=== PATIENT | male | born 1950 | race Caucasian/White ===

== ENCOUNTER 2023-05-05 09:02 | Inpatient (IN) ==
--- OUTSIDE RECORDS SUMMARY | 2023-05-05 09:08 | External Medical Summary | Summary of Care ---
Author Name Unknown Organization [facility] Address [address] [place] [address] Phone [phone] Care Team Providers Care Band Edger Name Role Phone Betty Muñoz MD Primary Care Provider [phone] Reason for Visit * Reason Onset Date Comments Advice 05/04/2023 COVID Encounter Details Date Type Department Care Team (Late st Contact Info) Description 05/04/2023 Telephone General Internal Medicine [facility] [address] [place] [address] Betty Muñoz MD [address] [place] [address] Advice (COVID) Allergies Active Allergy Reactions Criticality Noted Date Comments Iodinated Contrast Media Rash 10/06/2009 Iodine Rash 04/17/2001 documented as of this encounter (statuses as of 05/04/2023) Medications Medication Sig Dispensed Refills Start Date End Date Status VITAMIN B COMPLEX PO CAPS 1 cap daily 0 Active ASPIRIN EC 81 MG PO TBECIndications:Dysli pidemia, goal LDL below 100,Old myocardial infarct Take 1 Tablet by mouth in the morning. 0 07/05/2010 Active sterile water for irrigation SOLN 240 mL with hypertonic saline rinse PACK 2 Packet 2 Packets 2 times a day. 0 Active Vitamin D 25 MCG (1000 UT) Oral Tablet Take by mouth. 0 Active Magnesium Oxide 400 MG Oral TabletIndications:Jesus pauline variant,Visual aura Take 1 Tab by mouth daily. St 01/31/2021 1 Tab 0 01/31/2021 Active Metoprolol Succinate ER 25 MG Oral Tablet Extended Release 24 Hour (toPROL XL)Indications:Hypert rophic non-obstructive cardiomyopathy (HCC) Take 0.5 Tablets by mouth every evening. 45 Tablet 3 06/15/2022 Active Ipratropium Bern 0.03 % Nasal Solution 2 squirts each nostril 2-4 times daily. May precede with nasal saline 90 mL 3 08/15/2022 Active Zoster Vac Recomb Adjuvanted 50 MCG/0.5ML Intramuscular Suspension Reconstituted (Shingrix)Indications :Need for vaccination for zoster Inject 0.5 mL into a large muscle now and repeat dose in 60 to 180 days 1 Each 1 10/09/2022 Active CPAP every night at bedtime. 0 Active Atorvastatin Calcium 20 MG Oral Tablet (Lipitor)Indications: Dyslipidemia, goal LDL below 100 take 1 tablet by mouth once daily 90 Tablet 1 03/05/2023 Active Mometasone Furoate 50 MCG/ACT Nasal Suspension instill 2 sprays into each nostril once daily if needed for allergies 51 g 1 03/05/2023 Active Mirtazapine 15 MG Oral Tablet (Remeron)Indications: Generalized anxiety disorder,Panic disorder without agoraphobia,Recurrent major depressive disorder, in partial remission (HCC) Take 1.5 Tablets by mouth at bedtime. 45 Tablet 1 04/03/2023 Active busPIRone HCl 10 MG Oral Tablet (Buspar)Indications:G eneralized anxiety disorder,Panic disorder without agoraphobia Take 1 Tablet by mouth in the morning and 1 Tablet at noon and 1 Tablet in the evening and 1 Tablet before bedtime. 120 Tablet 2 04/16/2023 Active LORazepam 0.5 MG Oral Tablet (Ativan)Indications:G eneralized anxiety disorder,Panic disorder without agoraphobia Take 1 Tablet by mouth daily as needed for Anxiety. 30 Tablet 0 04/19/2023 Active documented as of this encounter (statuses as of 05/04/2023) Active Problems Problem Noted Date Diagnosed Date AGATHA (obstructive sleep apnea) 05/30/2022 Generalized anxiety disorder 02/24/2022 Panic disorder without agoraphobia 02/24/2022 Recurrent major depressive disorder, in partial remission 02/24/2022 Status post cataract surgery, unspecified latera lity 02/01/2022 Overview: Cataract surgery left-01/10/22, right-01/17/2022 Apical variant hypertrophic cardiomyopathy 02/01 Depression with anxiety 01/02/2022 Mixed rhinitis 01/19/2020 Visual aura 09/24/2018 Migraine variant 09/24/2018 LVH (left ventricular hypertrophy) 09/09/2018 Personal history of other malignant neoplasm of skin 03/04/2018 Overview: Trunk/neck GERD (gastroesophageal reflux disease) 3 DYSLIPIDEMIA, GOAL LDL BELOW 100 05/13/2009 Overview: Per Lipid Taxonomy. documented as of this encounter (statuses as of 05/04/2023) Resolved Problems Problem Noted Date Diagnosed Date Resolved Date Deviated nasal septum 12/15/20192021 Rhinorrhea 12/15/2019 01/19/2020 Helicobacter pylori (H. pylori) infection 12/29/2015 03/27/2019 Overview: Treated in 11/2015 Coronary atherosclerosis of [place] coronary artery 11/11/2010 02/06/2018 Old myocardial infarct 07/05/201010/25 UNILAT INGUINAL HERNIA- right 10/06/2009 03/04/2018 ADVANCE DIRECTIVE INFORMATION 07/21/2009 10/09/2022 Overview: Yes, Patient instructed to provide copy of advance directive for provider to review and to be scanned into Electronic Medical Record Dyslipidemia, goal LDL below 160 05/27/2008 05/13/2009 Overview: Per Lipid Taxonomy. 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 2 03/04/2018 Overview: ICD-10 update of inactive term Malignant neoplasm of skin of trunk 04/19/2002 03/04/2018 Overview: ICD-10 update of inactive term epidermal cyst - R eye 495 04/19/2002 03/04/2018 OTHER [id number] 04/19/2002 03/04/2018 Other atopic dermatitis 04/19/200212/03 Overview: ICD-10 update of inactive term Other allergic rhinitis 04/17/200101/02 Overview: ICD-10 update of inactive term Dyslipidemia, goal to be determined 04/28/2009 Overview: Per Lipid Taxonomy Acute WA, anterior wall 05/05 Hypoglycemia 12/27/2017 Benign neoplasm of prostate 03/04/2018 documented as of this encounter (statuses as of 05/04/2023) Immunizations Name Administration Dates Next Due COVID-19 mRNA, LNP-s, No Pre serve, 2-Dose Series (Moderna) 03/29/2021,07/30/2020,07/02/2020 COVID-19, mRNA, LNP-s, PF, B ooster, 100mcg/0.5mg (Moderna) 09/13/2021 Pneumococcal Conjugate Vacc, 13 Valent (Prevnar) 12/18/2016 Pneumococcal Polysaccharide PPV23 (Pneumovax) 12/27/2017,05/21/2006 SEASONAL INFLUENZA, PF, 6 M & Above, IM , (FLULAVAL or FLUZONE) 03/01/2018 Season Influenza, Quad, PF, Adjuvanted, 65+ Yrs, IM (FLUAD) 02/14/2020 Seasonal Influenza, Quadriva lent Hd (Fluzone Hd) 02/17/2023,04/08/2022,02/22/2021 Seasonal Influenza, Quadriva lent, No Preserve, IM 02/14/2017,03/06/2016 Seasonal Influenza, Split, I IV3, With Preserve, Inj 02/09/2015,03/04/2014,02/12/2013,02/02,03/18/2011,02/16/2010,04/28/20,04/07/2008,04/16/2007 02/10/2016 Seasonal Influenza, Trivalen t, Adjuvanted, 65+ yrs 02/10/2019 TD - Tetanus/Diptheria (ADULT) 10/10/2007 documented as of this encounter Social History Tobacco Use Types Packs/Day Years Used Date Smoking Tobacco: Former Cigarettes 2 20 Q uit: 01/02/1993 Smokeless Tobacco: Former Comments:no passive smoke Alcohol Use Standard Drinks/Week Comments No 0 (1 standard drink = 0.6 oz pur e alcohol) PHQ-2 Answer Date Recorded PHQ Adult Total Score 1 10/04/2022 Hunger Vital Sign Answer Date Recorded Within the past 12 months, y ou worried that your food would run out before you got the money to buy more. Never true 10/05/19 Within the past 12 months, t he food you bought just didn't last and you didn't have money to get more. Never true 10/04/2022 Sex and Gender Information Value Date Recorded Sex Assigned at Male 09/24/2018 11:17 AM EDT Gender Identity Male 09/24/2018 11:17 AM EDT Sexual Orientation Straight 09/24/2018 11 :17 AM EDT Job Start Date Occupation Industry Not on file Not on file Not on file documented as of this encounter Miscellaneous Notes * Telephone Encounter - Ollie Weiner LPN - 05/04/2023 4:36 PM EST Left message for patient to return call. * Telephone Encounter - Betty Muñoz MD - 05/04/2023 3:54 PM EST Noted. Recommend to monitor pulse ox , if <95% or If he has any worsening sx of [facility] or go to ER * Telephone Encounter - Demetria Romero LPN - 05/04/2023 2:38 PM EST Spoke with patient's . Patient had a slight sore throat and fever last evening but they are gone now. He is just not feeling well overall. "Out of sorts" as his put it. He does not wish to take the paxlovid at this time. * Telephone Encounter - Betty Muñoz MD - 05/04/2023 12:38 PM EST Clarify symptoms. Isolate for 5 days from onset of symptoms, increase intake of fluids, Tylenol as needed for fever or body aches. Continue to wear mask of for for 5 additional days when out of the home.If not willing/able to wear mask needs to isolate for 10 days. We can try Paxlovid to reduce risk of worsening COVID. This medication is not FDA approved but usedunder the EUA. If patient is willing to try it, prescription will be sent. No alcohol or tylenol >2gm/day while on medication , hold statin while on med * Telephone Encounter - Yolette Saenz OSA - 05/04/2023 8:54 AM EST Reason for patient call/what is patient requesting? Has COVID. Wants advise on what to do. Have you had symptoms of COVID-19 such as fever, sore throat, shortness of breath? COVID19 Symptoms:yes Date of first symptoms: 05/03 Date of last fever: 05/04 Date of last symptoms: 05/04 Have you had close exposure to someone who tested positive for COVID-19? COVID19 Exposure: no Date of first exposure: Unknown Date of last exposure: unknown Testing location requested: Positive COVID 19 test in the past 90 days? Clinic Test No Home test Yes, positive Did you have 2 vaccines Yes Boosters Yes Call Details are Required documented in this encounter Plan of Treatment Upcoming Encounters Date Type Department Care Team (Late st Contact Info) Description 05/07/2023 11:00 AM EST Office Visit Psychiatry, [facility] [address] [place] [address] Shahla Lopez CRNP [address] [place] [address] 05/07/2023 3:00 PM EST Telemedicine Psychology, [address] [address], Psychology Group [address] [place] [address] 05/09/2023 10:00 AM EST Office Visit Dermatology [facility] [address] [place] [address] Alexsandra Butts PA-C [address] [facility] [place] [phone] 05/14/2023 3:00 PM EST Telemedicine Psychology, [address] [address], Psychology Group [address] [place] [phone] 05/21/2023 3:00 PM EST Telemedicine Psychology, [address] [address], Psychology Group [address] [place] [address] 10/10/2023 10:00 AM EDT Nurse Only Ancillary [facility] [address] [place] [address] Im, Nurse Annual Wellness [facility] [address] [place] [address] 10/10/2023 12:00 PM EDT Office Visit General Internal Medicine [facility] [address] [place] [address] Betty Muñoz MD [address] [facility] [place] [address] 01/31/2024 10:30 AM EDT Office Visit Allergy/Immunology [facility] [place] [address] [facility] [place] [address] Malgorzata Ingram PA-C [address] [facility] [place] [address] 03/21/2024 10:00 AM EDT Office Visit Sleep Disorders Ctr [facility] [place] [address] [place] [phone] Carla Montoya DO [address] [place] [address] 04/25/2024 1:40 PM EST Office Visit Dermatology [facility] [place] [address] [facility] [place] [address] Alexsandra Butts PA-C [address] [facility] [place] [phone] Health Maintenance Due Date Last Done Comments Hepatitis C Screening 1968 Cologuard 02/22/1996 Fecal Occult Blood Test 02/22/1996 Sigmoidoscopy 02/22/1996 Zoster Vaccines (1 of 2) 2001 DTaP,Tdap,and Td Vaccines (1 - Tdap) 10/11/2007 10/10/2007 COVID-19 Vaccine ( season) 2023 09/13/2021, 03/29/2021, 07/30/2020, Additional history exists Depression Screening 10/05/2023 10/04/2022 Colonoscopy 2027 2017, 02/03, 02/20/2014, Additional history exists Colorectal Cancer Screening 2027 Lipid Panel 09/16/2027 09/15/2022, 10/03, 01/31/2021, Additional history exists AAA Screening Completed 01/23/2017 Pneumococcal Vaccine: 65+ Years Completed 12/27/2017, 12/18/2016, 05/21/2006 Influenza Vaccine (FLU shot) Completed , 04/08/2022, 02/22/2021, Additional history exists GARDASIL-HPV IMMUNIZATION SERIES Aged Out No longer eligible based on patient's age to complete this topic Hepatitis B Aged Out No longer eligi ble based on patient's age to complete this topic MENINGOCOCCAL (MENACTRA/MENVEO) Aged Out No longer eligible based on patient's age to complete this topic documented as of this encounter Medical Devices Implanted Type Area Police Captain Senior Device Identifier Shelf Expiration Date Model / Serial / Lot Lens Intraoc 20.0 - [id number] - [id number] Implanted:Qty: 1 on 01/10/2022 by Woodrow Merlos MD at [facility] Left: Eye [employer] 06/03/2026 [id number] / [id number] / [id number] Lens Intraoc 20.0 - [id number] - [id number] Implanted:Qty: 1 on 01/17/2022 by Woodrow Merlos MD at [facility] Right: Eye [employer] 07/04/2026 [id number] / [id number] / [id number] documented as of this encounter Advance Directives Latest Code Status on File Code Status Date Activated Date Inactivated Comments No Code 01/17/2022 12:53 PM 01/17/2022 7:09 PM This order reflects the patients wishes and were consensually agreed upon. Question Answer Comments Discussion of Advance Directives occurred with: Patient Does the patient have a Living Will? No Does the patient have Health Care Power of Business Intelligence Reporting Analyst? No Code Status History Code Status Date Activated Date Inactivated Comments No Code 01/10/2022 10:23 AM 01/10/2022 4:37 PM This o rder reflects the patients wishes and were consensually agreed upon. Question Answer Comments Discussion of Advance Directives occurred with: Patient Does the patient have a Living Will? No Does the patient have Health Care Power of Business Intelligence Reporting Analyst? No Care Teams Band Edger Relationship Specialty Start Date End Date Betty Muñoz MD [address] [place] [address] PCP - General Internal Medicine 01/31/21 documented as of this encounter
--- OUTSIDE RECORDS SUMMARY | 2023-05-05 09:08 | External Medical Summary | Summary of Care ---
Author Name Unknown Organization [facility] Address [address] [place] [address] Phone [phone] Care Team Providers Care Machine Bender Name Role Phone Betty Muñoz MD Primary Care Provider [phone] Reason for Visit * Reason Comments NEW PATIENT New pt here for Reti na Evaluation. Pt states "I having issues with glare at night and film over my eyes. I did have cataract surgery and laser afterwards." Notes Dr. Carolina put plugs in and using drops and it help with film Encounter Details Date Type Department Care Team (Late st Contact Info) Description 04/11/2023 10:30 AM EST Office Visit Ophthalmology, [facility] [address] [facility] [place] [address] Corey Casiano, 132 [facility] [place] [address] Visual distortions of shape and size*; Glare sensitivity Allergies Active Allergy Reactions Criticality Noted Date Comments Iodinated Contrast Media Rash 10/06/2009 Iodine Rash 04/17/2001 documented as of this encounter (statuses as of 04/11/2023) Medications Medication Sig Dispensed Refills Start Date [...] evening. 45 Tablet 3 06/15/2022 Active Ipratropium [place] 0.03 % Nasal Solution 2 squirts each [...] CPAP every night at bedtime. 0 Active busPIRone HCl 10 MG Oral Tablet (Buspar)Indications:G eneralized anxiety disorder,Panic disorder without agoraphobia Take 1 Tablet by mouth in the morning and 1 Tablet at noon and 1 Tablet in the evening and 1 Tablet before bedtime. 120 Tablet 2 01/17/2023 Active Atorvastatin Calcium 20 MG Oral Tablet (Lipitor)Indications: Dyslipidemia, goal LDL below 100 take 1 tablet by mouth once daily 90 Tablet 1 03/05/2023 Active Mometasone Furoate 50 MCG/ACT Nasal Suspension instill 2 sprays into each nostril once daily if needed for allergies 51 g 1 03/05/2023 Active LORazepam 0.5 MG Oral Tablet (Ativan)Indications:G eneralized anxiety disorder,Panic disorder without agoraphobia Take 1 Tablet by mouth daily as needed for Anxiety. 30 Tablet 0 03/12/2023 Active Mirtazapine 15 MG Oral Tablet (Remeron)Indications: Generalized anxiety disorder,Panic disorder without agoraphobia,Recurrent major depressive disorder, in partial remission (HCC) Take 1.5 Tablets by mouth at bedtime. 45 Tablet 1 04/03/2023 Active documented as of this encounter (statuses as of 04/11/2023) Active Problems Problem Noted Date Diagnosed Date [...] as of this encounter (statuses as of 04/11/2023) Resolved Problems Problem Noted Date Diagnosed Date Resolved Date Deviated nasal septum 12/15/20192021 Rhinorrhea 12/15/2019 01/19/2020 Helicobacter pylori (H. pylori) infection 12/29/2015 03/27/2019 Overview: Treated in 11/2015 Coronary atherosclerosis of [place] coronary artery 11/11/2010 02/06/2018 Old myocardial infarct [...] inactive term epidermal cyst - R eye 04/19/2002 03/04/2018 OTHER ACNE-04/19/2002 03/04/2018 Other atopic dermatitis 04/19/200212/03 Overview: ICD-10 update of inactive term Other allergic rhinitis 04/17/200101/02 Overview: ICD-10 update of inactive term Dyslipidemia, goal to be determined 04/28/2009 Overview: Per Lipid Taxonomy Acute [place], anterior wall 05/05 Hypoglycemia 12/27/2017 Benign neoplasm of prostate 03/04/2018 documented as of this encounter (statuses as of 04/11/2023) Immunizations Name Administration Dates Next Due COVID-19 [...] Influenza, Split, I IV3, With Preserve, Inj 02/09/2015,03/04/2014,02/12/2013,02/02,03/18/2011,02/16/2010,04/28/20 09,04/07/2008,04/16/2007 02/10/2016 Seasonal Influenza, Trivalen t, Adjuvanted, 65+ yrs 02/10/2019 TD - Tetanus/Diptheria (ADULT) 10/10/2007 documented as of this encounter Social History Tobacco Use Types Packs/Day Years Used Date Smoking Tobacco: Former Cigarettes 2 20 Q uit: 01/02/1993 Smokeless Tobacco: Former Tobacco Cessation:Counseling Given: Not Answered Comments:no passive smoke Alcohol Use Standard Drinks/Week Comments No 0 (1 standard drink = 0.6 oz pur e alcohol) PHQ-2 Answer Date Recorded PHQ Adult Total Score 1 10/04/2022 Hunger Vital Sign Answer Date Recorded Within the past 12 months, y ou worried that your food would run out before you got the money to buy more. Never true 10/05/19 23 Within the past 12 months, t he [...] on file documented as of this encounter Last Filed Vital Signs Vital Sign Reading Time Taken Comments Blood Pressure 134/80 04/11/2023 10:54 AM EST Pulse 54 04/11/2023 10:54 AM EST Temperature - - Respiratory Rate - - Oxygen Saturation - - Inhaled Oxygen Concentration - - Weight - - Height - - Body Mass Index - - documented in this encounter Progress Notes * Corey Casiano DO - 04/11/2023 10:30 AM EST [facility] [place] Nursing notes reviewed. Eye vitals reviewed. Mood and Affect: normal HPI: Timothy Sorensen Jr. is a 73 year old male who presents for evaluation of retinas CC: glare Vision: unchanged Location (of CC): OU Quality/Severity: moderate Duration: >3 years Timing: gradual Context: nightime worse Associated Signs/Symptoms: none Modifying Factors: none No other eye complaints. Denies significant pain. Base Eye Exam Visual Acuity (Snellen - Linear) Right Left Dist sc 20/25 20/40 -1 Dist ph sc NI Correction: Glasses Tonometry (Tonopen, 10:41 AM) Right Left Pressure 14 10 Pupils Light Shape React APD Right 4 Round Brisk None Left 4 Round Brisk None Visual Kathleen (Counting fingers) Right Left Full Full Extraocular Movement Right Left Full Full Neuro/Psych Oriented x3: Yes Mood/Affect: Normal Dilation Both eyes: 0.5% Proparacaine, 2.5% Phenylephrine, 1.0% Mydriacyl @ 10:41 AM EXTERNAL: The ocular adnexae are unremarkable. SLE: Lids/Lashes: wnl OU Conjunctiva/Sclera: quiet OU Cornea: clear OU Anterior Chamber: deep and quiet OU Iris: normal OU; no NVI OU Lens: PCIOL OU; yag cap OU Dilated fundus exam OD: vitreous: clear, pvd optic nerve: 0.55, no edema/pallor/NVD macula: irreg fvr vessels: wnl periphery: wnl, no RT/RD Dilated fundus exam OS: vitreous: clear, pvd optic nerve: 0.55, no edema/pallor/NVD macula: irreg fvr vessels: wnl periphery: wnl, no RT/RD OCT Interpretation: OD: wide foveal depression, no irf/srf, +pvd OS: wide foveal depression, no irf/srf, +pvd OCTA Interpretation: 04/11/2023 OD: nml OS: nml A/P: 1. Wide foveal pit/depression OU -anatomical variance -no tx -does not correlate w/ pt's complaint of ongoing glare for 3 years F/u w/ retina prn Corey Casiano DO CC: Betty Muñoz MD CC: PCP: Betty Muñoz MD documented in this encounter Nursing Notes * Toy Vela COA - 04/11/2023 10:31 AM EST Timothy Sorensen Jr. is a 73 year old year old male referred by Dr. Carolina to evaluate for possible Retinal Evaluation. Patient's name preference, 'Genna'. Patient currently states Pt states "I having issues with glare at night and film over my eyes. I did have cataract surgery and laser afterwards." Notes put plugs in and using drops and it help with film Have you ever had any major surgery of serious injury of or around the eyes- yes (Cataract Surgery OU 2021, YAG CAP OU 2021) Are you diabetic? No FAMILY HISTORY: Family History Problem Relation Age of Onset Cancer Mother Other (Other) Mother denies any family history of skin diseases or skin cancer Hypertension Father Allergies Sister allergic rhinitis on AIT SOCIAL HISTORY: Social History Tobacco Use Smoking status: Former Packs/day: 2.00 Years: 20.00 Additional pack years: 0.00 Total pack years: 40.00 Types: Cigarettes Quit date: 01/02/1993 Years since quittin.2 Smokeless tobacco: Former Tobacco comments: no passive smoke Vaping Use Vaping Use: Never used Substance Use Topics Alcohol use: No Drug use: No PMH: Past Medical History: Diagnosis Date Acute IL, anterior wall (HCC) [facility] ?embolus cath Benign neoplasm of prostate Dyslipidemia, goal LDL below 100 05/13/2009 Per Lipid Taxonomy. Dyslipidemia, goal to be determined epidermal cyst - R eye 04/19/2002 GERD (gastroesophageal reflux disease) 08/22/2012 Helicobacter pylori (H. 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 04/19/2002 ICD-10 update of inactive term Malignant neoplasm of skin of trunk 04/29/2002 ICD-10 update of inactive term Migraine variant 09/24/2018 Sleep apnea, obstructive Patient Active Problem List Diagnosis Code DYSLIPIDEMIA, GOAL LDL BELOW 100 E78.5 GERD (gastroesophageal reflux disease) K21.9 Personal history of other malignant neoplasm of skin Z85.828 LVH (left ventricular hypertrophy) I51.7 Visual aura H53.9 Migraine variant G43.809 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 yes OCT image(s) of both eyes acquired and filed/scanned into chart. documented in this encounter Plan of Treatment Upcoming Encounters Date Type Department Care Team (Late st Contact Info) Description 04/18/2023 10:40 AM EST Office Visit Dermatology [facility] [place] [address] [place] [address] Alexsandra Butts PA-C [address] [place] [phone] 05/07/2023 11:00 AM EST Office Visit Psychiatry, [facility] [address] [facility] [place] [address] Shahla Lopez CRNP [address] [facility] [place] [address] 10/10/2023 10:00 AM EDT Nurse Only Ancillary [facility] [place] [address] [facility] [place] [address] Im, Nurse Annual Wellness [facility] [address] [facility] [place] [address] 10/10/2023 12:00 PM EDT Office Visit General Internal Medicine [facility] [address] [facility] [place] [address] Betty Muñoz MD [address] [facility] [place] [address] 01/31/2024 10:30 AM EDT Office Visit Allergy/Immunology [facility] [place] [address] [facility] [place] [address] Malgorzata Ingram PA-C [address] [facility] [place] [address] 03/21/2024 10:00 AM EDT Office Visit Sleep Disorders Ctr [facility] [address] [facility] [place] [phone] Carla Montoya DO [address] [place] [address] Scheduled Orders Name Type Priority Associated Diagnoses Orde r Schedule RETINA SCAN DIAGNOSTIC IMAGE, POSTERIOR Procedures Routine Visual distortions of shape and size Ordered: 04/11/2023 FUNDUS PHOTOGRAPHY Procedures Routine Visual distortions of shape and size Ordered: 04/11/2023 Health Maintenance Due Date Last Done Comments Hepatitis C Screening 1968 Cologuard 02/22/1996 Fecal Occult Blood Test 02/22/1996 Sigmoidoscopy 02/22/1996 Zoster Vaccines (1 of 2) 2001 DTaP,Tdap,and Td Vaccines (1 - Tdap) 10/11/2007 10/10/2007 COVID-19 Vaccine (5 - 2022- season) 2023 09/13/2021, 03/29/2021, 07/30/2020, Additional history [...] this encounter Medical Devices Implanted Type Area Pure Pak Machine Operator Device Identifier Shelf Expiration Date Model / Serial / Lot Lens Intraoc 20.0 - [id number] - [id number] Implanted:Qty: 1 on 01/10/2022 by Woodrow Merlos MD at OR [facility] Left: Eye [employer] 06/03/2026 [id number] / [id number] / [id number] Lens Intraoc 20.0 - [id number] - [id number] Implanted:Qty: 1 on 01/17/2022 by Woodrow Merlos MD at OR [facility] Right: Eye BA[employer]CH [employer] LOMB 07/04/2026 [id number] / [id number] / [id number] documented as of this encounter Visit Diagnoses Diagnosis Visual distortions of shape and size- Primary Glare sensitivity Other specified visual disturbances documented in this encounter Advance Directives Latest Code Status on File Code Status Date Activated Date Inactivated Comments No Code 01/17/2022 12:53 PM 01/17/2022 7:09 PM This order reflects the patients wishes and were consensually agreed upon. Question Answer Comments Discussion of Advance Directives occurred with: Patient Does the patient have a Living Will? No Does the patient have Health Care Power of Engineer Automated Equipment? No Code Status History Code Status Date Activated Date Inactivated Comments No Code 01/10/2022 10:23 AM 01/10/2022 4:37 PM This o rder reflects the patients wishes and were consensually agreed upon. Question Answer Comments Discussion of Advance Directives occurred with: Patient Does the patient have a Living Will? No Does the patient have Health Care Power of Engineer Automated Equipment? No Care Teams Machine Bender Relationship Specialty Start Date End Date Betty Muñoz MD [address] [place] [address] PCP - General Internal Medicine 01/31/21 documented as of this encounter
--- OUTSIDE RECORDS SUMMARY | 2023-05-05 09:08 | External Medical Summary | Summary of Care ---
Author Name Unknown Organization [facility] Address [address] [place] [address] Phone [phone] Care Team Providers Care Van Cdl Driver Name Role Phone Betty Muñoz MD Primary Care Provider [phone] Encounter Details Date Type Department Care Team (Late st Contact Info) Description 04/24/2023 Telephone Dermatology [facility] [address] [place] [address] Alexsandra Butts PA-C [address] [place] [phone] Allergies Active Allergy Reactions Criticality Noted Date Comments Iodinated Contrast Media Rash 10/06/2009 Iodine Rash 04/17/2001 documented as of this encounter (statuses as of 04/24/2023) Medications Medication Sig Dispensed Refills Start Date [...] evening. 45 Tablet 3 06/15/2022 Active Ipratropium [place] 0.03 % Nasal Solution 2 squirts each [...] as of this encounter (statuses as of 04/24/2023) Active Problems Problem Noted Date Diagnosed Date [...] as of this encounter (statuses as of 04/24/2023) Resolved Problems Problem Noted Date Diagnosed Date Resolved Date Deviated nasal septum 12/15/20192021 Rhinorrhea 12/15/2019 01/19/2020 Helicobacter pylori (H. pylori) infection 12/29/2015 03/27/2019 Overview: Treated in 11/2015 Coronary atherosclerosis of [place] coronary artery 11/11/2010 02/06/2018 Old myocardial infarct [...] inactive term epidermal cyst - R eye 4/95 04/19/2002 03/04/2018 OTHER ACNE-3/93 04/19/2002 03/04/2018 Other atopic dermatitis 04/19/200212/03 Overview: ICD-10 update of inactive term Other allergic rhinitis 04/17/200101/02 Overview: ICD-10 update of inactive term Dyslipidemia, goal to be determined 04/28/2009 Overview: Per Lipid Taxonomy Acute [place], anterior wall 05/05 Hypoglycemia 12/27/2017 Benign neoplasm of prostate 03/04/2018 documented as of this encounter (statuses as of 04/24/2023) Immunizations Name Administration Dates Next Due COVID-19 [...] encounter Miscellaneous Notes * Telephone Encounter - Abbey Gallegos LPN - 04/24/2023 2:40 PM EST Patient aware of results and need to return for curettage of BCC on arm. * Telephone Encounter - Abbey Gallegos LPN - 04/24/2023 2:40 PM EST ----- Message from Alexsandra Butts PA-C sent at 04/24/2023 2:29 PM EST ----- Please let him know that biopsy shows BCC. Please schedule curettage A. Skin, R forearm, shave: Basal cell carcinoma, nodular type documented in this encounter Plan of Treatment Upcoming Encounters Date Type Department Care Team (Late st Contact Info) Description 05/07/2023 11:00 AM EST Office Visit Psychiatry, [facility] [address] [place] [address] Shahla Lopez CRNP 200 [facility] [place] [address] 10/10/2023 10:00 AM EDT Nurse Only Ancillary [facility] [address] [facility] [place] [address] Im, Nurse Annual Wellness [facility] [address] [facility] [place] [address] 10/10/2023 12:00 PM EDT Office Visit General Internal Medicine [facility] [place] [address] Betty Muñoz MD 200 [facility] [place] [address] 01/31/2024 10:30 AM EDT Office Visit Allergy/Immunology [facility] [place] [address] [place] [address] Malgorzata Ingram PA-C [address] [facility] [place] [address] 03/21/2024 10:00 AM EDT Office Visit Sleep Disorders Ctr [facility], [place] [address] [place] [phone] Carla Montoya, [address] [place] [phone] 04/25/2024 1:40 PM EST Office Visit Dermatology [facility] [place] [address] [place] [address] Alexsandra Butts PAMargaretC 200 [facility] [place] [address] Health Maintenance Due Date Last Done Comments Hepatitis C Screening 1968 Cologuard 02/22/1996 Fecal Occult Blood Test 02/22/1996 Sigmoidoscopy 02/22/1996 Zoster Vaccines (1 of 2) 2001 DTaP,Tdap,and Td Vaccines (1 - Tdap) 10/11/2007 10/10/2007 COVID-19 Vaccine (5 - 2022-24 season) 2023 09/13/2021, 03/29/2021, 07/30/2020, Additional history [...] this encounter Medical Devices Implanted Type Area Airline Attendant Device Identifier Shelf Expiration Date Model / Serial / Lot Lens Intraoc 20.0 - [id number] - [id number] Implanted:Qty: 1 on 01/10/2022 by Woodrow Merlos MD at OR [facility] Left: Eye [employer]OM[employer] 06/03/2026 [id number] / [id number] / [id number] Lens Intraoc 20.0 - [id number] - [id number] Implanted:Qty: 1 on 01/17/2022 by Woodrow Merlos MD at [facility] Right: Eye BAUSCH [employer] LOMB 07/04/2026 [id number] / [id number] / [id number] documented as of this encounter Advance Directives [...] the patient have Health Care Power of Cartography Supervisor? No Code Status History Code Status Date Activated Date Inactivated Comments No Code 01/10/2022 10:23 AM 01/10/2022 4:37 PM This o rder reflects the patients wishes and were consensually agreed upon. Question Answer Comments Discussion of Advance Directives occurred with: Patient Does the patient have a Living Will? No Does the patient have Health Care Power of Cartography Supervisor? No Care Teams Van Cdl Driver Relationship Specialty Start Date End Date Betty Muñoz MD 200 [place] [address] PCP - General Internal Medicine 01/31/21 documented as of this encounter
--- OUTSIDE RECORDS SUMMARY | 2023-05-05 09:08 | External Medical Summary | Summary of Care ---
Author Name Unknown Organization [facility] Address [address] [place] [address] Phone [phone] Care Team Providers Care Boat Tender Name Role Phone Betty Muñoz MD Primary Care Provider [phone] Encounter Details Date Type Department Care Team (Late st Contact Info) Description 04/24/2023 Telephone Dermatology [facility] [address] [place] [address] Alexsandra Butts PA-C [address] [place] [address] Allergies Active Allergy Reactions Criticality Noted Date Comments Iodinated Contrast Media Rash 10/06/2009 Iodine Rash 04/17/2001 documented as of this encounter (statuses as of 04/30/2023) Medications Medication Sig Dispensed Refills Start Date [...] evening. 45 Tablet 3 06/15/2022 Active Ipratropium [place] 0.03 % Nasal Solution 2 squirts each [...] as of this encounter (statuses as of 04/30/2023) Active Problems Problem Noted Date Diagnosed Date [...] as of this encounter (statuses as of 04/30/2023) Resolved Problems Problem Noted Date Diagnosed Date Resolved Date Deviated nasal septum 12/15/20192021 Rhinorrhea 12/15/2019 01/19/2020 Helicobacter pylori (H. pylori) infection 12/29/2015 03/27/2019 Overview: Treated in 11/2015 Coronary atherosclerosis of [place] coronary artery 11/11/2010 02/06/2018 Old myocardial infarct [...] determined 04/28/2009 Overview: Per Lipid Taxonomy Acute [place], anterior wall 05/05 Hypoglycemia 12/27/2017 Benign neoplasm of prostate 03/04/2018 documented as of this encounter (statuses as of 04/30/2023) Immunizations Name Administration Dates Next Due COVID-19 [...] Split, I IV3, With Preserve, Inj 02/09/2015,03/04/2014,02/12/2013,02/02,03/18/2011,02/16/2010,04/28/20 09,04/07/2008,04/16/2007,03/30/2005,0 06/29/2004,03/26/2003,04/07/2002,04/22,06/12/2000 02/10/2016 Seasonal Influenza, Trivalen t, Adjuvanted, 65+ [...] encounter Miscellaneous Notes * Telephone Encounter - Karen Kang OSA - 04/30/2023 8:21 AM EST Called patient, left message to return call. Placed pt on schedule since it was Alexsandra's only opening for May.09 at 10am. Please confirm if this appointment will work for patient. * Telephone Encounter - Abbey Gallegos LPN [...] 05/07/2023 11:00 AM EST Office Visit Psychiatry, [facility] [address] [facility] [place] [address] Shahla Lopez CRNP [address] [facility] [place] [address] 05/09/2023 10:00 AM EST Office Visit Dermatology [facility] [place] [address] [place] [address] Alexsandra Butts PA-C [address] [facility] [place] [phone] 10/10/2023 10:00 AM EDT Nurse Only Ancillary [facility] [place] [facility] [place] [address] Im, Nurse Annual Wellness [facility] [address] [place] [address] 10/10/2023 12:00 PM EDT Office Visit General Internal Medicine [facility] [place] [address] [place] [address] Betty Muñoz MD 200 [facility] [place] [address] 01/31/2024 10:30 AM EDT Office Visit Allergy/Immunology [facility] [address] [place] [address] Malgorzata Ingram PA-C [address] [place] [address] 03/21/2024 10:00 AM EDT Office Visit Sleep Disorders Ctr [facility] [address] [place] [phone] Carla Montoya, [address] [place] [address] 04/25/2024 1:40 PM EST Office Visit Dermatology [facility] [address] [place] [address] Alexsandra Butts PA-C [address] [facility] [place] [phone] Health Maintenance Due Date Last Done Comments [...] this encounter Medical Devices Implanted Type Area Sandfill Operator Device Identifier Shelf Expiration Date Model / Serial / Lot Lens Intraoc 20.0 - [id number] - [id number] Implanted:Qty: 1 on 01/10/2022 by Woodrow Merlos MD at OR [facility] Left: Eye [employer] LOMB 06/03/2026 [id number] / [id number] / [id number] Lens Intraoc 20.0 - [id number] - [id number] Implanted:Qty: 1 on 01/17/2022 by Woodrow Merlos MD at OR [facility] Right: Eye BAUSCH [employer] LOMB 07/04/2026 [id number] / [id number] / [id number] documented as of this encounter Advance Directives [...] the patient have Health Care Power of Apple Turner? No Code Status History Code Status Date Activated Date Inactivated Comments No Code 01/10/2022 10:23 AM 01/10/2022 4:37 PM This o rder reflects the patients wishes and were consensually agreed upon. Question Answer Comments Discussion of Advance Directives occurred with: Patient Does the patient have a Living Will? No Does the patient have Health Care Power of Apple Turner? No Care Teams Boat Tender Relationship Specialty Start Date End Date Betty Muñoz MD 200 [place] [address] PCP - General Internal Medicine 01/31/21 documented as of this encounter
--- OUTSIDE RECORDS SUMMARY | 2023-05-05 09:08 | External Medical Summary | Summary of Care ---
Author Name Unknown Organization [facility] Address [address] [place] [address] Phone [phone] Care Team Providers Care Low Emission Automobile Designer Name Role Phone Betty Muñoz MD Primary Care Provider [phone] Reason for Visit * Reason Onset Date Comments Advice 05/04/2023 COVID Encounter Details Date Type Department Care Team (Late st Contact Info) Description 05/04/2023 Telephone General Internal Medicine [facility] [address] [place] [address] Betty Muñoz MD [address] [place] [address] Advice (COVID) Allergies Active Allergy Reactions Criticality [...] evening. 45 Tablet 3 06/15/2022 Active Ipratropium [place] 0.03 % Nasal Solution 2 squirts each [...] Overview: Treated in 11/2015 Coronary atherosclerosis of [place] coronary artery 11/11/2010 02/06/2018 Old myocardial infarct [...] determined 04/28/2009 Overview: Per Lipid Taxonomy Acute OK, anterior wall 05/05 Hypoglycemia 12/27/2017 Benign neoplasm [...] [facility] or [...] 05/07/2023 11:00 AM EST Office Visit Psychiatry, [facility] [address] [place] [address] Shahla Lopez CRNP [address] [place] [address] 05/07/2023 3:00 PM EST Telemedicine Psychology, [address] [address], Psychology Group [address] [place] [phone] 05/09/2023 10:00 AM EST Office Visit Dermatology [facility] [address] [place] [address] Alexsandra Butts PA-C 200 [facility] [place] [phone] 05/14/2023 3:00 PM EST Telemedicine Psychology, [address] [address], Psychology Group [address] [place] [address] 05/21/2023 3:00 PM EST Telemedicine Psychology, [address] [address], Psychology Group [address] [place] [address] 10/10/2023 10:00 AM EDT Nurse Only Ancillary [facility] [address] [place] [address] Im, Nurse Annual Wellness [facility] [address] [place] [address] 10/10/2023 12:00 PM EDT Office Visit General Internal Medicine [facility] [address] [place] [address] Betty Muñoz MD 200 [facility] [place] [address] 01/31/2024 10:30 AM EDT Office Visit Allergy/Immunology [facility] [place] [address] [facility] [place] [address] Malgorzata Ingram PA-C 200 [facility] [place] [address] 03/21/2024 10:00 AM EDT Office Visit Sleep Disorders Ctr [facility] [place] [address] [place] [phone] Carla Montoya DO [address] [place] [address] 04/25/2024 1:40 PM EST Office Visit Dermatology [facility] [place] [address] [facility] [place] [address] Alexsandra Butts PA-C 200 [facility] [place] [phone] Health Maintenance Due Date Last Done Comments [...] this encounter Medical Devices Implanted Type Area Millinery Worker Device Identifier Shelf Expiration Date Model / Serial / Lot Lens Intraoc 20.0 - [id number] - [id number] Implanted:Qty: 1 on 01/10/2022 by Woodrow Merlos MD at OR [facility] Left: Eye [employer] 06/03/2026 [id number] / [id number] / [id number] Lens Intraoc 20.0 - [id number] - [id number] Implanted:Qty: 1 on 01/17/2022 by Woodrow Merlos MD at OR [facility] Right: Eye [employer] 07/04/2026 [id number] / [id number] / [id number] documented as of this encounter Advance Directives [...] the patient have Health Care Power of Concrete Stone Fabricator? No Code Status History Code Status Date Activated Date Inactivated Comments No Code 01/10/2022 10:23 AM 01/10/2022 4:37 PM This o rder reflects the patients wishes and were consensually agreed upon. Question Answer Comments Discussion of Advance Directives occurred with: Patient Does the patient have a Living Will? No Does the patient have Health Care Power of Concrete Stone Fabricator? No Care Teams Low Emission Automobile Designer Relationship Specialty Start Date End Date Betty Muñoz MD [address] [place] [address] PCP - General Internal Medicine 01/31/21 documented as of this encounter
--- OUTSIDE RECORDS SUMMARY | 2023-05-05 09:08 | External Medical Summary | Summary of Care ---
Author Name Unknown Organization [facility] Address [address] [place] [address] Phone [phone] Care Team Providers Care Taping Foreman Name Role Phone Betty Muñoz MD Primary Care Provider [phone] Reason for Visit * Reason Comments Follow Up 6 month follow up. H e states that there is something on his lower mid back that has been evaluated previously that is being watched. Patient's is concerned about the 'bag' under his right eye.Hx: BCC, SK Encounter Details Date Type Department Care Team (Late st Contact Info) Description 04/18/2023 10:40 AM EST Office Visit Dermatology [facility] [address] [place] [address] Alexsandra Butts PA-C 200 [facility] [place] [phone] Diffuse photodamage of skin*; Skin exam, screening for cancer; History of skin cancer; Skin tumor; Actinic keratosis Allergies Active Allergy Reactions Criticality Noted Date Comments Iodinated Contrast Media Rash 10/06/2009 Iodine Rash 04/17/2001 documented as of this encounter (statuses as of 04/28/2023) Medications Medication Sig Dispensed Refills Start Date End Date Status VITAMIN B COMPLEX PO CAPS 1 cap daily 0 Active ASPIRIN EC 81 MG PO TBECIndications:Dysl ipidemia, goal LDL below 100,Old myocardial infarct Take 1 Tablet by mouth in the morning. 0 07/05/2010 Active sterile water for irrigation SOLN 240 mL with hypertonic saline rinse PACK 2 Packet 2 Packets 2 times a day. 0 Active Vitamin D 25 MCG (1000 UT) Oral Tablet Take by mouth. 0 Active Magnesium Oxide 400 MG Oral TabletIndications:Mi graine variant,Visual aura Take 1 Tab by mouth daily. St 01/31/2021 1 Tab 0 01/31/2021 Active Metoprolol Succinate ER 25 MG Oral Tablet Extended Release 24 Hour (toPROL XL)Indications:Hyper trophic non-obstructive cardiomyopathy (HCC) Take 0.5 Tablets by mouth every evening. 45 Tablet 3 06/15/2022 Active Ipratropium [place] 0.03 % Nasal Solution 2 squirts each nostril 2-4 times daily. May precede with nasal saline 90 mL 3 08/15/2022 Active Zoster Vac Recomb Adjuvanted 50 MCG/0.5ML Intramuscular Suspension Reconstituted (Shingrix)Indication s:Need for vaccination for zoster Inject 0.5 mL into a large muscle now and repeat dose in 60 to 180 days 1 Each 1 10/09/2022 Active CPAP every night at bedtime. 0 Active Atorvastatin Calcium 20 MG Oral Tablet (Lipitor)Indications :Dyslipidemia, goal LDL below 100 take 1 tablet by mouth once daily 90 Tablet 1 03/05/2023 Active Mometasone Furoate 50 MCG/ACT Nasal Suspension instill 2 sprays into each nostril once daily if needed for allergies 51 g 1 03/05/2023 Active Mirtazapine 15 MG Oral Tablet (Remeron)Indications :Generalized anxiety disorder,Panic disorder without agoraphobia,Recurren t major depressive disorder, in partial remission (HCC) Take 1.5 Tablets by mouth at bedtime. 45 Tablet 1 04/03/2023 Active busPIRone HCl 10 MG Oral Tablet (Buspar)Indications: Generalized anxiety disorder,Panic disorder without agoraphobia Take 1 Tablet by mouth in the morning and 1 Tablet at noon and 1 Tablet in the evening and 1 Tablet before bedtime. 120 Tablet 2 04/16/2023 Active LORazepam 0.5 MG Oral Tablet (Ativan)Indications: Generalized anxiety disorder,Panic disorder without agoraphobia Take 1 Tablet by mouth daily as needed for Anxiety. 30 Tablet 0 03/12/2023 3 Discontinue d(Refill) documented as of this encounter (statuses as of 04/28/2023) Active Problems Problem Noted Date Diagnosed Date [...] as of this encounter (statuses as of 04/28/2023) Resolved Problems Problem Noted Date Diagnosed Date Resolved Date Deviated nasal septum 12/15/20192021 Rhinorrhea 12/15/2019 01/19/2020 Helicobacter pylori (H. 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 Please refer to the documented findings and plan of care. This patient's visit today consisted of an evaluation and management plan and procedure. I was available for in person consultation during and after the visit Melanie Zabala MD 04/28/2023 5:57 PM * Alexsandra Butts PA-C - 04/18/2023 10:40 AM EST SUBJECTIVE: History of Present Illness: Timothy Sorensen Jr. is a 73 year old male seen today for follow up of skin check. Date Last Appointment: 05/02/2022 (in office), Visit date not found (telemedicine) Hx of BCC L popliteal 2019, BCC L flank 2019, BCC mid vertex scalp 2020 most recently 2001 BCC scalp 2002 BCC right buttock 2006 BCC right preauricular 2006 BCC right lateral forehead 2007 BCC left chest 2008 BCC left neck 2009 BCC left shoulder 2009 BCC left caodaism 2010 BCC left medial back 2010 BCC left lateral back 2011 BCC left upper back 2011 BCC right lateral forehead 2011 BCC right preauricular 2011 BCC left upper back 2013 BCC right caodaism 2013 BCC right pretibial 2016 BCC right caodaism superior 2016 BCC left preauricular 2016 Atypical Leiomyoma chest 2017 BCC left medial suprascapular 2018 Cicatrix with tiny remnant of BCC left suprascapular/left posterior shoulder 2018 right post scalp BCC 2019 sup BCC right inferior leg 2019 infiltrating bcc vertex scalp Current lesion of concern: bag under eye, inflamed each morning after sleeping on the R side, scalyspot to midback REVIEW OF SYSTEMS: SKIN: No other new or changing moles. HEME/LYMPH: No new or enlarging lumps or bumps. MEDICA TIONS: Current Outpatient Medications Medication Sig Dispense Refill VITAMIN B COMPLEX PO CAPS 1 cap daily ASPIRIN EC 81 MG PO TBEC Take 1 Tablet by mouth in the morning. sterile water for irrigation SOLN 240 mL with hypertonic saline rinse PACK 2 Packet 2 Packets 2 times a day. Vitamin D 25 MCG (1000 UT) Oral Tablet Take by mouth. Magnesium Oxide 400 MG Oral Tablet Take 1 Tab by mouth daily. St 01/31/2021 1 Tab 0 Metoprolol Succinate ER 25 MG Oral Tablet Extended Release 24 Hour (toPROL XL) Take 0.5 Tablets by mouth every evening. 45 Tablet 3 Ipratropium [place] 0.03 % Nasal Solution 2 squirts each nostril 2-4 times daily. May precede with nasal saline 90 mL 3 Zoster Vac Recomb Adjuvanted 50 MCG/0.5ML Intramuscular Suspension Reconstituted (Shingrix) Inject 0.5 mL into a large muscle now and repeat dose in 60 to 180 days 1 Each 1 CPAP every night at bedtime. Atorvastatin Calcium 20 MG Oral Tablet (Lipitor) take 1 tablet by mouth once daily 90 Tablet 1 Mometasone Furoate 50 MCG/ACT Nasal Suspension instill 2 sprays into each nostril once daily if needed for allergies 51 g 1 LORazepam 0.5 MG Oral Tablet (Ativan) Take 1 Tablet by mouth daily as needed for Anxiety. 30 Tablet0 Mirtazapine 15 MG Oral Tablet (Remeron) Take 1.5 Tablets by mouth at bedtime. 45 Tablet 1 busPIRone HCl 10 MG Oral Tablet (Buspar) Take 1 Tablet by mouth in the morning and 1 Tablet at noonand 1 Tablet in the evening and 1 Tablet before bedtime. 120 Tablet 2 No current facility-administered medications for this visit. ALLERG IES: Iodinated contrast media and Iodine OBJECTIVE: GEN: Healthy, alert, no distress, appears oriented, pleasant, and cooperative. SKIN: Detailed exam of hair, face including lids and lips, neck, chest, abdomen, back, bilateral upper ext. (arm, hand, fingers), bilateral lower ext. (leg, foot, toes), and palpation of scalp completed and are normal except: 1. Scars- throughout 2. L preauricular- tiny pink papule with scale 3. R forearm- 3mm pink keratotic papule. 4. L dorsal foot- tiny brown macule with reticular pattern ASSESS MENT/PLAN: 1. Hx NMSC - no evidence of recurrence Discussed sun protection with patient including proper use of sunscreens and protective clothing. ABCDs explained 2. AK. Cryosurgery explained to the patient, consent obtained, patient, site and procedure verified, and then cryotherapy was performed with Liquid Nitrogen via cryo spray unit to 1 lesions. Locationnoted in physical exam. Post op course explained. 3. HAK vs Ak vs NMSC. Biopsy of the lesion noted above to establish and confirm diagnosis. The procedure, risks, benefits, alternatives and expected outcomes were discussed with the patient and consent was obtained. Time out called. Patient identified, procedure verified, site identified and verified. Patient and staff present in agreement. Area prepped with alcohol and anesthetized with 0.5% lidocaine with epinephrine at 1:200,000 concentration. Biopsy of lesion performed. 20% AlCl and bandaging applied. Specimen sent to pathology. Patient instructed in routine post-op care. 4. Favor lentigo or early SK. Photo taken. Present for over 1 year. If it changes, pt will let us know. Follow-up: 1 year There were no barriers tolearning and no other pain was related to today's visit. The patient and/or person accompanying patient demonstrates understanding of the visit and treatment. Alexsandra Butts PA-C 04/17/2023 9:27 PM documented in this encounter Nursing Notes * Bonnie Arcos MED ASSIST - 04/18/2023 10:36 AM EST Patient identified by name and date of . Do you have any concerns about pain management for today's visit? No Living Will or Advance Directive for Health Care as noted on problem list. [employer] is a way you can talk to your provider online through e-mail. Would you like to sign up? I can activate it for you? ALREADY ACTIVE. Chief Complaint Patient presents with Follow Up 6 month follow up. He states that there is something on his lower mid back that has been evaluated previously that is being watched. Patient's is concerned about the 'bag' under his right eye. Hx: BCC, SK documented in this encounter Miscellaneous Notes * Result Encounter Note - Alexsandra Butts PA-C - 04/24/2023 2:29 PM EST Please let him know that biopsy shows BCC. Please schedule curettage A. Skin, R forearm, shave: Basal cell carcinoma, nodular type documented in this encounter Plan of Treatment Upcoming Encounters Date Type Department Care Team (Late st Contact Info) Description 05/07/2023 11:00 AM EST Office Visit Psychiatry, [facility] [address] [place] [address] Shahla Lopez CRNP [address] [place] [address] 10/10/2023 10:00 AM EDT Nurse Only Ancillary [facility] [address] [place] [address] Im, Nurse Annual Wellness [facility] [address] [place] [address] 10/10/2023 12:00 PM EDT Office Visit General Internal Medicine [facility] [place] [address] [place] [address] Betty Muñoz MD 200 [facility] [place] [address] 01/31/2024 10:30 AM EDT Office Visit Allergy/Immunology [facility] [place] [address] [place] [address] Malgorzata Ingram PA-C [facility] [place] [address] 03/21/2024 10:00 AM EDT Office Visit Sleep Disorders Ctr [facility] [address] [place] [phone] Carla Montoya DO [address] [place] [address] 04/25/2024 1:40 PM EST Office Visit Dermatology [facility] [place] [address] [place] [address] Alexsandra Butts PA-C 200 [facility] [place] [phone] Health Maintenance Due Date Last Done Comments [...] this encounter Medical Devices Implanted Type Area Neurology Technician Device Identifier Shelf Expiration Date Model / Serial / Lot Lens Intraoc 20.0 - [id number] - [id number] Implanted:Qty: 1 on 01/10/2022 by Woodrow Merlos MD at [facility] Left: Eye [employer] 06/03/2026 [id number] / [id number] / [id number] Lens Intraoc 20.0 - [id number] - [id number] Implanted:Qty: 1 on 01/17/2022 by Woodrow Merlos MD at OR [facility] Right: Eye [employer]OM[employer] 07/04/2026 [id number] / [id number] / [id number] documented as of this encounter Procedures Procedure Name Priority Date/Time Associated Diagnosis Comments SURGICAL PATHOLOGY Routine 04/18/2023 11 :53 AM EST Skin tumor DERM IMAGE (SITE) Routine 04/18/2023 Skin exam, screening for cancer documented in this encounter Results * SURGICAL PATHOLOGY (04/18/2023 11:53 AM EST) Final Diagnosis A. Skin, R forearm, shave: Basal cell carcinoma, nodular type 04/23/2023 3:32 PM EST LAB[facility]ATORY [facility] Clinical History See Order Comments 04/23/2023 3:32 PM EST [facility] Order Comments A. R forearm- 3mm pink keratotic papule. HAK vs AK vs NMSC. 04/23/2023 3:32 PM EST [facility]ORY [facility] Gross Description A. Skin. Received in formalin with a container labeled with "Timothy Sorensen ", "[id number]", "[id number]" and " right forearm". Received is a 0.7 x 0.5 cm skin shave. The skin surface is a sandoval scaly hair-bearing papule. The underlying tissue is inked. The specimen is bisected and submitted in cassette A1. Gross By: KB 04/23/2023 3:32 PM EST LAB[facility]ATORY [facility] Photographic images and diagrams represent fowler findings in this case; they are not intended to replace a complete review of the final diagnostic report. The following statement applies to Flow Cytometry, Histology, In situ Hybridization Assays and Molecular Genetics. This test was developed and performed at [facility] and its performance characteristics determined by [employer]. It has not been cleared or approved by the U.S. Food and Drug Administration. The FDA has determined that such clearance or approval is not necessary. This test is used for clinical purposes. It should not be regarded as investigational or for research. Special stains, including histochemical stains, and studies using immunologic and LAUREN methodology (where applicable) are performed with appropriate positive and negative control reactions. 04/23/2023 3:32 PM EST LAB[facility]ATORY [facility] Tissue Skin structure / Unknown 04/18/2023 11:53 AM EST 04/18/2023 11:53 AM EST Comment:A. R forearm- 3mm pi nk keratotic papule. HAK vs AK vs NMSC. Alexsandra Butts PA-C LAB PATHOLOGY O RDERABLES [facility] [address] [place] [address] * DERM IMAGE (SITE) (04/18/2023) 04/18/2023 Alexsandra Butts PA-C DIGITAL PHOTOGR APHY documented in this encounter Visit Diagnoses Diagnosis Diffuse photodamage of skin- Primary Other chronic dermatitis due to solar radiation Skin exam, screening for cancer Screening for malignant neoplasm of the skin History of skin cancer Personal history of other malignant neoplasm of skin Skin tumor Neoplasm of uncertain behavior of skin Actinic keratosis documented in this encounter Advance Directives Latest Code Status on File Code Status Date Activated Date Inactivated Comments No Code 01/17/2022 12:53 PM 01/17/2022 7:09 PM This order reflects the patients wishes and were consensually agreed upon. Question Answer Comments Discussion of Advance Directives occurred with: Patient Does the patient have a Living Will? No Does the patient have Health Care Power of Bumper And Painter? No Code Status History Code Status Date Activated Date Inactivated Comments No Code 01/10/2022 10:23 AM 01/10/2022 4:37 PM This o rder reflects the patients wishes and were consensually agreed upon. Question Answer Comments Discussion of Advance Directives occurred with: Patient Does the patient have a Living Will? No Does the patient have Health Care Power of Bumper And Painter? No Care Teams Taping Foreman Relationship Specialty Start Date End Date Betty Muñoz MD [address] [place] [address], [place] [address] PCP - General Internal Medicine 01/31/21 documented as of this encounter
--- OUTSIDE RECORDS SUMMARY | 2023-05-05 09:08 | External Medical Summary | Summary of Care ---
Author Name Unknown Organization [facility] Address [address] [place] [address] Phone [phone] Care Team Providers Care Carbon Cutter Name Role Phone Betty Muñoz MD Primary Care Provider Reason for Visit * Reason Onset Date Comments Appointment 05/01/2023 [facility] Encounter Details Date Type Department Care Team (Late st Contact Info) Description 05/01/2023 Telephone Psychiatry, Kaila Wellington [address] [facility] [place] [address] Shahla Lopez CRNP [address] [place] [address] Appointment ([facility]) Allergies Active Allergy Reactions Criticality Noted Date Comments Iodinated Contrast Media Rash 10/06/2009 Iodine Rash 04/17/2001 documented as of this encounter (statuses as of 05/01/2023) Medications Medication Sig Dispensed Refills Start Date [...] evening. 45 Tablet 3 06/15/2022 Active Ipratropium [place] 0.03 % Nasal Solution 2 squirts each [...] as of this encounter (statuses as of 05/01/2023) Active Problems Problem Noted Date Diagnosed Date [...] as of this encounter (statuses as of 05/01/2023) Resolved Problems Problem Noted Date Diagnosed Date Resolved Date Deviated nasal septum 12/15/20192021 Rhinorrhea 12/15/2019 01/19/2020 Helicobacter pylori (H. 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 Spoke to patient and . Patient is agreeable to group. Patient has been scheduled in [facility]. 05/07-05/21. [facility] sent to patient. documented in this encounter Plan of Treatment Upcoming Encounters Date Type Department Care Team (Late st Contact Info) Description 05/07/2023 11:00 AM EST Office Visit Psychiatry, [address] [place] [address] Shahla Lopez CRNP [address] [place] [address] 05/07/2023 3:00 PM EST Telemedicine Psychology, [address] [address], Psychology Group [address] [place] [address] 05/09/2023 10:00 AM EST Office Visit Dermatology [facility] [address] [place] [address] Alexsandra Butts PA-C [address] [place] [phone] 05/14/2023 3:00 PM EST Telemedicine Psychology, [address] [address], Psychology Group [address] [place] [address] 05/21/2023 3:00 PM EST Telemedicine Psychology, [address] [address], Psychology Group [address] [place] [address] 10/10/2023 10:00 AM EDT Nurse Only Ancillary [facility] [address] [place], [place] [address] Im, Nurse Annual Wellness [facility] [address] [place], [place] [address] 10/10/2023 12:00 PM EDT Office Visit General Internal Medicine [facility] [address] [place] [address] Betty Muñoz MD [address] [place], [place] [address] 01/31/2024 10:30 AM EDT Office Visit Allergy/Immunology [facility] [address] [place] [address] Malgorzata Ingram PA-C 200 [facility] [place] [address] 03/21/2024 10:00 AM EDT Office Visit Sleep Disorders Ctr [facility] [address] [place] [phone] Carla Montoya, [address] [place] [address] 04/25/2024 1:40 PM EST Office Visit Dermatology [facility] [address] [place] [address] Alexsandra Butts PA-C 200 [facility] [place] [phone] Health Maintenance Due Date Last Done Comments Hepatitis C Screening 1968 Cologuard 02/22/1996 Fecal Occult Blood Test 02/22/1996 Sigmoidoscopy 02/22/1996 Zoster Vaccines (1 of 2) 2001 DTaP,Tdap,and Td Vaccines (1 - Tdap) 10/11/2007 10/10/2007 COVID-19 Vaccine ( - season) 2023 09/13/2021, 03/29/2021, 07/30/2020, Additional history [...] this encounter Medical Devices Implanted Type Area Education Director Device Identifier Shelf Expiration Date Model / Serial / Lot Lens Intraoc 20.0 - [id number] - [id number] Implanted:Qty: 1 on 01/10/2022 by Woodrow Merlos MD at OR [facility] Left: Eye [employer]CH [employer] LOMB 06/03/2026 [id number] / [id number] / [id number] Lens Intraoc 20.0 - [id number] - [id number] Implanted:Qty: 1 on 01/17/2022 by Woodrow Merlos MD at OR [facility] Right: Eye BAUSCH & LOMB 07/04/2026 [id number] / [id number] / [id number] documented as of this encounter Advance Directives Latest Code Status on File Code Status Date Activated Date Inactivated Comments No Code 01/17/2022 12:53 PM 01/17/2022 7:09 PM Thi s order reflects the patients wishes and were consensually agreed upon. Question Answer Comments Discussion of Advance Directives occurred with: Patient Does the patient have a Living Will? No Does the patient have Health Care Power of Food Editor? No Code Status History Code Status Date Activated Date Inactivated Comments No Code 01/10/2022 10:23 AM 01/10/2022 4:37 PM This o rder reflects the patients wishes and were consensually agreed upon. Question Answer Comments Discussion of Advance Directives occurred with: Patient Does the patient have a Living Will? No Does the patient have Health Care Power of Food Editor? No Care Teams Carbon Cutter Relationship Specialty Start Date End Date Betty Muñoz MD [address] [place] [address] PCP - General Internal Medicine 01/31/21 documented as of this encounter
--- OUTSIDE RECORDS SUMMARY | 2023-05-05 09:08 | External Medical Summary | Summary of Care ---
Author Name Unknown Organization [facility] Address [address] [place] [address] Phone [phone] Care Team Providers Care Twist Tester Name Role Phone Betty Muñoz MD Primary Care Provider [phone] Reason for Visit * Reason Comments Follow [...] AM EST Office Visit Dermatology [facility]aila [place] [address] [place] [address] Alexsandra Butts PA-C 200 [facility] [place] [phone] Diffuse photodamage of skin*; Skin exam, screening for cancer; History of skin cancer; Skin tumor; Actinic keratosis Allergies Active Allergy Reactions Criticality Noted Date Comments Iodinated Contrast Media Rash 10/06/2009 Iodine Rash 04/17/2001 documented as of this encounter (statuses as of 04/18/2023) Medications Medication Sig Dispensed Refills Start Date [...] 45 Tablet 3 06/15/2022 Active Ipratropium [place] 0.03 % Nasal Solution 2 squirts each [...] before bedtime. 120 Tablet 2 04/16/2023 Active documented as of this encounter (statuses as of 04/18/2023) Active Problems Problem Noted Date Diagnosed Date [...] as of this encounter (statuses as of 04/18/2023) Resolved Problems Problem Noted Date Diagnosed Date Resolved Date Deviated nasal septum 12/15/20192021 Rhinorrhea 12/15/2019 01/19/2020 Helicobacter pylori (H. 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 is a 73 year old male seen today for follow up of skin check. Date Last Appointment: 05/02/2022 (in office), Visit date not found (telemedicine) Hx of BCC L popliteal 2019, BCC L flank 2020, BCC mid vertex scalp 2020 most recently 2001 BCC scalp 2001 BCC right buttock 2006 BCC right preauricular 2006 BCC right lateral forehead 2007 BCC left chest 2008 BCC left neck 2009 BCC left shoulder 2009 BCC left baptist 2010 BCC left medial back 2009 BCC left lateral back 2010 BCC left upper back 2010 BCC right lateral forehead 2010 BCC right preauricular 2010 BCC left upper back 2012 BCC right baptist 2013 BCC right pretibial 2016 BCC right baptist superior 2016 BCC left preauricular 2016 Atypical [...] every evening. 45 Tablet 3 Ipratropium [place] 0.03 % Nasal Solution 2 squirts each [...] in this encounter Nursing Notes * Bonnie Arcos, MED ASSIST - 04/18/2023 10:36 AM EST Patient identified by name and date of . Do you have any concerns about pain management for today's visit? No Living Will or Advance Directive for Health Care as noted on problem list. Intelligent Beautyer is a way you can talk to [...] Hx: BCC, SK documented in this encounter Plan of Treatment Upcoming Encounters Date Type Department Care Team (Late st Contact Info) Description 05/07/2023 11:00 AM EST Office Visit Psychiatry, [facility] [address] [place] [address] Shahla Lopez CRNP [address] [place] [address] 10/10/2023 10:00 AM EDT Nurse Only Ancillary [facility] [place] [address] [place] [address] Im, Nurse Annual Wellness [facility] [address] [place] [address] 10/10/2023 12:00 PM EDT Office Visit General Internal Medicine [facility] [place] [address] [place] [address] Betty Muñoz MD [address] [place] [address] 01/31/2024 10:30 AM EDT Office Visit Allergy/Immunology [facility] [address] [place] [address] Malgorzata Ingram PA-C 200 [facility] [place] [address] 03/21/2024 10:00 AM EDT Office Visit Sleep Disorders Ctr [facility] [address] [place] [phone] Carla Montoya, [address] [place] [address] 04/25/2024 1:40 PM EST Office Visit Dermatology [facility] [address] [place] [address] Alexsandra Butts PA-C 200 [facility] [place] [phone] Pending Results Name Type Priority Associated Diagnoses Date /Time SURGICAL PATHOLOGY Pathology Routine Skin tumor 04/18/2023 11:53 AM EST Health Maintenance Due Date Last Done Comments [...] this encounter Medical Devices Implanted Type Area Industrial Roofer Device Identifier Shelf Expiration Date Model / Serial / Lot Lens Intraoc 20.0 - [id number] - [id number] Implanted:Qty: 1 on 01/10/2022 by Woodrow Merlos MD at OR [facility] Left: Eye BAUSCH [employer] LOMB 06/03/2026 [id number] / [id number] / [id number] Lens Intraoc 20.0 - [id number] - [id number] Implanted:Qty: 1 on 01/17/2022 by Woodrow Merlos MD at OR [facility] Right: Eye BAUSCH & LOMB 07/04/2026 [id number] / [id number] / [id number] documented as of this encounter Visit Diagnoses Diagnosis Diffuse photodamage [...] the patient have Health Care Power of Social Human Services Assistants? No Code Status History Code Status Date Activated Date Inactivated Comments No Code 01/10/2022 10:23 AM 01/10/2022 4:37 PM This o rder reflects the patients wishes and were consensually agreed upon. Question Answer Comments Discussion of Advance Directives occurred with: Patient Does the patient have a Living Will? No Does the patient have Health Care Power of Social Human Services Assistants? No Care Teams Twist Tester Relationship Specialty Start Date End Date Betty Muñoz MD [address] [place] [address], [place] [address] PCP - General Internal Medicine 01/31/21 documented as of this encounter
--- OUTSIDE RECORDS SUMMARY | 2023-05-05 09:08 | External Medical Summary | Summary of Care ---
Author Name Unknown Organization [facility] Address [address] [place] [address] Phone [phone] Care Team Providers Care Clothing Sales Assistant Name Role Phone Betty Muñoz MD Primary Care Provider [phone] Reason for Visit * Reason Onset Date Comments Medication Refill 04/16/2023 Encounter Details Date Type Department Care Team (Late st Contact Info) Description 04/16/2023 Refill Psychiatry, Kaila Wellington [address] [place] [address] LopezShahla CRNP [address] [place] [address] Generalized anxiety disorder; Panic disorder without agoraphobia Allergies Active Allergy Reactions Criticality Noted Date Comments Iodinated Contrast Media Rash 10/06/2009 Iodine Rash 04/17/2001 documented as of this encounter (statuses as of 04/16/2023) Medications Medication Sig Dispensed Refills Start Date [...] evening. 45 Tablet 3 06/15/2022 Active Ipratropium [place] 0.03 % Nasal Solution 2 squirts each [...] 03/05/2023 Active LORazepam 0.5 MG Oral Tablet (Ativan)Indications: Generalized anxiety disorder,Panic disorder without agoraphobia Take 1 Tablet by mouth daily as needed for Anxiety. 30 Tablet 0 03/12/2023 Active Mirtazapine 15 MG Oral Tablet (Remeron)Indications [...] before bedtime. 120 Tablet 2 04/16/2023 Active busPIRone HCl 10 MG Oral Tablet (Buspar)Indications: Generalized anxiety disorder,Panic disorder without agoraphobia Take 1 Tablet by mouth in the morning and 1 Tablet at noon and 1 Tablet in the evening and 1 Tablet before bedtime. 120 Tablet 2 01/17/2023 3 Discontinue d(Refill) documented as of this encounter (statuses as of 04/16/2023) Active Problems Problem Noted Date Diagnosed Date [...] as of this encounter (statuses as of 04/16/2023) Resolved Problems Problem Noted Date Diagnosed Date Resolved Date Deviated nasal septum 12/15/20192021 Rhinorrhea 12/15/2019 01/19/2020 Helicobacter pylori (H. pylori) infection 12/29/2015 03/27/2019 Overview: Treated in 11/2015 Coronary atherosclerosis of [place] coronary artery 11/11/2010 02/06/2018 Old myocardial infarct [...] as of this encounter (statuses as of 04/16/2023) Immunizations Name Administration Dates Next Due COVID-19 [...] encounter Miscellaneous Notes * Telephone Encounter - Shahla Lopez CRNP - 04/16/2023 2:51 PM ESTSigned Prescriptions: Disp Refills busPIRone HCl 10 MG Oral Tablet (Buspar) 120 Ta*2 Sig: Take 1 Tablet by mouth in the morning and 1 Tablet at noon and 1 Tablet in the evening and 1 Tablet before bedtime. Authorizing Provider: SHAHLA LOPEZ * Telephone Encounter - Michelle Werner OSA - 04/16/2023 7:01 AM EST Pharmacy requesting refill on Buspar 10mg. Medication was last filled on 01/17/23 with 2 refills. Patient last seen on 04/03/23 with return appointment scheduled for 05/07/23. Patient had 0 cancelledappointments and 0 NO SHOW appointments. documented in this encounter Plan of Treatment Upcoming Encounters Date Type Department Care Team (Late st Contact Info) Description 04/18/2023 10:40 AM EST Office Visit Dermatology [facility] [address] [employer], [place] [address] Alexsandra Butts PA-C 200 [facility] [place] [phone] 05/07/2023 11:00 AM EST Office Visit Psychiatry, [facility] [address] [place] [address] Shahla Lopez CRNP [address] [place] [address] 10/10/2023 10:00 AM EDT Nurse Only Ancillary [facility] [place] [address] [place] [address] Im, Nurse Annual Wellness [facility] [address] [place], [place] [address] 10/10/2023 12:00 PM EDT Office Visit General Internal Medicine [facility] [place] [address] [place] [address] Betty Muñoz MD 200 [facility] [place] [address] 01/31/2024 10:30 AM EDT Office Visit Allergy/Immunology Kaila Wellington [place] [address] [place] [address] Malgorzata Ingram PA-C 200 [facility] [place] [address] 03/21/2024 10:00 AM EDT Office Visit Sleep Disorders Ctr [facility] [address] [place] [phone] Carla Montoya, [address] [place] [address] Health Maintenance Due Date Last Done Comments Hepatitis C Screening 1968 Cologuard 02/22/1996 Fecal Occult Blood Test 02/22/1996 Sigmoidoscopy 02/22/1996 Zoster Vaccines (1 of 2) 2001 DTaP,Tdap,and Td Vaccines (1 - Tdap) 10/11/2007 10/10/2007 COVID-19 Vaccine ( - 2022- season) 2023 09/13/2021, 03/29/2021, 07/30/2020, [...] this encounter Medical Devices Implanted Type Area Art Glass Designer Device Identifier Shelf Expiration Date Model / Serial / Lot Lens Intraoc 20.0 - [id number] - [id number] Implanted:Qty: 1 on 01/10/2022 by Woodrow Merlos MD at OR [facility] Left: Eye BAUSCH & LOMB 06/03/2026 [id number] / [id number] / [id number] Lens Intraoc 20.0 - [id number] - [id number] Implanted:Qty: 1 on 01/17/2022 by Woodrow Merlos MD at OR [facility] Right: Eye BAUSCH & LOMB 07/04/2026 [id number] / [id number] / [id number] documented as of this encounter Visit Diagnoses Diagnosis Generalized anxiety disorder Panic disorder without agoraphobia documented in this encounter Advance Directives Latest Code Status on File Code Status Date Activated Date Inactivated Comments No Code 01/17/2022 12:53 PM 01/17/2022 7:09 PM This order reflects the patients wishes and were consensually agreed upon. Question Answer Comments Discussion of Advance Directives occurred with: Patient Does the patient have a Living Will? No Does the patient have Health Care Power of Professor Of Spanish? No Code Status History Code Status Date Activated Date Inactivated Comments No Code 01/10/2022 10:23 AM 01/10/2022 4:37 PM This o rder reflects the patients wishes and were consensually agreed upon. Question Answer Comments Discussion of Advance Directives occurred with: Patient Does the patient have a Living Will? No Does the patient have Health Care Power of Professor Of Spanish? No Care Teams Clothing Sales Assistant Relationship Specialty Start Date End Date Betty Muñoz MD 200 [facility] [place] [address] PCP - General Internal Medicine 01/31/21 documented as of this encounter
--- OUTSIDE RECORDS SUMMARY | 2023-05-05 09:09 | External Medical Summary | Summary of Care ---
Author Name Unknown Organization [facility] Address [address] [place] [address] Phone [phone] Care Team Providers Care Outreach Specialist Name Role Phone Betty Muñoz MD Primary Care Provider [phone] Encounter Details Date Type Department Care Team Description 03/15/2023 Telephone Pulmonary Medicine, [facility] [address] [facility] [place] [address] Carla Montoya, [address] [place] [place] [address] Allergies Active Allergy Reactions Severity Noted Date Comments Iodinated Contrast Media Rash 10/06/2009 Iodine Rash 04/17/2001 documented as of this encounter (statuses as of 03/15/2023) Medications Medication Sig Dispensed Refills Start Date [...] evening. 45 Tablet 3 06/15/2022 Active Ipratropium [place] 0.03 % Nasal Solution 2 squirts each [...] before bedtime. 120 Tablet 2 01/17/2023 Active Mirtazapine 15 MG Oral Tablet (Remeron)Indications: Generalized anxiety disorder,Panic disorder without agoraphobia,Recurrent major depressive disorder, in partial remission (HCC) Take 1 Tablet by mouth at bedtime. 30 Tablet 1 02/23/2023 Active Atorvastatin Calcium 20 MG Oral Tablet [...] for Anxiety. 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 documented as of this encounter (statuses as of 03/15/2023) Resolved Problems Problem Noted Date Resolved Date Deviated nasal septum 12/15/2019 10/03/2021 Rhinorrhea 12/15/2019 01/19/2020 Helicobacter pylori (H. pylori) infection 201503/27/2019 Overview: Treated in 11/2015 Coronary atherosclerosis of [place] coronary shantel ry 11/11/2010 02/06/2018 Old myocardial infarct 07/05/2010 1 UNILAT INGUINAL HERNIA- right 10/06/2009 ADVANCE DIRECTIVE INFORMATION 07/21/2009 Overview: Yes, Patient instructed to provide copy of advance directive for provider to review and to be scanned into Electronic Medical Record Dyslipidemia, goal LDL below 160 05/27/2008 05/13/2009 Overview: Per Lipid Taxonomy. 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 03/04/2018 Overview: ICD-10 update of inactive term Malignant neoplasm of skin of trunk 04/19/2002 03/04/2018 Overview: ICD-10 update of inactive term epidermal cyst - R eye 495 04/19/200206/2017 OTHER ACNE-3/93 04/19/2002 03/04/2018 Other atopic dermatitis 04/19/2002 12/28/19 18 Overview: ICD-10 update of inactive term Other allergic rhinitis 04/17/2001 01/19/20 20 Overview: ICD-10 update of inactive term Dyslipidemia, goal to be determined 04/28/2009 Overview: Per Lipid Taxonomy Acute [place], anterior wall 05/31/2012/27/2017 Benign neoplasm of prostate 06/2017 documented as of this encounter (statuses as of 03/15/2023) Immunizations Name Administration Dates Next Due COVID-19 [...] drink = 0.6 oz pur e alcohol) Food Insecurity Answer Date Recorded Within the past 12 months, y ou worried that your food would run out before you got money to buy more. Never true 10/04/2022 Within the past 12 months, t he food you bought just didn't last and you didn't have money to get more. Never true 10/04/2022 Sex Assigned at Date Recorded Male 09/24/2018 11:17 AM EDT Job Start Date Occupation Industry Not on file Not on file Not on file documented as of this encounter Miscellaneous Notes * Telephone Encounter - Carla Montoya DO - 03/15/2023 4:16 PM EDT Received faxed compliance report from [facility]. This is the same data ending in September of this year. I would like them to read his SD card and send us updated data. * Telephone Encounter - Colton Delarosa - 03/15/2023 8:20 AM EDT Orders in 03/14 [facility] supplies documented in this encounter Plan of Treatment Upcoming Encounters Date Type Specialty Care Team Description 04/03/2023 Telemedicine Psychiatry Lopez, PARVIZ Morales [address] [place] [address] 04/18/2023 Office Visit Dermatology Alexsandra Butts PA-C [address] [facility] [place] [phone] 05/07/2023 Office Visit Psychiatry Lopez, PARVIZ Morales [address] [facility] [place] [address] 10/10/2023 Nurse Only Ancillary Im, Nurse Annual Wellness [facility] [address] [facility] [place] [address] 10/10/2023 Office Visit Internal Medicine Betty Muñoz MD [address] [place] [address] 01/31/2024 Office Visit Allergy & Immunology Malgorzata Ingram PA-C [address] [facility] [place] [address] 03/21/2024 Office Visit Sleep Disorders Carla Montoya, DO [address] [place] [address] Health Maintenance Due Date Last Done Comments [...] this encounter Medical Devices Implanted Type Area Pallet Stone Inserter Device Identifier Shelf Expiration Date Model / Serial / Lot Lens Intraoc 20.0 - [id number] - [id number] Implanted:Qty: 1 on 01/10/2022 by Woodrow Merlos MD at OR [facility] Left: Eye BAUSCH & LOMB 06/03/2026 [id number] / [id number] / [id number] Lens Intraoc 20.0 - [id number] - [id number] Implanted:Qty: 1 on 01/17/2022 by Woodrow Merlos MD at OR [facility] Right: Eye BAUSCH & LOMB 07/04/2026 [id number] / [id number] / [id number] documented as of this encounter Advance Directives [...] the patient have Health Care Power of Production Pattern Maker? No Code Status History Code Status Date Activated Date Inactivated Comments No Code 01/10/2022 10:23 AM 01/10/2022 4:37 PM This o rder reflects the patients wishes and were consensually agreed upon. Question Answer Comments Discussion of Advance Directives occurred with: Patient Does the patient have a Living Will? No Does the patient have Health Care Power of Production Pattern Maker? No Care Teams Outreach Specialist Relationship Specialty Start Date End Date Betty Muñoz MD [address] [place] [phone] PCP - General Internal Medicine 01/31/21 documented as of this encounter
--- OUTSIDE RECORDS SUMMARY | 2023-05-05 09:09 | External Medical Summary | Summary of Care ---
Author Name Unknown Organization [facility] Address [address] [place] [address] Phone [phone] Care Team Providers Care Car Repair Supervisor Name Role Phone Betty Muñoz MD Primary Care Provider [phone] Encounter Details Date Type Department Care Team Description 03/15/2023 Telephone Pulmonary Medicine, [facility] [address] [facility] [place] [address] Carla Montoya, [address] [facility] [place] [address] Allergies Active Allergy Reactions Severity Noted Date [...] evening. 45 Tablet 3 06/15/2022 Active Ipratropium [place] 0.03 % Nasal Solution 2 squirts [...] Overview: Treated in 11/2015 Coronary atherosclerosis of [place] coronary shantel ry 11/11/2010 02/06/2018 Old myocardial [...] determined 04/28/2009 Overview: Per Lipid Taxonomy Acute [place], anterior wall 05/31/2012/27/2017 Benign neoplasm of prostate [...] encounter Miscellaneous Notes * Telephone Encounter - Colton Delarosa - 03/15/2023 8:20 AM EDT Orders in 03/14 [facility] supplies documented in this encounter Plan of Treatment Upcoming Encounters Date Type Specialty Care Team Description 04/03/2023 Telemedicine Psychiatry Lopez, PARVIZ Morales [address] [place] [address] 04/18/2023 Office Visit Dermatology Alexsandra Butts PA-C [address] [place] [phone] 05/07/2023 Office Visit Psychiatry Lopez, PARVIZ Morales [address] [place] [address] 10/10/2023 Nurse Only Ancillary Im, Nurse Annual Wellness [facility] [address] 10/10/2023 Office Visit Internal Medicine Betty Muñoz MD [address] [facility] [place] [address] 03/21/2024 Office Visit Sleep Disorders Carla Montoya, [address] [place] [address] Health Maintenance Due Date Last Done Comments Hepatitis C Screening 1969 Cologuard 02/22/1996 Fecal Occult Blood Test 02/22/1996 Sigmoidoscopy 02/22/1996 Zoster Vaccines (1 of 2) 2001 DTaP,Tdap,and Td Vaccines (1 - Tdap) 10/11/2007 10/10/2007 COVID-19 Vaccine (2022- season) 2023 09/13/2021, 03/29/2021, 07/30/2020, Additional history [...] this encounter Medical Devices Implanted Type Area Driving School Instructor Device Identifier Shelf Expiration Date Model / Serial / Lot Lens Intraoc 20.0 - [id number] - [id number] Implanted:Qty: 1 on 01/10/2022 by Woodrow Merlos MD at OR [facility] Left: Eye BAUSCH & LOMB 06/03/2026 [id number] / [id number] / [id number] Lens Intraoc 20.0 - [id number] - [id number] Implanted:Qty: 1 on 01/17/2022 by Woodrow Merlos MD at OR [facility] Right: Eye BAUSCH & LOMB 07/04/2026 [id number] / [id number] / [id number] documented as of this encounter Advance Directives [...] the patient have Health Care Power of Boom Operator? No Code Status History Code Status Date Activated Date Inactivated Comments No Code 01/10/2022 10:23 AM 01/10/2022 4:37 PM This o rder reflects the patients wishes and were consensually agreed upon. Question Answer Comments Discussion of Advance Directives occurred with: Patient Does the patient have a Living Will? No Does the patient have Health Care Power of Boom Operator? No Care Teams Car Repair Supervisor Relationship Specialty Start Date End Date Betty Muñoz MD [address] [place] [id number] PCP - General Internal Medicine 01/31/21 documented as of this encounter
--- OUTSIDE RECORDS SUMMARY | 2023-05-05 09:09 | External Medical Summary | Summary of Care ---
Author Name Unknown Organization [facility] Address [address] [place] [address] Phone [phone] Care Team Providers Care Internet Webmaster Name Role Phone Betty Muñoz MD Primary Care Provider [phone] Reason for Visit * Reason Comments Follow Up Here for 6 mo follow up. AGATHA. CPAP. Encounter Details Date Type Department Care Team Description 03/14/2023 Office Visit Sleep Disorders [facility] [place] [address] [facility] [address] Carla Montoya DO [address] [facility] [address] Obstructive sleep apnea* Allergies Active Allergy Reactions Severity Noted Date Comments Iodinated Contrast Media Rash 10/06/2009 Iodine Rash 04/17/2001 documented as of this encounter (statuses as of 03/14/2023) Medications Medication Sig Dispensed Refills Start Date [...] evening. 45 Tablet 3 06/15/2022 Active Ipratropium [place] 0.03 % Nasal Solution 2 squirts each [...] as of this encounter (statuses as of 03/14/2023) Active Problems Problem Noted Date AGATHA (obstructive [...] as of this encounter (statuses as of 03/14/2023) Resolved Problems Problem Noted Date Resolved Date Deviated nasal septum 12/15/2019 10/03/2021 Rhinorrhea 12/15/2019 01/19/2020 Helicobacter pylori (H. pylori) infection 201503/27/2019 Overview: Treated in 11/2015 Coronary atherosclerosis of [place] coronary shantel ry 11/11/2010 02/06/2018 Old myocardial [...] term epidermal cyst - R eye 4/95 04/19/200206/2017 OTHER ACNE-3/93 04/19/2002 03/04/2018 Other atopic dermatitis 04/19/2002 12/28/19 18 Overview: ICD-10 update of inactive term Other allergic rhinitis 04/17/2001 01/19/20 20 Overview: ICD-10 update of inactive term Dyslipidemia, goal to be determined 04/28/2009 Overview: Per Lipid Taxonomy Acute [place], anterior wall 05/31/20 10 12/27/2017 Benign neoplasm of prostate 06/2017 documented as of this encounter (statuses as of 03/14/2023) Immunizations Name Administration Dates Next Due COVID-19 [...] Sign Reading Time Taken Comments Blood Pressure 118/70 03/14/2023 2:59 PM EDT Pulse 40 03/14/2023 2:59 PM EDT Temperature 36.4 C (97.6 F) 03/14/2023 2:59 PM ED T Respiratory Rate 16 03/14/2023 2:59 PM EDT Oxygen Saturation 99% 03/14/2023 2:59 PM EDT Inhaled Oxygen Concentration - - Weight 71.1 kg (156 lb 12 oz) 03/14/2023 2:59 PM EDT Height 174 cm (5' 8.5") 03/14/2023 2:59 PM EDT Body Mass Index 23.49 03/14/2023 2:59 PM EDT documented in this encounter Progress Notes * Carla Montoya, - 03/14/2023 2:57 PM EDT Sleep Medicine Follow-Up HISTORY: Timothy Sorensen is a 73 year old male for follow up of mild AGATHA. Initially seen 04/25/22 with snoring, witnessed apneas, nocturia, non-refreshing sleep, daytime fatigue and EDS. Hx insomnia improved with Remeron. [place] 11. Hx mild HOCM, anxiety/depression, GERD,mixed rhinitis. HST 05/10/22: JOCELYN 10.2, supine JOCELYN 32, SpO2 pat 85%, time <89% 4.1 min. Started CPAP 5-20 cmH2O. Adjusted to 5-15 then to 5-12 cwp due to aerophagia. Last seen 10/17/22. Belching less prominent since adjusting settings as above. Sleepiness improved; [place] 5. Continued CPAP 5-12 cwp. Subjective PAP adherence: good Sleep refreshing on PAP: yes (some other health issues cause morning fogginess) Snoring on PAP: no Daytime sleepiness: no Drowsy driving: none Mask leak: no Dry nose or dry mouth: no Use humidifier? Yes, adjusted. Aerophagia: seems resolved Recent weight change: no [place] Sleepiness Scale: 2 [place] Sleepiness Scale Question 03/14/2023 2:58 PM EDT - Filed by Mandy Bocanegra LPN What is the chance you will doze off in the following situation? Sitting and reading No chance of dozing Watching TV Moderate chance of dozing Sitting inactive in a public place, such as a theater or meeting No chance of dozing As a passenger in a car for an hour without a break No chance of dozing Lying down to rest in the afternoon when circumstances permit No chance of dozing When sitting and talking to someone No chance of dozing When sitting quietly after lunch without alcohol No chance of dozing In a car, while stopped for a few minutes in traffic No chance of dozing Score (range: 0 - 24) 2 CPAP Compliance: Most recent data available in [facility] ends 09/14/22, and was reviewed at last appt. No download since his last setting adjustment. Equipment: DME Provider is [facility] Uses a AirSense 10 w/ SD card. Denies change in PMH or PSH in the interim of care. Patient Active Problem List Diagnosis Code DYSLIPIDEMIA, [...] (HCC) F33.41 AGATHA (obstructive sleep apnea) G47.33 Outpatient Medications Marked as Taking for the 03/14/23 encounter (Office Visit) with Carla Montoya, DO Medication Sig LORazepam 0.5 MG Oral Tablet (Ativan) Take 1 Tablet by mouth daily as needed for Anxiety. Atorvastatin Calcium 20 MG Oral Tablet (Lipitor) take 1 tablet by mouth once daily Mometasone Furoate 50 MCG/ACT Nasal Suspension instill 2 sprays into each nostril once daily if needed for allergies Mirtazapine 15 MG Oral Tablet (Remeron) Take 1 Tablet by mouth at bedtime. busPIRone HCl 10 MG Oral Tablet (Buspar) Take 1 Tablet by mouth in the morning and 1 Tablet at noonand 1 Tablet in the evening and 1 Tablet before bedtime. CPAP every night at bedtime. Zoster Vac Recomb Adjuvanted 50 MCG/0.5ML Intramuscular Suspension Reconstituted (Shingrix) Inject 0.5 mL into a large muscle now and repeat dose in 60 to 180 days Ipratropium [place] 0.03 % Nasal Solution 2 squirts each nostril 2-4 times daily. May precede with nasal saline Metoprolol Succinate ER 25 MG Oral Tablet Extended Release 24 Hour (toPROL XL) Take 0.5 Tablets by mouth every evening. Magnesium Oxide 400 MG Oral Tablet Take 1 Tab by mouth daily. St 01/31/2021 Vitamin D 25 MCG (1000 UT) Oral Tablet Take by mouth. sterile water for irrigation SOLN 240 mL with hypertonic saline rinse PACK 2 Packet 2 Packets 2 times a day. ASPIRIN EC 81 MG PO TBEC Take 1 Tablet by mouth in the morning. VITAMIN B COMPLEX PO CAPS 1 cap daily PHYSICAL EXAM: Filed Vitals: 03/14/23 1459 BP: 118/70 Pulse: 40 Resp: 16 Temp: 36.4 C (97.6 F) TempSrc: Tympanic SpO2: 99% Weight: 71.1 kg (156 lb 12 oz) Height: 1.74 m (5' 8.5") General: alert, no acute distress Head: NC/AT Lungs: normal respiratory effort Neuro: speech clear and appropriate, hard of hearing ASSESSMENT/PLAN: Obstructive sleep apnea - excellent reported adherence; encourage continued use of CPAP with all sleep - excellent subjective efficacy of therapy; continue PAP at current setting 5-12 cmH2O, pending receipt of updated compliance report (requested through DME). - DME: [facility] - Routine cleaning and change of supplies as needed. - Continue to avoid driving when feeling sleepy/drowsy. Follow-up with Sleep Medicine in 1 year. Carla Montoya DO documented in this encounter Nursing Notes * Mandy Bocanegra LPN - 03/14/2023 3:01 PM EDT Chief Complaint Patient presents with Follow Up Here for 6 mo follow up. AGATHA. CPAP. DME: [facility]. [place] Sleepiness Scale Question 03/14/2023 2:58 PM EDT - Filed by Mandy Bocanegra LPN What is the chance you will doze off in the following situation? Sitting and reading No chance of dozing Watching TV Moderate chance of dozing Sitting inactive in a public place, such as a theater or meeting No chance of dozing As a passenger in a car for an hour without a break No chance of dozing Lying down to rest in the afternoon when circumstances permit No chance of dozing When sitting and talking to someone No chance of dozing When sitting quietly after lunch without alcohol No chance of dozing In a car, while stopped for a few minutes in traffic No chance of dozing Score (range: 0 - 24) 2 documented in this encounter Plan of Treatment Upcoming Encounters Date Type Specialty Care Team Description 04/03/2023 Telemedicine Psychiatry Lopez, PARVIZ Morales [address] [place] [address] 04/18/2023 Office Visit Dermatology Alexsandra Butts PA-C [address] [place] [phone] 05/07/2023 Office Visit Psychiatry Lopez, PARVIZ Morales [address] [place] [address] 10/10/2023 Nurse Only Ancillary Im, Nurse Annual Wellness [facility] [address] [place] [address] 10/10/2023 Office Visit Internal Medicine Betty Muñoz MD [address] [place] [address] 03/21/2024 Office Visit Sleep Disorders Carla Montoya, DO [address] [place] [address] Health Maintenance Due Date Last Done Comments [...] this encounter Medical Devices Implanted Type Area Python Consultant Device Identifier Shelf Expiration Date Model / Serial / Lot Lens Intraoc 20.0 - [id number] - [id number] Implanted:Qty: 1 on 01/10/2022 by Woodrow Merlos MD at OR [facility] Left: Eye BAUSCH [employer] LOMB 06/03/2026 [id number] / [id number] / [id number] Lens Intraoc 20.0 - [id number] - [id number] Implanted:Qty: 1 on 01/17/2022 by Woodrow Merlos MD at OR [facility] Right: Eye BAUSCH & LOMB 07/04/2026 [id number] / [id number] / [id number] documented as of this encounter Visit Diagnoses Diagnosis Obstructive sleep apnea- Primary Obstructive sleep apnea (adult) (pediatric) documented in this encounter Advance Directives Latest Code Status on File Code Status Date Activated Date Inactivated Comments No Code 01/17/2022 12:53 PM 01/17/2022 7:09 PM This order reflects the patients wishes and were consensually agreed upon. Question Answer Comments Discussion of Advance Directives occurred with: Patient Does the patient have a Living Will? No Does the patient have Health Care Power of Lens Cutter? No Code Status History Code Status Date Activated Date Inactivated Comments No Code 01/10/2022 10:23 AM 01/10/2022 4:37 PM This o rder reflects the patients wishes and were consensually agreed upon. Question Answer Comments Discussion of Advance Directives occurred with: Patient Does the patient have a Living Will? No Does the patient have Health Care Power of Lens Cutter? No Care Teams Internet Webmaster Relationship Specialty Start Date End Date Betty Muñoz MD [address] [place] [address], [place] [address] PCP - General Internal Medicine 8/30/21 documented as of this encounter
--- OUTSIDE RECORDS SUMMARY | 2023-05-05 09:09 | External Medical Summary | Summary of Care ---
Author Name Unknown Organization [facility] Address [address] [place] [address] Phone [phone] Care Team Providers Care Catalytic Case Operator Name Role Phone Betty Muñoz MD Primary Care Provider [phone] Reason for Referral * Precert (Within 10 days (routine)) - Authorized Specialty Diagnoses / Procedures Referred By Contac t Referred To Contact Cardiac Studies Diagnoses Apical variant hypertrophic cardiomyopathy (HCC) Procedures ECHO, COMPLETE (2D), TRANS-THORACIC Audrey Su CRNP [address] [place] [address] Referral ID Status Reason Start Date Expiration Date V isits Requested Visits Authorized [id number] Authorized Precert 11/05/2023 999 999 Reason for Visit * Reason Comments Follow Up Encounter Details Date Type Department Care Team Description 03/08/2023 Office Visit Cardiology, [facility] [address] [place] [address] Audrey Su CRNP [address] [place] [address] Apical variant hypertrophic cardiomyopathy (HCC)*; DYSLIPIDEMIA, GOAL LDL BELOW 100 Allergies Active Allergy Reactions Severity Noted Date Comments Iodinated Contrast Media Rash 10/06/2009 Iodine Rash 04/17/2001 documented as of this encounter (statuses as of 03/08/2023) Medications Medication Sig Dispensed Refills Start Date [...] evening. 45 Tablet 3 06/15/2022 Active Ipratropium [place] 0.03 % Nasal Solution 2 squirts each [...] before bedtime. 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 30 Tablet 0 02/12/2023 Active Mirtazapine 15 MG Oral Tablet (Remeron)Indications: [...] for allergies 51 g 1 03/05/2023 Active documented as of this encounter (statuses as of 03/08/2023) Active Problems Problem Noted Date AGATHA (obstructive [...] as of this encounter (statuses as of 03/08/2023) Resolved Problems Problem Noted Date Resolved Date Deviated nasal septum 12/15/2019 10/03/2021 Rhinorrhea 12/15/2019 01/19/2020 Helicobacter pylori (H. 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 documented as of this encounter (statuses as of 03/08/2023) Immunizations Name Administration Dates Next Due COVID-19 [...] Sign Reading Time Taken Comments Blood Pressure 136/74 03/08/2023 4:01 PM EDT Pulse 60 03/08/2023 3:20 PM EDT Temperature - - Respiratory Rate 14 03/08/2023 3:20 PM EDT Oxygen Saturation 99% 03/08/2023 3:20 PM EDT Inhaled Oxygen Concentration - - Weight 70.3 kg (155 lb) 03/08/2023 3:20 PM EDT Height - - Body Mass Index 23.22 10/17/2022 9:48 AM EDT documented in this encounter Progress Notes * PARVIZ Sewell - 03/08/2023 3:30 PM EDT 03/08/2023 Cardiology Follow Up Primary Water Reuse Program Manager: Dr. 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 Abnormal EKG. Hyperlipidemia. Familial history of coronary disease without personal history of coronary disease. Prior diagnostic cardiac catheterization without significant atherosclerosis 2000. HPI: Timothy Sorensen Jr. is a 73 year old male presents for routine cardiology follow up. Last seen in our office by Dr. Odell on 02/24/22 for routine follow up, feeling well at that time from a cardiac perspective. He was undergoing treatment at that time with his PCP for acute anxiety with medication titrations. He follows with Ella Lopez and is currently undergoing some medication adjustments for anxiety. Presents today feeling well. Offers no cardiac questions or concerns. Denies any change or decline in functional capacity. BP controlled today Reports compliance on all medications with no untoward effects REVIEW OF SYSTEMS: See HPI for pertinent positives. All others negative other than those noted in the HPI. CONSTITUTIONAL: No change in weight, No weakness, No fatigue and No fevers, No sweats or chills. PULMONARY: No cough, sputum, or hemoptysis, No wheezing, No shortness or breath and No recent change in breathing. CARDIOVASCULAR: No chest pain, No dyspnea on exertion, No edema, No palpitations and No syncope. GASTROINTESTINAL: No abdominal pain, No change in bowel habits, No significant heartburn, No nausea, No vomiting, No diarrhea, No constipation, No blood in stools or black tarry stools. No dysphagia. HEMATOLOGIC: No abnormal bleeding and No bruising. NEUROLOGICAL: Normal balance, No headaches and No weakness. Review of patient's allergies indicates: Allergen Reactions Iodinated Contrast Media Rash Iodine Rash Current Outpatient Medications Medication Sig Dispense Refill [...] mouth every evening. 45 Tablet 3 Ipratropium [place] 0.03 % Nasal Solution 2 squirts each nostril 2-4 times daily. May precede with nasal saline 90 mL 3 CPAP every night at bedtime. busPIRone HCl 10 MG Oral Tablet (Buspar) Take 1 Tablet by mouth in the morning and 1 Tablet at noonand 1 Tablet in the evening and 1 Tablet before bedtime. 120 Tablet 2 LORazepam 0.5 MG Oral Tablet (Ativan) Take 1 Tablet by mouth daily as needed for Anxiety. 30 Tablet0 Mirtazapine 15 MG Oral Tablet (Remeron) Take 1 Tablet by mouth at bedtime. 30 Tablet 1 Atorvastatin Calcium 20 MG Oral Tablet (Lipitor) take 1 tablet by mouth once daily 90 Tablet 1 Mometasone Furoate 50 MCG/ACT Nasal Suspension instill 2 sprays into each nostril once daily if needed for allergies 51 g 1 Zoster Vac Recomb Adjuvanted 50 MCG/0.5ML Intramuscular Suspension Reconstituted (Shingrix) Inject 0.5 mL into a large muscle now and repeat dose in 60 to 180 days 1 Each 1 No current facility-administered medications for this visit. 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 for 36 years. Social Determinants of Health Food Insecurity: No Food Insecurity Worried About Running Out of Food in the Last Year: Never true Ran Out of Food in the Last Year: Never true OBJECTIVE/PHYSICAL EXAMINATION: BP 136/74 | Pulse 60 | Resp 14 | Wt 70.3 kg (155 lb) | SpO2 99% | BMI 23.22 kg/m | BSA 1.84 m General: No acute distress. A+Ox3. HEENT: Normocephalic. Atraumatic. PERRL. EOMI. Conjunctiva and sclera clear. NECK: No carotid bruits. No JVD. Carotid upstrokes are brisk. Heart: RRR. S1 and S2 noted. No murmur. No rubs or gallops. PMI non displaced. Lungs: Clear to auscultation. No wheezes.No rhonchi. No rales. Abdomen: Normal bowel sounds. Soft. Nontender. No masses or organomegaly. No abdominal bruits. Extremities: No edema. No clubbing or cyanosis. Pulses: radial=2/4, posterior tibial=2/4, dorsalis pedis = 2/4. NEURO: No focal deficits. PSYCH: Appropriate affect and insight. DATA Labs & Imaging Reviewed Below: EKG performed , July 05, 2021 , and reviewed personally : Sinus bradycardia 54 beats per minute Chronic deep T-wave inversion 2 3 AVF, V3 through V6 Not significantly changed from prior study Stress echocardiogram November 26, 2019 The stress echo is negative for inducible ischemia. The examination is adequate to evaluate the referral indication. Exercise capacity is above average, 10 met level achieved There is a mildly attenuated heart rate response to exercise secondary to beta- rosi therapy Dyspnea was noted with stress. Equivocal 1-2mm upsloping ST-segment depression is noted in the inferior leads. Diagnostic sensitivity of stress EKG limited by baseline ST segment abnormalities There is an abnormal relaxation pattern to the apical septum The regional left ventricular wall motion is otherwise normal. The left ventricular cavity size is normal. There is asymmetric left ventricular hypertrophy. The asymmetric hypertrophy involves the apex. The qualitative LV ejection fraction is 55-59% (normal). The left ventricular diastolic function is moderately abnormal (grade II). Mild mitral regurgitation is present. Lipid Panel Results: Lipid Panel Results: Results for orders placed or performed in visit on 05/19/11 LIPID PANEL Result Value Ref Range HOURS FASTING 12 hours Triglycerides 86 <200 mg/dL Cholesterol 160 <200 mg/dL HDL Cholesterol 68 (H) 40 - 59 mg/dL Cholesterol-HDL Ratio 2.4 LDL Cholesterol 75 0 - 129 mg/dL Results for orders placed or performed in visit on 01/31/21 LIPID PANEL WITH DIRECT LDL IF TG IS HIGH Result Value Ref Range Triglycerides 154 <=174 mg/dL Cholesterol 185 <200 mg/dL HDL Cholesterol 80 >39 mg/dL Non-HDL Cholesterol 105 <=159 mg/dL LDL Cholesterol 74 <=129 mg/dL ZIO Patch event monitor September 23, 2020 CONCLUSIONS: Patient had a min HR of 42 bpm, max HR of 176 bpm, and avg HR of 58 bpm. Predominant underlying rhythm was Sinus Rhythm. Some episodes of Supraventricular Tachycardia conducted with possible aberrancy. 7 Supraventricular Tachycardia runs occurred, the run with the fastest interval lasting 11 beats with a max rate of 176 bpm (avg 154 bpm); the run with the fastest interval was also the longest. Isolated SVEs were rare (<1.0%), SVE Couplets were rare (<1.0%), and SVE Triplets were rare (<1.0%). Isolated VEs were rare (<1.0%, 296), VE Couplets were rare (<1.0%, 7), and VE Triplets were rare (<1.0%, 1). No sustained arrhythmias. Rare supraventricular ectopy including short salvos PSVT. Symptoms correlated with normal sinusrhythm and sinus rhythm with ectopy Cardiac MRI September 08, 2020 1. Cardiac MRI findings of normal biventricular systolic function. There is mild atypical intermediate enhancement noted in the mid septal and anterior wall and apical wall segments. There is asymmetric left ventricular hypertrophy present in the distal apical segments. These findings are suggestive of apical variant hypertrophic cardiomyopathy. Total scar as percent of total LV mass: 9.7%. 2. The left ventricular systolic function is normal. The left ventricular cavity size is normal. There is asymmetric left ventricular hypertrophy present in the distal apical segments. The calculatedLV ejection fraction is 55%. 3. The right ventricular systolic function is normal. The right ventricle is normal in size. The calculated RV ejection fraction is 61%. ASSESSMENT/PLAN: 73 year old year old male 1. Apical variant hypertrophic cardiomyopathy (HCC) - Doing well from a cardiac standpoint. EKG obtained showing no acute changes. -Denies any change or decrease in his functional capacity. -Continue toprol xl 12.5mg QD -BP well controlled. -Will repeat echo prior to next routine appt to assess overall structure, function and for any progression of valvular disease. - ECHO, COMPLETE (2D), TRANS-THORACIC; Future 2. DYSLIPIDEMIA, GOAL LDL BELOW 100 -last labs stable. Continue Atorvastatin 20mg QD and ASA 81mg QD DISPOSITION: Follow up 1 year or if symptoms worsen/fail to improve. All questions were answered to the patients satisfaction. Patient advised to report to ED with any and all emergencies. The patient agrees to the above plan and will call with additional questions or concerns. PAR[facility], [address] [address] I spent a total of 42 minutes on the date of service in preparation, delivery, and documentation ofthe care provided to Timothy Sorensen Jr. excluding any time spent in the performance of separately billed services. This chart was completed in part utilizing [employer] Speech Voice Recognition Software. Grammatical errors, random word insertions, pronoun errors, and incomplete sentences are an occasional consequence of this system due to software limitations, ambient noise, and hardware issues. Any formal questions or concerns about the content, text, or information contained within the body of this dictation should be directly addressed to the provider for clarification. documented in this encounter Nursing Notes * Inez Mcmullen CMA - 03/08/2023 3:17 PM EDT Examination Room: 7 Name: Timothy Sorensen Jr. Date of : (1950). Reason for Visit: 1 yr f/u Interim Hospitalization(s): none Problems/Concerns: denies Chest Pain/SOB: denies [facility] Discussed: Not applicable [facility] is a way you can talk to your provider online through e-mail. Would you like to sign up? I can activate it for you? ALREADY ACTIVE Patient was instructed to not get up on the exam table until directed and assisted by their provider; patient is to remain seated in the chair/ wheelchair/ exam table for fall prevention and safety reasons. Patient is aware to have assistance to step down off exam table with personnel. Patient voiced full comprehension of instructions. documented in this encounter Miscellaneous Notes * Addendum Note - Inez Mcmullen CMA - 03/08/2023 4:15 PM EDTAddended by: INEZ MCMULLEN on: 03/08/2023 04:15 PM Modules accepted: Orders documented in this encounter Plan of Treatment Upcoming Encounters Date Type Specialty Care Team Description 03/12/2023 Office Visit Psychiatry Lopez, PARVIZ Morales [address] [facility] [place] [address] 03/14/2023 Office Visit Sleep Disorders Carla Montoya, [address] [place] [address] 04/18/2023 Office Visit Dermatology Alexsandra Butts PA-C [address] [place] [id number] 10/10/2023 Nurse Only Ancillary Im, Nurse [facility] [place] [address] [place] [address] 10/10/2023 Office Visit Internal Medicine Betty Muñoz MD [address] [facility] [place] [address] Scheduled Orders Name Type Priority Associated Diagnoses Orde r Schedule ECHO, COMPLETE (2D), TRANS-THORACIC Echocardiology Routine Apical variant hypertrophic cardiomyopathy (HCC) Expected: 11/05/2023 (Approximate), Expires: 09/06/2024 EKG COMPLETE (TRACING AND INTERP) EKG Routine Apical variant hypertrophic cardiomyopathy (HCC) DYSLIPIDEMIA, GOAL LDL BELOW 100 Ordered: 03/08/2023 Health Maintenance Due Date Last Done Comments [...] this encounter Medical Devices Implanted Type Area Faa Certified Powerplant Mechanic Device Identifier Shelf Expiration Date Model / Serial / Lot Lens Intraoc 20.0 - [id number] - [id number] Implanted:Qty: 1 on 01/10/2022 by Woodrow Merlos MD at OR [facility] Left: Eye [employer] 06/03/2026 [id number] / [id number] / [id number] Lens Intraoc 20.0 - [id number] - [id number] Implanted:Qty: 1 on 01/17/2022 by Woodrow Merlos MD at OR [facility] Right: Eye [employer] 07/04/2026 [id number] / [id number] / [id number] documented as of this encounter Visit Diagnoses Diagnosis Apical variant hypertrophic cardiomyopathy (HCC)- Primary Other primary cardiomyopathies DYSLIPIDEMIA, GOAL LDL BELOW 100 Other and unspecified hyperlipidemia documented in this encounter Advance Directives Latest Code Status on File Code Status Date Activated Date Inactivated Comments No Code 01/17/2022 12:53 PM 01/17/2022 7:09 PM This order reflects the patients wishes and were consensually agreed upon. Question Answer Comments Discussion of Advance Directives occurred with: Patient Does the patient have a Living Will? No Does the patient have Health Care Power of Dental Surgeon? No Code Status History Code Status Date Activated Date Inactivated Comments No Code 01/10/2022 10:23 AM 01/10/2022 4:37 PM This o rder reflects the patients wishes and were consensually agreed upon. Question Answer Comments Discussion of Advance Directives occurred with: Patient Does the patient have a Living Will? No Does the patient have Health Care Power of Dental Surgeon? No Care Teams Catalytic Case Operator Relationship Specialty Start Date End Date Betty Muñoz MD [address] [place] [address] PCP - General Internal Medicine 01/31/21 documented as of this encounter"
--- OUTSIDE RECORDS SUMMARY | 2023-05-05 09:09 | External Medical Summary | Summary of Care ---
Author Name Unknown Organization [facility] Address [address] [place] [address] Phone [phone] Care Team Providers Care Physician Assistant Primary Care Name Role Phone Betty Muñoz MD Primary Care Provider [phone] Reason for Visit * Reason Comments Medication Management Follow Up Encounter Details Date Type Department Care Team Description 03/12/2023 Office Visit Psychiatry, [facility] [address] [place] [address] Shahla Lopez CRNP [address] [place] [address] Generalized anxiety disorder*; Panic disorder without agoraphobia; Recurrent major depressive disorder, in partial remission (HCC) Allergies Active Allergy Reactions Severity Noted Date Comments Iodinated Contrast Media Rash 10/06/2009 Iodine Rash 04/17/2001 documented as of this encounter (statuses as of 03/13/2023) Medications Medication Sig Dispensed Refills Start Date [...] evening. 45 Tablet 3 06/15/2022 Active Ipratropium Ringold 0.03 % Nasal Solution 2 squirts each [...] 01/17/2023 Active Mirtazapine 15 MG Oral Tablet (Remeron)Indications [...] for Anxiety. 30 Tablet 0 03/12/2023 Active LORazepam 0.5 MG Oral Tablet (Ativan)Indications: Generalized anxiety disorder,Panic disorder without agoraphobia Take 1 Tablet by mouth daily as needed for Anxiety. 30 Tablet 0 02/12/2023 3 Discontinue d(Refill) documented as of this encounter (statuses as of 03/13/2023) Active Problems Problem Noted Date AGATHA (obstructive [...] as of this encounter (statuses as of 03/13/2023) Resolved Problems Problem Noted Date Resolved Date Deviated nasal septum 12/15/2019 10/03/2021 Rhinorrhea 12/15/2019 01/19/2020 Helicobacter pylori (H. pylori) infection 201503/27/2019 Overview: Treated in 11/2015 Coronary atherosclerosis of ak chin coronary shantel ry 11/11/2010 02/06/2018 Old myocardial [...] inactive term epidermal cyst - R eye 04/19/200206/2017 OTHER ACNE-04/19/2002 03/04/2018 Other atopic dermatitis 04/19/2002 12/28/19 18 Overview: ICD-10 update of inactive term Other allergic rhinitis 04/17/2001 01/19/20 20 Overview: ICD-10 update of inactive term Dyslipidemia, goal to be determined 04/28/2009 Overview: Per Lipid Taxonomy Acute ND, anterior wall 05/31/20 10 12/27/2017 Benign neoplasm of prostate 06/2017 documented as of this encounter (statuses as of 03/13/2023) Immunizations Name Administration Dates Next Due COVID-19 [...] as of this encounter Progress Notes * PARVIZ Perez - 03/12/2023 4:28 PM EDT OUTPATIENT PSYCHIATRY DIVISION OF PSYCHIATRY [facility] Office [address] [place] [id number] MEDICATION MANAGEMENT & PSYCHOTHERAPY RETURN VISIT NOTE Name: Timothy Sorensen Jr. : 1950 Date Seen: 03/12/2023 LOCATION FROM WHICH SERVICE IS DELIVERED [facility] PATIENT'S CURRENT PHYSICAL LOCATION [facility] The patient was seen and interviewed, and available records and data were reviewed today. SUBJECTIVE: Timothy Sorensen Jr. is a 73 year old male presenting for follow-up of anxiety and depression. Timothy Sorensen Jr. is accompanied by for this appointment. CC: Medication management and psychotherapy follow up treatment HISTORY OF PRESENT ILLNESS: *As noted by Odalis Haddad, PhD on 11/29/21: Pt described that he has been experiencing anxiety/nervousness and bouts of depression he thinks that started at the beginning of the pandemic. He is fully vaccinated and has not gotten COVID-19 as far as he is aware. The depression is minor but the anxiety is more primary. Not present when he is engaged in an activity but ismore common when he is sitting and thinking. 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 Alsohas some "OCD tendencies" and ocular migraines that have been worse recently. He indicated that he will sometimes get confused with or without a migraine present- like not being able to comprehend what his is saying or not being able to spell words. The sun can trigger these occular migraines. As noted by Odalis Haddad, PhD on 12/01/21: Pt presents complaining of ocular migraines that spread from one eye to the other. He has blurry foggy, vision almost like cataracts. These last for a minimum of an hour. He will also experience confusion when these occur. Sun can trigger these. He reported that they are more frequent recently. He has cataract testing scheduled for early December. Pt is seeing a neurologist who recommended a medication for his ocular migraine but pt thought the potential side effects with this medication could be worse than his symptoms so he has not taken anything. He has been experiencing anxiety since COVID-19 started. He also had to put his dog down around this same time. He described anxiety as experiencing a flushing sensation that is unpleasant. This feeling will sometimes come out of the blue. He reported that he also feels very tried all the time. He never feels as good as he should. He indicated that he is also experiencing some depression- he thinks this started first- recurrent episodes (mostly in the winter). The anxiety is more recent. He indicated that his symptoms include feeling tired, loss of energy, and loss of appetite. He recently started seeing pet feeder for unintended weight loss. These flushing episodes have gotten more frequent. In the morning, he will usuallyfeel worse and it gets better as the day goes on. Never treated for anxiety or depression in the past. Pt also described a history of OCD tendencies- cleanliness and liking things in order. He denied significant impairment but his symptoms have increased in the last few years. He reported that physical activity and being engaged in activity can make his anxiety go away. Describes that one negative thought will bring up another and so on when he feels anxious. To manage this acute anxiety, he will hold his thumb which make him feel better. CURRENT PSYCHIATRIC PROVIDERS/SERVICES: None - trying to find new therapy provider MEDICATION SIDE EFFECTS/ADHERENCE: Negative side effects from current prescribed psychotropic medications: nausea Medication adherence: good PREVIOUS PSYCHOTROPIC MEDICATION TRIALS: Lexapro Zoloft Remeron Hydroxyzine Effexor Paxil Trazodone - effective, changed when remeron restarted RELEVANT PSYCHIATRIC, MEDICAL, FAMILY OR SOCIAL HISTORY/UPDATE: Current living situation: living with Marital status: Children: 0 Childhood/raised by: mother was single parent, as pt's father when pt was 9 years; his mother always made sure he had what he needed Siblings: 1 younger sister and 1 older sister History of past or current CYS involvement: no History of homelessness/mcc living? 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 There is no height or weight on file to calculate BMI. No height and weight on file for this encounter. Weight at last 3 appointments: Wt Readings from Last 3 Encounters: 03/08/23 70.3 kg (155 lb) 01/30/23 70.4 kg (155 lb 4.8 oz) 10/17/22 69.4 kg (153 lb) LABORATORY RESULTS: No results found for this or any previous visit (from the past 1344 hour(s)). REVIEW OF SYSTEMS: unremarkable MENTAL STATUS EVALUATION: General Appearance: appropriately dressed, appropriately groomed, and good eye contact Attitude/Behavior: cooperative, open and friendly, engaged Motor Behavior/Muscle Strength & Tone/Gait & Station: no abnormalities noted Speech: normal volume, tone Mood: anxious - somewhat improved from last appt Affect: mood-congruent Thought Process: linear Thought Content/Perceptions: denies suicidal ideations, homicidal ideations, auditory hallucinations, visual hallucinations, delusions, impulsivity to act out or preoccupation with violence; Patient does not appear to be internally preoccupied. No evidence of illusions, depersonalization, derealization, or dissociation. Attention span/concentration as evidenced by: ability to sustain attention to examiner - good Orientation: Oriented to person, place, time, and situation Abstract Reasoning: stable Recent memory as evidenced by recall of recent circumstances: good Remote memory as evidenced by recall of remote life events: intact Language as evidenced by ability to repeat phrase and name object: intact Estimated Intelligence & Fund of Knowledge: Normal Insight: fair Judgement: fair Impulse Control: fair [place] Suicide Severity Rating Scale Results 03/12/2023 17:03 [place] SUICIDE SEVERITY RATING SCALE (C-SSRS) Have you wished you were or wished you could go to sleep and not wake up? (In the Past Month or Since Last Visit) No Have you had any actual thoughts of killing yourself? (In the Past Month or Since Last Visit) No Have you been thinking about how you might do this? (In the Past Month or Since Last Visit) No Have you had thoughts and had some intention of acting on them? (In the Past Month or Since Last Visit) No Have you started to work out or worked out the details of how to kill yourself? Do you intend to carry out this plan? (In the Past Month or Since Last Visit) No Have you ever done anything, started to do anything, or prepared to do anything to end your life? (Lifetime) No Was this within the past 3 months? No Level of Risk No Risk Identified Risk Factors: history of depression, anxiety and age Protective Factors: access to appropriate services, history of being able to cope with stressors without engaging in self-harm, social support, family, supervision and or monitoring available, identifies reasons for living, has future plans, hopeful attitude and or beliefs and cultural and spiritism beliefs that discourage suicide and support hopefulness Based on these risk and protective factors, this patient's safety risk is assessed to be minimal atthis time. Outpatient Adult Psychiatry Treatment Plan Treatment plan was developed on 03/12/23, treatment will continue to focus on goals below; Treatmentupdate will occur when clinically indicated or by 09/11/23. Patient's goals captured in patient's words: "Want to get anxiety under control." Crisis Planning: What I can do if I ever experience a crisis (much worse symptoms, severe distress or thoughts of self-harm): Journal/Writing, Art/Music, Relaxation/Breathing exercises/Yoga and Talking to loved one or friend or trusted person People I can call in the event of a crisis: Spouse/partner/significant other Additional resources I can utilize if the previous steps are ineffective (e.g: ED, hotlines): Suicide and Crisis Lifeline - 988 and [place] access to crisis numbers Patient/Family Received Copy of Treatment Plan: Patient has access to [employer] Signature Obtained on Treatment Plan: No Expected family or significant other involvement: Participate in visits, Offer Support and Crisis Support Patient strengths and facilitating factors to care:Recognizes need for change, Seeking help, Goal Oriented, Attempting to realize ones potential, Manages multiple demands in life, Has a purpose in life, Has hobbies, Good support system, Cultural/spiritual/spiritism and community involvement, Accessto housing, Financial stability, Cooperative and Able to care for own personal hygiene Patient Identified Needs/Goals Interventions/Type of Service Duration of Treatment Frequency of Treatment Objective/ Discharge Criteria Problem/Need1: Medication Management Medication Management 2 year Biweekly Achieved maintenance treatment phase at full therapeutic dosage for 6-12 months TREATMENT PROGRESS/UPDATE, ASSESSMENT, FORMULATION, AND PLAN: Timothy Sorensen Jr. is a 72 year old male with presenting symptoms of Major Depressive disorder, recurrent, in partial remission, Generalized Anxiety Disorder, and Panic disorder based on above noted report. Genna was initially anxious in the appt, but gradually was able to become more calm. He acknowledges depression is something he has experienced in the past, but did not recognize it for what it was. He has been struggling more with anxiety and panic over the past couple years, with symptomsbecoming more intense gradually. He had attempted to take Lexapro as prescribed by PCP, but he did not have a good reaction to the medication and it was discontinued. Due to his concern with sensitivity to medications, he was started on Zoloft 12.5 mg approx one week ago. He has tolerated this medication fairly well, but has been taking it at bedtime, which seems to have disrupted his sleep. Suggested increasing dose to 25 mg and to take the medication in the morning. Pt is in agreement. Suggested hydroxyzine 10 mg TID PRN for anxiety/panic attacks (15 tablets). After discussion and pt consideration, he was in favor of this prescription. Pt will continue with individual therapy. I will follow up in 3 weeks with possible consideration of increasing Zoloft as needed for symptom management. 03/08/22: Genna and his report no improvement with increased dose of Zoloft. In fact, Pt has felt more unsettled on the medication, stating it is similar to how he felt on Lexapro. Due to ineffectiveness of 2 SSRI trials, discussed trail of Remeron 15 mg at bedtime. This medication can help with appetite and sleep support, as well as, targeting anxiety symptoms and depression. Reviewed side effects and symptom targets. Pt decided he would like to try Remeron. Zoloft to be stopped, as he isonly on 25 mg, he can stop without taper. Discussed transient withdrawal effects of Zoloft. Encouraged use of hydroxyzine for management of moderate to severe anxiety. 03/17/22: Genna has responded well to Remeron 15 mg at bedtime. Anxiety and depressive symptoms are improved. No panic attacks since starting medication. Sleep is improved. No medication changes to be made at this time. We will follow up in one month and titrate Remeron if necessary. He has not needed to utilize hydroxyzine. 04/12/22: Although Remeron has been helpful in reducing anxiety, depression and panic, Genna continues to experience disruptive fatigue and drowsiness into the day. It is probable this is related to medication. After discussion regarding treatment options, decision was made to start Effexor XR 37.5mg in the morning and continue Remeron 15 mg at bedtime. If Effexor is well tolerated, correction plan will be to taper Remeron and titrate Effexor XR to maintenance dose for symptom management. Hydroxyzine will remain prescribed, but pt has not needed to use this medication. 05/03/22: As Genna did not have adequate trial of Effexor XR 37.5 mg daily prior to becoming sick with flu and stopping the medication, recommendation is to restart Effexor XR 37.5 mg for two weeks,and if successful and well tolerated, increase daily dose to 75 mg daily on week three. If Effexor is not tolerated, pt is to reach out and alternative medication (possibly Pristiq) will be discussed. Remeron 15 mg at bedtime will continue with plan to taper for discontinuation when alternative effective medication is at stable dose. 05/31/22: Increase Effexor XR to 75 mg daily, as lower dose was well tolerated, and anxiety level remains high. Continue Remeron 15 mg at bedtime. One medication change will be made at a time. Deferred completing the MMSE today due to his high level of anxiety. I am concerned his under treated anxiety is impacting his cognitive functioning. Concern regarding his poor word finding and the sense that he is so easily confused about medications. Confusion is not as prevalent when he is discussing topics he is familiar with, such as his music and the care of his mother. Introduced the option of adding Buspar. Pt and his were encouraged to consider this for future treatment plan. 06/21/22: MOCA completed at beginning of appt. Pt's overall score was 17/30, indicating moderate cognitive impairment. Pt demonstrated deficits in following domains: visuospatial/executive domain (3/5), attention (4/6), language (0/3), abstraction (1/2), and delayed recall (0/5). Discussed referral for further evaluation and pt was in agreement. Pt has tolerated Effexor XR 75 mg without difficulty. He is to increase Effexor XR to 112.5 mg daily and taper Remeron to 7.5 mg for three days then discontinue. He was advised that melatonin 3 mg could be used to aid with sleep initiation if necessary after Remeron discontinued. Pt and his verbalized understanding of recommendations. 07/12/22: D/C attempt of Remeron was unsuccessful and pt was advised on 06/26/22 to resume Remeron 7.5mg at bedtime for sleep support. Anxiety improved with resumption of Remeron, but side effects continue to be experienced. Decision was made to increase Remeron to 15 mg, as pt had best symptom management on higher dose, continue with Effexor XR 112.5 mg and have pt and follow up via message after one week to update on symptom and side effect status. I am hesitant to change medications, as this induces significant anxiety in patient and he has had poor tolerability in the past to medications. 07/24/22: due to intolerable daytime fatigue and sedation, Remeron 15 mg will be discontinued. Trazodone 25 mg at bedtime will be started for augmentation of Effexor XR and for sleep support. Ativan 0.5 mg daily PRN prescribed and to be taken if panic should occur. Effexor XR 112.5 mg to remain as prescribed. 08/09/22: Trazodone was helpful for sleep initially, but has since not provided support for complete nights sleep. 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 Anxiety and panic symptoms have increased with dc of Remeron Daytime fatigue and drowsiness have remitted with dc of Remeron, as has constipation Pt was inaccurately labeling how he was feeling as side effects to medications, but with further exploration, these feelings are more accurately related to anxiety and panic (as noted below) Pt has experienced an increase in anxiety and panic since Remeron was discontinued. Pt was initially describing how he was feeling as experiencing side effects to medication, but after further review, it was determined that what he is experiencing is anxiety and panic attacks. He describes experiencing episodes of symptoms as detailed above, of short duration, that are not precipitated by any specific event or thought that occur throughout the day with no consistent pattern. Pt is also having increased difficulty with sustaining sleep. He voiced concerns related to increased indigestion and belching. We reviewed this might be related to recent initiation of CPAP machine and recommended anti-gas/simethicone as mitigating treatment. Recommend increasing trazodone to 50 mg QHS for sleep support and increase in Effexor XR to 150 mg daily for anxiety, panic and depressive symptoms. 08/24/22: has seen some improvement with increase in medications. Since last appt, pt has different perspective of feelings - identifying the feelings as symptoms of anxiety versus side effects from medications. Genna feels trazodone is working to provide full nights sleep, but it is causing morning drowsiness that Genna finds difficult. He has not been experiencing as much nausea. He states he now knows what to expect in the morning with Effexor and trazodone. Anxiety has been coming andgoing every day though. The anxiety symptoms have become more apparent in the evening, starting with leg shaking. He also experiences sensations of chills that come in waves. Physical effects happen e zunilda in the absence of feelings of anxiety. Genna has learned that distraction relieves the symptoms almost always. He is gaining improved control over managing the symptoms of anxiety. The episodes of anxiety are described as less intense and shorter in duration. He has not used PRN of ativan to date. Plan is to decrease trazodone to 37.5 mg at bedtime to provide adequate sleep support, but reduce AM drowsiness. No other changes to medication plan today. Discussed importance of mindfulness and to continue to use distraction to promote control over anxious feelings. 09/11/22: Genna continues to have episodes of anxiety when not engaged in activities. He is concerned this is side effect to Effexor. We discussed his symptoms of shaking legs, sometimes feeling clammy, poor concentration, feeling of cold that starts in his lower extremities and works up to his head, and nausea. We reviewed that these episodes are happening frequently, often with trigger, such assitting in his chair trying to relax. He agrees when sitting quietly, he waits to have anxiety. We dicussed risk of triggering anxiety by anticipating that it will occur. Genna is feeling frustratedwith feeling anxiety is no better. Overall, Genna has shown improvement with anxiety condition, but episodes do continue periodically. Labs will be ordered to rule out medical reason for episodes. Discussed adding Buspar 7.5 mg BID with plan to titrate as tolerated to further address anxiety symptoms. Increase in trazodone to 50 mg QHS has been effective in sleep support. Ativan PRN has not beenused to date. Will coordinate with sleep medicine regarding possibility that CPAP is contributing to indigestion and belching. 10/02/22: Starting buspar has been somewhat helpful in reducing anxiety symptoms. Nausea continues every morning. No relief with improvement in anxiety symptoms. Pt did report the weekend was better - he felt more himself. He has been sleeping adequately with trazodone. Pt strongly feels nausea is related to Effexor - as nausea has been sustained with minimal relief and this is problematic to pt, plan is to increase Buspar to 10 mg BID to further reduce anxiety symptoms and to decrease Effexor XRto 75 mg daily for three days then to taper to 37.5 mg daily for three days then discontinue. Pt and were advised if nausea is relieved at lower dose of Effexor and moods remain stable, to reach out for reassessment of plan and possible continuation of Effexor. If Effexor taper completed and depressive symptoms resume, Prozac will be considered. 10/27/22: Pt has responded well to Buspar. Taper of Effexor completed and withdrawal effects have subsided. Mornings are better. Overall feeling better. Has not been experiencing cold sensations or shaking. Still having sudden onset episodes of anxiety that last for approx 3 hours, but intensity andfrequency have lessened. Pt expressed his high level of anxiety related to neuropsych eval scheduled in December. We discussed benefits and limitations of this eval. Pt and his are going to discuss if they want to proceed with eval. Pt's memory has been improving with adequate anxiety management. Trazodone is helpful with sleep support. Discussed benefit of increasing Buspar to 10 mg TID (or 15 mg BID) to address residual anxiety. Pt and in agreement. Pt will start with TID dosing, but ifthis presents as difficult to adhere to, pt is to change dosing to 15 mg BID. Pt and verbalized understanding. 12/08/22: Pt is currently experiencing an ocular migraine at the time of his visit and he is having some difficulty with expressing his thoughts and articulating words. With the help of his , pt relates having continued anxiety in the AM - this past week has increased in intensity. He is experiencing nagging, worried thoughts. Distraction has been helpful in reducing anxiety, but not as effectiv asif. Buspar dose is currently 15 mg in AM 10 mg at noon, and 15 mg bedtime - as changed via MyChartconversation. Pt gets anxious about remembering mid day dose. Trazodone is helpful with sleep support. He has experienced the recent of his sister and of a close friend within the past month. Increase in headaches/migraines. Is avoiding doing activities that he enjoys. Plan is to increase Buspar to 30 mg BID. Trazodone will remain as prescribed. Will consider augmenting Buspar if increase is ineffective. Possible options are increasing trazodone or adding medication such as gabapentin. 8/21/23: (See telephone conversations over past 6 weeks.) Pt is currently taking Buspar 15 mg in AM, 15 mg noon, and 10 mg PM. Pt's has observed significant decompensation in anxiety management with absence of antidepressant/antianxiety medication. For short time after Effexor was discontinued, pt felt improvement in anxiety, as side effects of Effexor stopped with dc of medication, but anxiety had not increased to current level. Pt is experiencing constant low level anxiety all day now. Pt has been doing less socially. He has not been able to use distraction to cope with anxiety. Trazodone is effective for sleep support. He has not been experiencing GI distress since Effexor was discontinued. No daytime fatigue in absence of Remeron. Currently experiencing constant feeling of unease, anxiety. No increase in ocular migraines. Pt has difficulty differentiating between medication side effects and symptoms of anxiety. This difficulty causes confusion and concern with suggestions for next steps in treatment. Plan is to start Paxil 10 mg at bedtime for anxiety symptoms. This medication may be less likely tocause GI distress, which has been SE experienced with all other trialed SSRIs, and may support sleep if taken QHS. If intolerable QHS, dosing will be changed to AM. Pt and were educated on available use of Ativan 0.5 mg PRN for extreme anxiety episodes. Trazodone and buspar will remain as prescribed. 02/12/23: Pt has been experiencing significant panic attacks daily, approx three times per day noon,3-4 and 6 pm. Via [employer] message, pt had reported intolerable side effects to paxil and was advised tostop the medication. He has not used PRN of ativan to date. We discussed purpose of the PRN and suggested a routine dose of 0.25 mg be taken at 1100 AM, as first anxiety intensifies at noon. Pt and wi fe in agreement. Pt has been unable to go into public for the past several weeks due to anxiety. Hehas stopped playing in [employer] band, is worried about general household tasks, and feels he is back to were he was when medication treatment was started. Trazodone continues to be effective for sleep support and he is sleeping through the night. Pt is not experiencing anxiety/panic upon waking. Pt was provided support and encouragement regarding symptoms and treatment frustrations. Discussed possibility of adding gabapentin to medication plan to address increased anxiety. Also recommend decreasing Buspar to 10 mg TID, as symptoms of anxiety seemedto become more pronounced when dose was increased. Pt requested only having Buspar decrease and adding routine dose of Ativan at this time. He will consider adding new medication if this plan is ineffective. Pt was advised additional 0.25 mg of ativan can be used if no relief with lower dose. Pt's will assist with medication administration. Also recommended therapy. Pt is in favor, but therapy resources are unavailable. Pt continues to be on waiting list for group therapy. Plan: decrease Buspar to 10 mg TID; have pt take 0.25 - 0.5 mg of ativan routinely at 1100 until anxiety/panic is stabilized, continue trazodone as Rx. 02/23/23: Pt has not had good symptom management over the past two weeks. Reviewed history of medication over the past year. Trazodone has been very good for sleep support. and have been at odds on how the medications is working. Pt is concerned Buspar is cause for some of the symptoms he is experiencing with anxiety. This is a pattern pt has demonstrated throughout treatment, concernmedication is cause of symptoms and not anxiety. Discussed cost versus benefit of medication treatment. Reviewed GeneSight testing as option for clarifying what medications pt may compatible. Encouraged pt and his to research this option prior to making a decision to proceed. After extensive review of previous medication response, discussion of option between returning to Remeron, which pt responded well to in the past, or starting new medications, such as gabapentin, recommendation is to restart Remeron 15 mg at bedtime for treatment of anxiety and depression. Pt is to discontinue trazodone. He will continue Buspar 10 mg TID at this time, although, pt is blaming buspar for current anxiety. He may utilize Ativan 0.5 mg BID PRN for moderate to severe anxiety. 03/12/23: Pt has been feeling modestly improved management of anxiety within the past two days. Pt restarted Remeron 15 mg approx 2 weeks ago. He continues with Buspar 10 mg TID. He has been utilizingAtivan 0.25 mg to 0.5 mg almost daily, but only once per day, with the exception of one or two dayswhen Remeron first started. PRN is aiding in reduction of debilitating anxiety and panic. Pt has been going out of the home more and has been more engaged, per his . He continues to sleep throughthe night with no change in sleeping pattern with med changes. Daytime drowsiness is minimal. Reviewed results of GeneSight testing. Results provide guidance that Remeron dose may be best tolerated at lower doses. Buspar has not gene-drug interactions. Plan is to continue medications as prescribed, as modest improvement has been experienced and medication just recently restarted. Diagnosis: Generalized Anxiety Disorder Panic disorder Major depressive disorder, recurrent, in partial remission Rule out mild cognitive impairment Medications: Continue Ativan 0.25 mg to 0.5 mg BID PRN for severe anxiety/panic as noted above Continue Buspar 10 mg in AM, 10 mg noon, and 10 mg PM for anxiety Continue Remeron 15 mg at bedtime I have reviewed the patient's controlled substance dispensing history in the Prescription Drug Monitoring Program in compliance with the [facility] regulations before prescribing a controlled substance. Laboratory/Diagnostics: none Counseling: Continue to offer psychotherapy utilizing as adjunct to evaluation, management and prescription of psychiatric medications. Patient referred to CBT group therapy PCP/medical: Continue to follow up with primary care provider and/or medical specialists as scheduled/appropriate. Return Appointment: Timothy Sorensen Jr. is to return in 2 weeks. Sooner PRN. This treatment plan was reviewed and discussed with the patient. He and/or family had the opportunity to ask questions and agreed with the treatment plan and course of care. Crisis and Treatment Planning: The crisis plan was completed/reviewed and updated as appropriate with the patient. Timothy Sorensen Jr. participated in developing a crisis plan should he/she experienceworsening of symptoms before next follow-up appointment, including being aware of what resources touse according to the urgency and severity of symptoms. Timothy Sorensen Jr. was able to verbalize understanding of the steps necessary to obtain help between appointments should be needed, from requesting a phone call, to requesting an appointment sooner, including reaching clinic after hours, or accessing emergency mental health and medical services, either at a local emergency department or by activating mobile crisis teams and EMS. Psychoeducation was provided regarding patient's diagnoses and potential treatment modalities, including psychotherapeutic and psychopharmacologic options for treatment. Risks, benefits, alternativesand side effects of medication/s were explained, and the patient verbalized understanding of the ris ks and benefits of using medication as prescribed. The benefits of treatment outweigh the risks. Patient cautioned not to drive, operate heavy machinery, or participate in other tasks requiring full cognitive alertness until they know how new medications will affect them. Pt encouraged to keep all medications out of the reach of children. The patient participated in the development of the treatment plan, verbalized understanding, voices no concerns and is agreeable to the treatment plan. Patient is making an informed medical decision to follow the recommendations outlined in this note. Directed pt to call with any questions or concerns, worsening symptoms and/or ask for earlier appointment. Risk Assessment: Risk assessment was performed for Timothy Sorensen Jr.. This patient is being treated for mental health conditions as characterized above; at the time of this visit, there was no indication that this patient was either a risk to self, others, or gravely disabled by symptoms of a mental illness. At the time of this evaluation, there were enough protective factors in place and it wasdeemed safe to continue with treatment on a outpatient basis with return to clinic in the timeframedescribed above. Please note >38 minutes of counseling time over and above medication management was spent with patient discussing self care and providing supportive therapy, including Supportive listening Problem solving Shahla Lopez, MSN, CRANE OILER, PMHNP-BC [facility] [place] Psychiatry [facility] Current Outpatient Medications Medication Sig Dispense Refill LORazepam 0.5 MG Oral Tablet (Ativan) Take 1 Tablet by mouth daily as needed for Anxiety. 30 Tablet0 VITAMIN B COMPLEX PO CAPS 1 cap [...] mouth every evening. 45 Tablet 3 Ipratropium [place] 0.03 % Nasal Solution 2 squirts each nostril 2-4 times daily. May precede with nasal saline 90 mL 3 Zoster Vac Recomb Adjuvanted 50 MCG/0.5ML Intramuscular Suspension Reconstituted (Shingrix) Inject 0.5 mL into a large muscle now and repeat dose in 60 to 180 days 1 Each 1 CPAP every night at bedtime. busPIRone HCl 10 MG Oral Tablet (Buspar) Take 1 Tablet by mouth in the morning and 1 Tablet at noonand 1 Tablet in the evening and 1 Tablet before bedtime. 120 Tablet 2 Mirtazapine 15 MG Oral Tablet (Remeron) Take 1 Tablet by mouth at bedtime. 30 Tablet 1 Atorvastatin Calcium 20 MG Oral Tablet (Lipitor) take 1 tablet by mouth once daily 90 Tablet 1 Mometasone Furoate 50 MCG/ACT Nasal Suspension instill 2 sprays into each nostril once daily if needed for allergies 51 g 1 No current facility-administered medications for this visit. documented in this encounter Plan of Treatment Upcoming Encounters Date Type Specialty Care Team Description 03/14/2023 Office Visit Sleep Disorders Carla Montoya, [address] [place] [address] 04/03/2023 Telemedicine Psychiatry Lopez, PARVIZ Morales [address] [facility] [place] [address] 04/18/2023 Office Visit Dermatology Alexsandra Butts PA-C [address] [facility] [place] [phone] 05/07/2023 Office Visit Psychiatry Lopez, PARVIZ [place] [place] [address] 10/10/2023 Nurse Only Ancillary Im, Nurse Annual Wellness [facility] [address] [place] [address] 10/10/2023 Office Visit Internal Medicine Betty Muñoz MD [address] [place] [address] Health Maintenance Due Date Last Done Comments Hepatitis C Screening 1968 Cologuard 02/22/1996 Fecal Occult Blood Test 02/22/1996 Sigmoidoscopy 02/22/1996 Zoster Vaccines (1 of 2) 2001 DTaP,Tdap,and Td Vaccines (1 - Tdap) 10/11/2007 10/10/2007 COVID-19 Vaccine (5 - season) 2023 09/13/2021, 03/29/2021, 07/30/2020, Additional [...] this encounter Medical Devices Implanted Type Area Filter Tank Operator Device Identifier Shelf Expiration Date Model / Serial / Lot Lens Intraoc 20.0 - [id number] - [id number] Implanted:Qty: 1 on 01/10/2022 by Woodrow Merlos MD at OR [facility] Left: Eye [employer] 06/03/2026 [id number] / [id number] / [id number] Lens Intraoc 20.0 - [id number] - [id number] Implanted:Qty: 1 on 01/17/2022 by Woodrow Merlos MD at OR [facility] Right: Eye [employer]OM[employer] 07/04/2026 [id number] / [id number] / [id number] documented as of this encounter Visit Diagnoses Diagnosis Generalized anxiety disorder- Primary Panic disorder without agoraphobia Recurrent major depressive disorder, in partial remission (HCC) documented in this encounter Advance Directives Latest Code Status on File Code Status Date Activated Date Inactivated Comments No Code 01/17/2022 12:53 PM 01/17/2022 7:09 PM This order reflects the patients wishes and were consensually agreed upon. Question Answer Comments Discussion of Advance Directives occurred with: Patient Does the patient have a Living Will? No Does the patient have Health Care Power of Mechanic Senior? No Code Status History Code Status Date Activated Date Inactivated Comments No Code 01/10/2022 10:23 AM 01/10/2022 4:37 PM This o rder reflects the patients wishes and were consensually agreed upon. Question Answer Comments Discussion of Advance Directives occurred with: Patient Does the patient have a Living Will? No Does the patient have Health Care Power of Mechanic Senior? No Care Teams Physician Assistant Primary Care Relationship Specialty Start Date End Date Betty Muñoz MD [address] [place] [id number] PCP - General Internal Medicine 01/31/21 documented as of this encounter
--- OUTSIDE RECORDS SUMMARY | 2023-05-05 09:09 | External Medical Summary | Summary of Care ---
Author Name Unknown Organization [facility] Address [address] [place] [address] Phone [phone] Care Team Providers Care Bmw Sales Consultant Name Role Phone Betty Muñoz MD Primary Care Provider [phone] Encounter Details Date Type Department Care Team (Late st Contact Info) Description 03/06/2023 Result Scan Unspecified Department <No scans attached> Allergies Active Allergy Reactions Criticality Noted Date Comments Iodinated Contrast Media Rash 10/06/2009 Iodine Rash 04/17/2001 documented as of this encounter (statuses as of 03/28/2023) Medications Medication Sig Dispensed Refills Start Date [...] evening. 45 Tablet 3 06/15/2022 Active Ipratropium [place] 0.03 % Nasal Solution 2 squirts each [...] as of this encounter (statuses as of 03/28/2023) Active Problems Problem Noted Date Diagnosed Date GAATHA (obstructive sleep apnea) 05/30/2022 Generalized anxiety disorder [...] 03/04/2018 Overview: Trunk/neck GERD (gastroesophageal reflux disease) 03/21/201 3 DYSLIPIDEMIA, GOAL LDL BELOW 100 05/13/2009 Overview: Per Lipid Taxonomy. documented as of this encounter (statuses as of 03/28/2023) Resolved Problems Problem Noted Date Diagnosed Date Resolved Date Deviated nasal septum 12/15/20192021 Rhinorrhea 12/15/2019 01/19/2020 Helicobacter pylori (H. pylori) infection 12/29/2015 03/27/2019 Overview: Treated in 11/2015 Coronary atherosclerosis of [place] coronary artery 11/11/2010 02/06/2018 Old myocardial infarct [...] - R eye 4/95 04/19/2002 03/04/2018 OTHER ACNE-304/19/2002 03/04/2018 Other atopic dermatitis 04/19/200212/03 Overview: ICD-10 update of inactive term Other allergic rhinitis 04/17/200101/02 Overview: ICD-10 update of inactive term Dyslipidemia, goal to be determined 04/28/2009 Overview: Per Lipid Taxonomy Acute OR, anterior wall 05/05 Hypoglycemia 12/27/2017 Benign neoplasm of prostate 03/04/2018 documented as of this encounter (statuses as of 03/28/2023) Immunizations Name Administration Dates Next Due COVID-19 [...] on file documented as of this encounter Plan of Treatment Upcoming Encounters Date Type Department Care Team (Late st Contact Info) Description 04/03/2023 10:00 AM EDT Telemedicine Psychiatry, [place] [address] [address] Shahla Lopez CRNP [address] [place] [address] 04/11/2023 10:30 AM EST Office Visit Ophthalmology, [facility] [address] [facility] [place] [address] Corey Casiano, [address] [place] [address] 04/18/2023 10:40 AM EST Office Visit Dermatology [facility] [address] [place] [address] Alexsandra Butts PA-C [address] [place] [phone] 05/07/2023 11:00 AM EST Office Visit Psychiatry, [facility] [address] [place] [address] Shahla Lopez CRNP [address] [facility] [place] [address] 10/10/2023 10:00 AM EDT Nurse Only Ancillary [facility] [address] [place] [address] Im, Nurse Annual Wellness [facility] [address] [facility] [place] [address] 10/10/2023 12:00 PM EDT Office Visit General Internal Medicine [facility] [address] [facility] [place] [address] Betty Muñoz MD [address] [facility] [place] [address] 01/31/2024 10:30 AM EDT Office Visit Allergy/Immunology [facility] [address] [facility] [place] [address] Malgorzata Ingram PA-C [address] [facility] [place] [address] 03/21/2024 10:00 AM EDT Office Visit Sleep Disorders [facility] [address] [place] [phone] Carla Montoya DO [address] [place] [address] Health Maintenance Due Date Last Done Comments [...] this encounter Medical Devices Implanted Type Area Lingo Cleaner Device Identifier Shelf Expiration Date Model / Serial / Lot Lens Intraoc 20.0 - [id number] - [id number] Implanted:Qty: 1 on 01/10/2022 by Woodrow Merlos MD at OR [facility] Left: Eye [employer] 06/03/2026 [id number] / [id number] / [id number] Lens Intraoc 20.0 - [id number] - [id number] Implanted:Qty: 1 on 01/17/2022 by Woodrow Merlos MD at OR [facility] Right: Eye [employer]OM[employer] 07/04/2026 [id number] / [id number] / [id number] documented as of this encounter Procedures Procedure Name Priority Date/Time Associated Diagnosis Comments OUTSIDE LAB RESULTS 03/06/2023 documented in this encounter Results * OUTSIDE LAB RESULTS (03/06/2023) 03/06/2023 No Physician Data Unknown LABORATORY documented in this encounter Advance Directives Latest Code Status on File Code Status Date Activated Date Inactivated Comments No Code 01/17/2022 12:53 PM 01/17/2022 7:09 PM This order reflects the patients wishes and were consensually agreed upon. Question Answer Comments Discussion of Advance Directives occurred with: Patient Does the patient have a Living Will? No Does the patient have Health Care Power of Singer Songwriter? No Code Status History Code Status Date Activated Date Inactivated Comments No Code 01/10/2022 10:23 AM 01/10/2022 4:37 PM This o rder reflects the patients wishes and were consensually agreed upon. Question Answer Comments Discussion of Advance Directives occurred with: Patient Does the patient have a Living Will? No Does the patient have Health Care Power of Singer Songwriter? No Care Teams Bmw Sales Consultant Relationship Specialty Start Date End Date Betty Muñoz MD [address] [place] [address] PCP - General Internal Medicine 01/31/21 documented as of this encounter
--- OUTSIDE RECORDS SUMMARY | 2023-05-05 09:09 | External Medical Summary | Summary of Care ---
Author Name Unknown Organization [facility] Address [address] [place] [address] Phone [phone] Care Team Providers Care Retail Property Manager Name Role Phone Betty Muñoz MD Primary Care Provider [phone] Reason for Visit * Reason Onset Date Comments Advice 03/16/2023 Encounter Details Date Type Department Care Team Description 03/16/2023 Telephone Pulmonary Medicine, [facility] [address] [facility] [address] Carla Montoya, [address] [facility] [place] [address] Advice Allergies Active Allergy Reactions Severity Noted Date Comments Iodinated Contrast Media Rash 10/06/2009 Iodine Rash 04/17/2001 documented as of this encounter (statuses as of 03/16/2023) Medications Medication Sig Dispensed Refills Start Date [...] evening. 45 Tablet 3 06/15/2022 Active Ipratropium [place] 0.03 % Nasal Solution 2 squirts each [...] as of this encounter (statuses as of 03/16/2023) Active Problems Problem Noted Date AGATHA (obstructive [...] as of this encounter (statuses as of 03/16/2023) Resolved Problems Problem Noted Date Resolved Date Deviated nasal septum 12/15/2019 10/03/2021 Rhinorrhea 12/15/2019 01/19/2020 Helicobacter pylori (H. pylori) infection 201503/27/2019 Overview: Treated in 11/2015 Coronary atherosclerosis of [place] coronary [place] ry 11/11/2010 02/06/2018 Old myocardial [...] inactive term epidermal cyst - R eye 404/19/200206/2017 OTHER ACNE-04/19/2002 03/04/2018 Other atopic dermatitis 04/19/2002 12/28/19 18 Overview: ICD-10 update of inactive term Other allergic rhinitis 04/17/2001 01/19/20 20 Overview: ICD-10 update of inactive term Dyslipidemia, goal to be determined 04/28/2009 Overview: Per Lipid Taxonomy Acute ID, anterior wall 05/31/20 10 Hypoglycemia 12/27/2017 Benign neoplasm of prostate 06/2017 documented as of this encounter (statuses as of 03/16/2023) Immunizations Name Administration Dates Next Due COVID-19 [...] 04/03/2023 Telemedicine Psychiatry Lopez, PARVIZ Morales [address] [facility] [place] [address] 04/18/2023 Office Visit Dermatology Alexsandra Butts PA-C [address] [facility] [place] [phone] 05/07/2023 Office Visit Psychiatry Lopez, PARVIZ Morales [address] [facility] [place] [address] 10/10/2023 Nurse Only Ancillary Im, Nurse Annual Wellness [facility] [address] [facility] [place] [address] 10/10/2023 Office Visit Internal Medicine Betty Muñoz MD [address] [facility] [place] [address] 01/31/2024 Office Visit Allergy & Immunology Malgorzata Ingram PA-C [address] [facility] [place] [address] 03/21/2024 Office Visit Sleep Disorders Carla Montoya, [address] [place] [address] Health Maintenance Due Date Last Done Comments [...] this encounter Medical Devices Implanted Type Area Breadman Device Identifier Shelf Expiration Date Model / Serial / Lot Lens Intraoc 20.0 - [id number] - [id number] Implanted:Qty: 1 on 01/10/2022 by Woodrow Merlos MD at OR [facility] Left: Eye [employer] 06/03/2026 [id number] / [id number] / [id number] Lens Intraoc 20.0 - [id number] - [id number] Implanted:Qty: 1 on 01/17/2022 by Woodrow Merlos MD at OR [facility] Right: Eye [employer]OM[employer] 07/04/2026 [id number] / [id number] / [id number] documented as of this encounter Advance Directives [...] the patient have Health Care Power of Risk And Insurance Consultant? No Code Status History Code Status Date Activated Date Inactivated Comments No Code 01/10/2022 10:23 AM 01/10/2022 4:37 PM This o rder reflects the patients wishes and were consensually agreed upon. Question Answer Comments Discussion of Advance Directives occurred with: Patient Does the patient have a Living Will? No Does the patient have Health Care Power of Risk And Insurance Consultant? No Care Teams Retail Property Manager Relationship Specialty Start Date End Date Betty Muñoz MD [address] [place] [id number] PCP - General Internal Medicine 01/31/21 documented as of this encounter
--- OUTSIDE RECORDS SUMMARY | 2023-05-05 09:09 | External Medical Summary | Summary of Care ---
Author Name Unknown Organization [facility] Address [address] [place] [address] Phone [phone] Care Team Providers Care Granular Operator Name Role Phone Betty Muñoz MD Primary Care Provider [phone] Reason for Visit * Reason Onset Date Comments Advice 03/16/2023 Encounter Details Date Type Department Care Team Description 03/16/2023 Telephone Pulmonary Medicine, [facility] [address] [facility] [place] [address] Carla Montoya, [address] [place] [address] Advice Allergies Active Allergy Reactions Severity Noted Date Comments Iodinated Contrast Media Rash 10/06/2009 Iodine Rash 04/17/2001 documented as of this encounter (statuses as of 03/22/2023) Medications Medication Sig Dispensed Refills Start Date [...] evening. 45 Tablet 3 06/15/2022 Active Ipratropium [place] 0.03 % Nasal Solution 2 squirts each [...] as of this encounter (statuses as of 03/22/2023) Active Problems Problem Noted Date AGATHA (obstructive [...] as of this encounter (statuses as of 03/22/2023) Resolved Problems Problem Noted Date Resolved Date Deviated nasal septum 12/15/2019 10/03/2021 Rhinorrhea 12/15/2019 01/19/2020 Helicobacter pylori (H. pylori) infection 201503/27/2019 Overview: Treated in 11/2015 Coronary atherosclerosis of [place] coronary shantel ry 11/11/2010 02/06/2018 Old myocardial [...] cyst - R eye 495 04/19/200206/2017 OTHER ACNE-04/19/2002 03/04/2018 Other atopic dermatitis 04/19/2002 12/28/19 18 Overview: ICD-10 update of inactive term Other allergic rhinitis 04/17/2001 01/19/20 20 Overview: ICD-10 update of inactive term Dyslipidemia, goal to be determined 04/28/2009 Overview: Per Lipid Taxonomy Acute [place], anterior wall 05/31/20 10 Hypoglycemia 12/27/2017 Benign neoplasm of prostate 06/2017 documented as of this encounter (statuses as of 03/22/2023) Immunizations Name Administration Dates Next Due COVID-19 [...] Telephone Encounter - Carla Montoya DO - 03/22/2023 4:44 PM EDT Updated CPAP download received PAP Compliance Data: Report date: 12/16/22 to 03/15/23 % total days used: 100% % days used > 4 hours: 98% Average hours used per day used: 7h 12m Large leak: no AHI: 0.3 /hr Median pressure: 5.7 cmH2O 95%ile pressure 8.4 cmH2O Set pressure: 5-12 cmH2O Excellent objective efficacy of therapy. Continue current settings. MyG sent. documented in this encounter Plan of Treatment Upcoming Encounters Date Type Specialty Care Team Description 04/03/2023 Telemedicine Psychiatry Lopez, ShahlaPARVIZ Hsieh [address] [place] [address] 04/18/2023 Office Visit Dermatology Alexsandra Butts PA-C [address] [place] [phone] 05/07/2023 Office Visit Psychiatry Lopez, PARVIZ Morales [address] [place] [address] 10/10/2023 Nurse Only Ancillary Im, Nurse Annual Wellness [facility] [address] [place] [address] 10/10/2023 Office Visit Internal Medicine Betty Muñoz MD [address] [place] [address] 01/31/2024 Office Visit Allergy & Immunology Malgorzata Ingram PA-C [address] [place] [address] 03/21/2024 Office Visit Sleep Disorders Carla Montoya, DO [address] [place] [address] Health Maintenance Due Date Last Done Comments [...] this encounter Medical Devices Implanted Type Area Criminal Analyst Device Identifier Shelf Expiration Date Model / Serial / Lot Lens Intraoc 20.0 - [id number] - [id number] Implanted:Qty: 1 on 01/10/2022 by Woodrow Merlos MD at OR [facility] Left: Eye [employer] LOM[employer] 06/03/2026 [id number] / [id number] / [id number] Lens Intraoc 20.0 - [id number] - [id number] Implanted:Qty: 1 on 01/17/2022 by Woodrow Merlos MD at OR [facility] Right: Eye BAUSCH [employer] LOMB 07/04/2026 [id number] / [id number] / [id number] documented as of this encounter Advance Directives [...] patient have Health Care Power of Dental Insurance Coordinator? No Code Status History Code Status Date Activated Date Inactivated Comments No Code 01/10/2022 10:23 AM 01/10/2022 4:37 PM This o rder reflects the patients wishes and were consensually agreed upon. Question Answer Comments Discussion of Advance Directives occurred with: Patient Does the patient have a Living Will? No Does the patient have Health Care Power of Dental Insurance Coordinator? No Care Teams Granular Operator Relationship Specialty Start Date End Date Betty Muñoz MD [address] [place] [address] PCP - General Internal Medicine 01/31/21 documented as of this encounter
--- OUTSIDE RECORDS SUMMARY | 2023-05-05 09:09 | External Medical Summary | Summary of Care ---
Author Name Unknown Organization [facility] Address [address] [place] [address] Phone [phone] Care Team Providers Care Multicut Line Operator Name Role Phone Betty Muñoz MD Primary Care Provider [phone] Reason for Visit * Reason Comments Medication Management Follow Up Encounter Details Date Type Department Care Team (Late st Contact Info) Description 04/03/2023 10:00 AM EDT Telemedicine Psychiatry[address] [address] Shahla Lopez CRNP [address] [place] [address] Generalized anxiety disorder*; Panic disorder without agoraphobia; Recurrent major depressive disorder, in partial remission (HCC) Allergies Active Allergy Reactions Criticality Noted Date Comments Iodinated Contrast Media Rash 10/06/2009 Iodine Rash 04/17/2001 documented as of this encounter (statuses as of 04/03/2023) Medications Medication Sig Dispensed Refills Start Date [...] evening. 45 Tablet 3 06/15/2022 Active Ipratropium [place] 0.03 % Nasal Solution 2 squirts each [...] at bedtime. 45 Tablet 1 04/03/2023 Active Mirtazapine 15 MG Oral Tablet (Remeron)Indications :Generalized anxiety disorder,Panic disorder without agoraphobia,Recurren t major depressive disorder, in partial remission (HCC) Take 1 Tablet by mouth at bedtime. 30 Tablet 1 02/23/2023 3 Discontinue d(Refill) documented as of this encounter (statuses as of 04/03/2023) Active Problems Problem Noted Date Diagnosed Date [...] as of this encounter (statuses as of 04/03/2023) Resolved Problems Problem Noted Date Diagnosed Date Resolved Date Deviated nasal septum 12/15/20192021 Rhinorrhea 12/15/2019 01/19/2020 Helicobacter pylori (H. pylori) infection 12/29/2015 03/27/2019 Overview: Treated in 11/2015 Coronary atherosclerosis of [place] coronary artery 11/11/2010 02/06/2018 Old myocardial infarct [...] determined 04/28/2009 Overview: Per Lipid Taxonomy Acute [place], anterior wall 05/05 Hypoglycemia 12/27/2017 Benign neoplasm of prostate 03/04/2018 documented as of this encounter (statuses as of 04/03/2023) Immunizations Name Administration Dates Next Due COVID-19 [...] as of this encounter Progress Notes * Shahla Lopez CRNP - 04/03/2023 10:10 AM EDT OUTPATIENT PSYCHIATRY DIVISION OF PSYCHIATRY [facility] Office [address] [place] [address] MEDICATION MANAGEMENT & PSYCHOTHERAPY RETURN VISIT NOTE Name: Timothy Hernandez Franchesca Wells : 1950 LOCATION FROM WHICH SERVICE IS DELIVERED [facility] PATIENT'S CURRENT PHYSICAL LOCATION Home After connecting through televideo, patient was verified with two unique identifiers. Patient (or authorized legal screening representative) was then informed that this was a Telemedicine visit and being conducted confidentially over secure lines. Methods to assure confidentiality were taken. Patient acknowledged consent and understanding of privacy and security of the Telemedicine visit. The patient agreed to participate. The patient was seen and interviewed, and [...] loss of appetite. He recently started seeing audiologist for unintended weight loss. These flushing episodes [...] or current CYS involvement: no History of homelessness/fpc living? 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 REVIEW OF SYSTEMS: unremarkable MENTAL STATUS EVALUATION: General Appearance: appropriately dressed, appropriately groomed, and good eye contact Attitude/Behavior: cooperative, open and friendly, engaged Motor Behavior/Muscle Strength & Tone/Gait & Station: no abnormalities noted Speech: normal volume, tone Mood: anxious Affect: mood-congruent Thought Process: linear Thought Content/Perceptions: [...] Insight: fair Judgement: fair Impulse Control: fair [place] Suicide Severity Rating Scale Results 04/03/2023 17:41 [place] SUICIDE SEVERITY RATING SCALE (C-SSRS) Have [...] attitude and or beliefs and cultural and gnosticist beliefs that discourage suicide and support hopefulness [...] Suicide and Crisis Lifeline - 988 and CatchSquarehart access to crisis numbers Patient/Family Received Copy of Treatment Plan: Patient has access to [employer] Signature Obtained on Treatment Plan: No Expected family or significant other involvement: Participate in visits, Offer Support and Crisis Support Patient strengths and facilitating factors to care:Recognizes need for change, Seeking help, Goal Oriented, Attempting to realize ones potential, Manages multiple demands in life, Has a purpose in life, Has hobbies, Good support system, Cultural/spiritual/gnosticist and community involvement, Accessto housing, Financial stability, Cooperative and Able to care for own personal hygiene Patient Identified Needs/Goals Interventions/Type of Service Duration of Treatment Frequency of Treatment Objective/ Discharge Criteria Problem/Need1: Medication Management Medication Management 2 year Biweekly Achieved maintenance treatment phase at full therapeutic dosage for 6-12 months TREATMENT PROGRESS/UPDATE, ASSESSMENT, FORMULATION, AND PLAN: Timothy Villagrandoug Wells is a 72 year old male with [...] at bedtime. If Effexor is well tolerated, snf plan will be to taper Remeron and [...] complete nights sleep. 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 Anxiety and panic [...] trazodone or adding medication such as gabapentin. 01/22/23: (See telephone conversations over past 6 weeks.) [...] per day noon,3-4 and 6 pm. Via MyG message, pt had reported intolerable side effects [...] due to anxiety. Hehas stopped playing in [place], is worried about general household tasks, and [...] Daytime drowsiness is minimal. Reviewed results of [employer] testing. Results provide guidance that Remeron dose may be best tolerated at lower doses. Buspar has not gene-drug interactions. Plan is to continue medications as prescribed, as modest improvement has been experienced and medication just recently restarted. 04/03/23: Pt message 04/02/23 - 1. Side effects like chills or belching continue to subside. 2. Mornings are still rough until about 10AM. I'm now waking up regularly with anxiety. 3. On average I'm taking .25mg Ativan per day. Occasionally I take .5mg. 4. Do you think if I had a bit more anxiety meds it would help with the waking up with anxiety? 5. And maybe I wouldn't need the Ativan every day? Had to buy new car this week - this caused high level of anxiety. Music is still his way to relax - spends time with others and anxiety subsides. Evenings are good - has not felt need to take ativan in evening Discussed as needed use of Ativan - only used Ativan two times in one day less then 5 times. Has been able to engage in more social activities, but not back to baseline. Discussed high recommendation for therapy to support treatment. Pt is in agreement and is waiting to be contacted regarding group therapy. Discussed benefit of exercise and encouraged daily exercise to support medication treatment. Pt continues to have increased anxiety in the AM. Sleep is stable. Plan is to increase remeron to 22.5 mg at bedtime for continued improvement in anxiety symptoms. Ptexperienced increased anxiety related to increasing to 30 mg from 15 mg, so only 7.5 mg dose increase made at this time with plan to further increase for symptom response. Continue Buspar and ativan as prescribed. Diagnosis: Generalized Anxiety Disorder Panic disorder Major depressive disorder, recurrent, in partial remission Rule out mild cognitive impairment Medications: Continue Ativan 0.25 mg to 0.5 mg BID PRN for severe anxiety/panic as noted above Continue Buspar 10 mg in AM, 10 mg noon, and 10 mg PM for anxiety Increase to Remeron 22.5 mg at bedtime for anxiety and mood. I have reviewed the patient's controlled substance dispensing history in the Prescription Drug Monitoring Program in compliance with the [facility] regulations before prescribing a controlled substance. Laboratory/Diagnostics: none Counseling: Continue to offer psychotherapy utilizing as adjunct to evaluation, management and prescription of psychiatric medications. Patient referred to CBT group therapy PCP/medical: Continue to follow up with primary care provider and/or medical specialists as scheduled/appropriate. Return Appointment: Timothy Sorensen Jr. is to return in 4 weeks. Sooner PRN. This treatment plan was [...] clinic in the timeframedescribed above. Please note >17 minutes of counseling time over and above medication management was spent with patient discussing self care and providing supportive therapy, including Supportive listening Problem solving Shahla Lopez, MSN, ADMINISTRATION SPECIALIST, PMHNP-BC [facility] Psychiatry [facility] Current Outpatient Medications Medication Sig Dispense Refill Mirtazapine 15 MG Oral Tablet (Remeron) Take 1.5 Tablets by mouth at bedtime. 45 Tablet 1 VITAMIN B COMPLEX PO CAPS 1 cap [...] mouth every evening. 45 Tablet 3 Ipratropium [place] 0.03 % Nasal Solution 2 squirts each [...] 1 Tablet before bedtime. 120 Tablet 2 Atorvastatin Calcium 20 MG Oral Tablet (Lipitor) take 1 tablet by mouth once daily 90 Tablet 1 Mometasone Furoate 50 MCG/ACT Nasal Suspension instill 2 sprays into each nostril once daily if needed for allergies 51 g 1 LORazepam 0.5 MG Oral Tablet (Ativan) Take 1 Tablet by mouth daily as needed for Anxiety. 30 Tablet0 No current facility-administered medications for this visit. documented in this encounter Plan of Treatment Upcoming Encounters Date Type Department Care Team (Late st Contact Info) Description 04/11/2023 10:30 AM EST Office Visit Ophthalmology, [facility] [address] [place] [address] Corey Casiano DO [address] [place] [address] 04/18/2023 10:40 AM EST Office Visit Dermatology [facility] [address] [place] [address] Alexsandra Butts PA-C [facility] [place] [phone] 05/07/2023 11:00 AM EST Office Visit Psychiatry, [facility] [address] [place] [address] Shahla Lopez CRNP [address] [facility] [place] [address] 10/10/2023 10:00 AM EDT Nurse Only Ancillary [facility] Arrey [address] [place] [address] Im, Nurse Annual Wellness [facility] [address] [place] [address] 10/10/2023 12:00 PM EDT Office Visit General Internal Medicine [facility] [place] [address] [place] [address] Betty Muñoz MD [address] [facility] [place] [place] [address] 01/31/2024 10:30 AM EDT Office Visit Allergy/Immunology Kaila Wellington [place] [place] [address] Malgorzata Ingram PA-C [address] [facility] [place] [address] 03/21/2024 10:00 AM EDT Office Visit Sleep Disorders Ctr Lavern Bryant [place] [address] [place] [phone] Carla Montoya DO [address] [place] [address] Health Maintenance Due Date Last Done Comments [...] this encounter Medical Devices Implanted Type Area Ledger Poster Device Identifier Shelf Expiration Date Model / Serial / Lot Lens Intraoc 20.0 - [id number] - [id number] Implanted:Qty: 1 on 01/10/2022 by Woodrow Merlos MD at [place] [facility] Left: Eye [employer]CH [employer] LOMB 06/03/2026 [id number] / [id number] / [id number] Lens Intraoc 20.0 - [id number] - [id number] Implanted:Qty: 1 on 01/17/2022 by Woodrow Merlos MD at OR [facility] Right: Eye BAUSCH & LOMB 07/04/2026 [id number] / [id number] / [id number] documented as of this encounter Visit Diagnoses [...] the patient have Health Care Power of Director Search? No Code Status History Code Status Date Activated Date Inactivated Comments No Code 01/10/2022 10:23 AM 01/10/2022 4:37 PM This o rder reflects the patients wishes and were consensually agreed upon. Question Answer Comments Discussion of Advance Directives occurred with: Patient Does the patient have a Living Will? No Does the patient have Health Care Power of Director Search? No Care Teams Multicut Line Operator Relationship Specialty Start Date End Date Betty Muñoz MD [address] [place] [address] PCP - General Internal Medicine 01/31/21 documented as of this encounter
--- OUTSIDE RECORDS SUMMARY | 2023-05-05 09:09 | External Medical Summary | Summary of Care ---
Author Name Unknown Organization [facility] Address [address] [place] [address] Phone [phone] Care Team Providers Care Stationary Engineer Refrigeration Name Role Phone Betty Muñoz MD Primary Care Provider [phone] Reason for Visit * Reason Onset Date Comments Follow Up 03/15/2023 Encounter Details Date Type Department Care Team Description 03/15/2023 Telephone Pulmonary Medicine, [facility] [address] [facility] [address] Carla Montoya, [address] [facility] [place] [address] Follow Up Allergies Active Allergy Reactions Severity Noted Date [...] evening. 45 Tablet 3 06/15/2022 Active Ipratropium [place] 0.03 % Nasal Solution 2 squirts each [...] Overview: Treated in 11/2015 Coronary atherosclerosis of [place] coronary shantel ry 11/11/2010 02/06/2018 Old myocardial [...] Taxonomy Acute [place], anterior wall 05/31/20 10 Hypoglycemia 12/27/2017 Benign [...] encounter Miscellaneous Notes * Telephone Encounter - Mandy Bocanegra LPN - 03/16/2023 9:46 AM EDT Patient called and advised to take his SD card to the DME and they will read the information from the card so we can get the information from the card. Patient verbalized information. He wrote down our phone number in case he has questions. * Telephone Encounter - Carla Montoya DO - 03/15/2023 4:16 PM EDT Received faxed compliance report from [facility]. This is the same data ending in September of this year. I would like them to read his SD card and send us updated data. * Telephone Encounter - Colton Delarosa - 03/15/2023 8:20 AM EDT Orders in 03/14 [facility] supplies documented in this encounter Plan of Treatment Upcoming Encounters Date Type Specialty Care Team Description 04/03/2023 Telemedicine Psychiatry Lopez, PARVIZ Morales [address] [facility] [place] [address] 04/18/2023 Office Visit Dermatology Alexsandra Butts PA-C [address] [facility] [place] [phone] 05/07/2023 Office Visit Psychiatry Lopez, PARVIZ Morales [address] [facility] [place] [address] 10/10/2023 Nurse Only Ancillary Im, Nurse Annual Wellness [facility] [address] [place] [address] 10/10/2023 Office Visit Internal Medicine Betty Muñoz MD [address] [place] [address] 01/31/2024 Office Visit Allergy & Immunology Malgorzata Ingram PA-C 200 [facility] [place] [address] 03/21/2024 Office Visit Sleep Disorders Carla Montoya DO [address] [place] [address] Health Maintenance Due Date Last Done Comments [...] encounter Medical Devices Implanted Type Area Police Communications Operator Device Identifier Shelf Expiration Date Model / Serial / Lot Lens Intraoc 20.0 - [id number] - [id number] Implanted:Qty: 1 on 01/10/2022 by Woodrow Merlos MD at OR [facility] Left: Eye BAUSCH [employer] LOMB 06/03/2026 [id number] / [id number] / [id number] Lens Intraoc 20.0 - [id number] - [id number] Implanted:Qty: 1 on 01/17/2022 by Woodrow Merlos MD at OR [facility] Right: Eye BAUSCH & LOMB 07/04/2026 [id number] / [id number] / [id number] documented as of this encounter Advance Directives [...] the patient have Health Care Power of Typing Bookkeeper? No Code Status History Code Status Date Activated Date Inactivated Comments No Code 01/10/2022 10:23 AM 01/10/2022 4:37 PM This o rder reflects the patients wishes and were consensually agreed upon. Question Answer Comments Discussion of Advance Directives occurred with: Patient Does the patient have a Living Will? No Does the patient have Health Care Power of Typing Bookkeeper? No Care Teams Stationary Engineer Refrigeration Relationship Specialty Start Date End Date Betty Muñoz MD [address] [place] [address] PCP - General Internal Medicine 01/31/21 documented as of this encounter
--- OUTSIDE RECORDS SUMMARY | 2023-05-05 09:09 | External Medical Summary | Summary of Care ---
Author Name Unknown Organization [facility] Address [address] [place] [address] Phone [phone] Care Team Providers Care Broiler Chef Or Cook Name Role Phone Betty Muñoz MD Primary Care Provider [phone] Reason for Referral * Precert (Within 10 days (routine)) - Authorized Specialty Diagnoses / Procedures Referred By Contac t Referred To Contact Cardiac Studies Diagnoses Apical variant hypertrophic cardiomyopathy (HCC) Procedures ECHO, COMPLETE (2D), TRANS-THORACIC Audrey Su CRNP [address] [place] [address] Referral ID Status Reason Start Date Expiration Date V isits Requested Visits Authorized [id number] Authorized Precert 11/05/2023 999 999 Reason for Visit * Reason Comments Follow Up Encounter Details Date Type Department Care Team Description 03/08/2023 Office Visit Cardiology, [facility] [address] [place] [address] Audrey Su CRNP [address] [place] [address] Apical variant hypertrophic cardiomyopathy (HCC)*; DYSLIPIDEMIA, GOAL [...] evening. 45 Tablet 3 06/15/2022 Active Ipratropium [place] 0.03 % Nasal Solution 2 squirts each [...] Overview: Treated in 11/2015 Coronary atherosclerosis of [place] coronary shantel ry 11/11/2010 02/06/2018 Old myocardial [...] determined 04/28/2009 Overview: Per Lipid Taxonomy Acute SD, anterior wall 05/31/20 10 Hypoglycemia 12/27/2017 Benign [...] PM EDT 03/08/2023 Cardiology Follow Up Primary Master At Arms: Dr. Odell Cardiac Problems: Mild asymmetric hypertrophic [...] mouth every evening. 45 Tablet 3 Ipratropium [place] 0.03 % Nasal Solution 2 squirts each [...] visit. 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 PARVIZ [facility], [address] [address] I spent a total of 42 minutes on the date of service in preparation, delivery, and documentation ofthe care provided to Timothy Sorensen Jr. excluding any time spent in the performance of separately billed services. This chart was completed in part utilizing [email or web address] Speech Voice Recognition Software. Grammatical errors, random [...] Office Visit Psychiatry Lopez, PARVIZ [place] [place] [address] 03/14/2023 Office Visit Sleep Disorders Carla Montoya, [address] [place] [address] 04/18/2023 Office Visit Dermatology Alexsandra Butts PA-C [address] [place] [phone] 10/10/2023 Nurse Only Ancillary Im, Nurse Annual Wellness [place] [address] [place] [address] 10/10/2023 Office Visit Internal Medicine Betty Muñoz MD 200 [facility] [place] [address] Scheduled Orders Name Type Priority Associated Diagnoses [...] this encounter Medical Devices Implanted Type Area Recovery Operator Helper Device Identifier Shelf Expiration Date Model / Serial / Lot Lens Intraoc 20.0 - [id number] - [id number] Implanted:Qty: 1 on 01/10/2022 by Woodrow Merlos MD at OR [facility] Left: Eye BAUSCH & LOMB 06/03/2026 [id number] / [id number] / [id number] Lens Intraoc 20.0 - [id number] - [id number] Implanted:Qty: 1 on 01/17/2022 by Woodrow Merlos MD at OR [facility] Right: Eye BAUSCH & LOMB 07/04/2026 [id number] / [id number] / [id number] documented as of this encounter Visit Diagnoses [...] the patient have Health Care Power of Plastics Scientist? No Code Status History Code Status Date Activated Date Inactivated Comments No Code 01/10/2022 10:23 AM 01/10/2022 4:37 PM This o rder reflects the patients wishes and were consensually agreed upon. Question Answer Comments Discussion of Advance Directives occurred with: Patient Does the patient have a Living Will? No Does the patient have Health Care Power of Plastics Scientist? No Care Teams Broiler Chef Or Cook Relationship Specialty Start Date End Date Betty Muñoz MD 200 [place] [address] PCP - General Internal Medicine 01/31/21 documented as of this encounter"
--- OUTSIDE RECORDS SUMMARY | 2023-05-05 09:09 | External Medical Summary | Summary of Care ---
Author Name Unknown Organization [facility] Address [address] [place] [address] Phone [phone] Care Team Providers Care Autism Tutor Name Role Phone Betty Muñoz MD Primary Care Provider [phone] Reason for Visit * Reason Comments eRx-Medication Refill Encounter Details Date Type Department Care Team Description 03/04/2023 Refill General Internal Medicine [facility] 200 [facility] [place], [place] [phone] Betty Muñoz MD [address] [place] [address] Dyslipidemia, goal LDL below 100 Allergies Active Allergy Reactions Severity Noted Date Comments Iodinated Contrast Media Rash 10/06/2009 Iodine Rash 04/17/2001 documented as of this encounter (statuses as of 03/05/2023) Medications Medication Sig Dispensed Refills Start Date End Date Status VITAMIN B COMPLEX PO CAPS 1 cap daily 0 Active ASPIRIN EC 81 MG PO TBECIndications:Dys lipidemia, goal LDL below 100,Old myocardial infarct Take by mouth . 0 07/05/2010 Active sterile water for irrigation SOLN 240 mL with hypertonic saline rinse PACK 2 Packet 2 Packets 2 times a day. 0 Active Vitamin D 25 MCG (1000 UT) Oral Tablet Take by mouth. 0 Active Magnesium Oxide 400 MG Oral TabletIndications:M igraine variant,Visual aura Take 1 Tab by mouth daily. St 01/31/2021 1 Tab 0 01/31/2021 Active Metoprolol Succinate ER 25 MG Oral Tablet Extended Release 24 Hour (toPROL XL)Indications:Hype rtrophic non-obstructive cardiomyopathy (HCC) Take 0.5 Tablets by mouth every evening. 45 Tablet 3 06/15/2022 Active Ipratropium [place] 0.03 % Nasal Solution 2 squirts each nostril 2-4 times daily. May precede with nasal saline 90 mL 3 08/15/2022 Active Zoster Vac Recomb Adjuvanted 50 MCG/0.5ML Intramuscular Suspension Reconstituted (Shingrix)Indicatio ns:Need for vaccination for zoster Inject 0.5 mL into a large muscle now and repeat dose in 60 to 180 days 1 Each 1 10/09/2022 Active CPAP every night at bedtime. 0 Active busPIRone HCl 10 MG Oral Tablet (Buspar)Indications :Generalized anxiety disorder,Panic disorder without agoraphobia Take 1 Tablet by mouth in the morning and 1 Tablet at noon and 1 Tablet in the evening and 1 Tablet before bedtime. 120 Tablet 2 01/17/2023 Active LORazepam 0.5 MG Oral Tablet (Ativan)Indications :Generalized anxiety disorder,Panic disorder without agoraphobia Take 1 Tablet by mouth daily as needed for Anxiety. 30 Tablet 0 02/12/2023 Active Mirtazapine 15 MG Oral Tablet (Remeron)Indication s:Generalized anxiety disorder,Panic disorder without agoraphobia,Recurre nt major depressive disorder, in partial remission (HCC) Take 1 Tablet by mouth at bedtime. 30 Tablet 1 02/23/2023 Active Atorvastatin Calcium 20 MG Oral Tablet (Lipitor)Indication s:Dyslipidemia, goal LDL below 100 take 1 tablet by mouth once daily 90 Tablet 1 03/05/2023 Active Mometasone Furoate 50 MCG/ACT Nasal Suspension instill 2 sprays into each nostril once daily if needed for allergies 51 g 1 03/05/2023 Active Atorvastatin Calcium 20 MG Oral Tablet (Lipitor)Indication s:Dyslipidemia, goal LDL below 100 take 1 tablet by mouth once daily 90 Tablet 1 07/03/2022 03/05/20 23 Discontinued Mometasone Furoate 50 MCG/ACT Nasal Suspension instill 2 sprays into each nostril once daily if needed for allergies 51 g 1 07/03/2022 03/05/20 23 Discontinued documented as of this encounter (statuses as of 03/05/2023) Active Problems Problem Noted Date AGATHA (obstructive [...] as of this encounter (statuses as of 03/05/2023) Resolved Problems Problem Noted Date Resolved Date Deviated nasal septum 12/15/2019 10/03/2021 Rhinorrhea 12/15/2019 01/19/2020 Helicobacter pylori (H. pylori) infection 201503/27/2019 Overview: Treated in 11/2015 Coronary atherosclerosis of [place] coronary shantel ry 11/11/2010 02/06/2018 Old myocardial infarct 07/05/2010 1 UNILAT INGUINAL HERNIA- right 10/06/2009 ADVANCE DIRECTIVE INFORMATION 07/21/2009 Overview: Yes, Patient instructed to provide copy of advance directive for provider to review and to be scanned into Electronic Medical Record Dyslipidemia, goal LDL below 160 05/27/2008 05/13/2009 Overview: Per Lipid Taxonomy. Old myocardial infarct 06/05/2007 0 Beta-rsoi intolerance 09/27/2006 011 Overview: Heart rate in [...] determined 04/28/2009 Overview: Per Lipid Taxonomy Acute [place], anterior wall 05/31/20 10 12/27/2017 Benign neoplasm of prostate 06/2017 documented as of this encounter (statuses as of 03/05/2023) Immunizations Name Administration Dates Next Due COVID-19 [...] encounter Miscellaneous Notes * Telephone Encounter - Renan Yin, [facility] - 03/05/2023 11:00 AM EDTSigned Prescriptions: Disp Refills Atorvastatin Calcium 20 MG Oral Tablet (Li*90 Tab*1 Sig: take 1tablet by mouth once dailyAuthorizing Provider: Abe MUÑOZ User: RENAN YIN Mometasone Furoate 50 MCG/ACT Nasal Suspen*51 g 1 Sig: instill 2 sprays into each nostril once daily if needed for allergiesAuthorizing Provider: Abe MUÑOZ User: RENAN YIN documented in this encounter Plan of Treatment Upcoming Encounters Date Type Specialty Care Team Description 03/08/2023 Office Visit Cardiology Audrey Su CRNP [address] [place] [address] 03/12/2023 Office Visit Psychiatry Lopez, PARVIZ Morales [address] [facility] [place] [address] 03/14/2023 Office Visit Sleep Disorders Carla Montoya DO [address] [place] [address] 04/18/2023 Office Visit Dermatology Alexsandra Butts PA-C 200 [facility] [place] [phone] 10/10/2023 Nurse Only Ancillary Im, Nurse Annual Wellness [facility] [address] [facility] [place] [address] 10/10/2023 Office Visit Internal Medicine Betty Muñoz MD 200 [facility] [place] [address] Health Maintenance Due Date Last Done Comments Hepatitis C Screening 1968 Cologuard 02/22/1996 Fecal Occult Blood Test 02/22/1996 Sigmoidoscopy 02/22/1996 Zoster Vaccines (1 of 2) 2001 DTaP,Tdap,and Td Vaccines (1 - Tdap) 10/11/2007 10/10/2007 COVID-19 Vaccine (5 - Moderna series) 11/08/2021 09/13/2021, 03/29/2021, 07/30/2020, Additional history exists Depression [...] this encounter Medical Devices Implanted Type Area Shell Shop Supervisor Device Identifier Shelf Expiration Date Model / Serial / Lot Lens Intraoc 20.0 - [id number] - [id number] Implanted:Qty: 1 on 01/10/2022 by Woodrow Merlos MD at OR [facility] Left: Eye BAUSCH & LOMB 06/03/2026 [id number] / [id number] / [id number] Lens Intraoc 20.0 - [id number] - [id number] Implanted:Qty: 1 on 01/17/2022 by Woodrow Merlos MD at OR [facility] Right: Eye BAUSCH & LOMB 07/04/2026 [id number] / [id number] / [id number] documented as of this encounter Visit Diagnoses Diagnosis Dyslipidemia, goal LDL below 100 Other and unspecified hyperlipidemia documented in [...] the patient have Health Care Power of Dumper Bulk System? No Code Status History Code Status Date Activated Date Inactivated Comments No Code 01/10/2022 10:23 AM 01/10/2022 4:37 PM This o rder reflects the patients wishes and were consensually agreed upon. Question Answer Comments Discussion of Advance Directives occurred with: Patient Does the patient have a Living Will? No Does the patient have Health Care Power of Dumper Bulk System? No Care Teams Autism Tutor Relationship Specialty Start Date End Date Betty Muñoz MD [address] [place] [address] PCP - General Internal Medicine 01/31/21 documented as of this encounter
--- OUTSIDE RECORDS SUMMARY | 2023-05-05 09:09 | External Medical Summary | Summary of Care ---
Author Name Unknown Organization [facility] Address [address] [place] [address] Phone [phone] Care Team Providers Care Orthodontist Name Role Phone Betty Muñoz MD Primary Care Provider [phone] Reason for Referral * Evaluate & Treat - Unlimited Visits (Within 10 days (routine)) - Authorized Specialty Diagnoses / Procedures Referred By Adonis camacho Referred To Contact Ophthalmology Diagnoses Left retinal detachment Betty Muñoz MD [address] [place] [address] Referral ID Status Reason Start Date Expiration Date Visits Requested Visits Authorized [id number] Authorized Specialty Services Required 3 999 999 Question Answer Referral Priority Within 10 days (routine) Where should this appointment be scheduled? External Referring to: Outside [facility] staff will not schedule outside referrals Acknowledge Referring for: Ophthalmology Conditions Ophthalmology Conditions Other Ophthalmology (comment) - RD left per request Reason for Visit * Reason Onset Date Comments Referral 03/21/2023 Encounter Details Date Type Department Care Team (Late st Contact Info) Description 03/21/2023 Telephone General Internal Medicine Kaila [place] [facility] [place] [address] Betty Muñoz MD 200 [facility] [place] [address] Referral Allergies Active Allergy Reactions Criticality Noted Date Comments Iodinated Contrast Media Rash 10/06/2009 Iodine Rash 04/17/2001 documented as of this encounter (statuses as of 03/27/2023) Medications Medication Sig Dispensed Refills Start Date [...] evening. 45 Tablet 3 06/15/2022 Active Ipratropium [place] 0.03 % Nasal Solution 2 squirts each [...] as of this encounter (statuses as of 03/27/2023) Active Problems Problem Noted Date Diagnosed Date [...] as of this encounter (statuses as of 03/27/2023) Resolved Problems Problem Noted Date Diagnosed Date Resolved Date Deviated nasal septum 12/15/20192021 Rhinorrhea 12/15/2019 01/19/2020 Helicobacter pylori (H. pylori) infection 12/29/2015 03/27/2019 Overview: Treated in 11/2015 Coronary atherosclerosis of [place] coronary artery 11/11/2010 02/06/2018 Old myocardial infarct [...] determined 04/28/2009 Overview: Per Lipid Taxonomy Acute [place], anterior wall 05/05 Hypoglycemia 12/27/2017 Benign neoplasm of prostate 03/04/2018 documented as of this encounter (statuses as of 03/27/2023) Immunizations Name Administration Dates Next Due COVID-19 [...] encounter Miscellaneous Notes * Telephone Encounter - AGATHA Norris - 03/27/2023 1:19 PM EDT Referral faxed to [facility] 03/27 JAT * Telephone Encounter - Betty Muñoz MD - 03/27/2023 12:[address] fax * Telephone Encounter - AGATHA Bhatti - 03/21/2023 3:21 PM EDT Has the patient been seen for this problem? (Y/N)?: yes If No, an appt needs to be scheduled before a referral will be placed (exception: proceed with referral request if referral request is for a yearly routine appointment with speciality) Patient Name: Timothy Sorensen Patient Primary care provider: Betty Muñoz MD Does this need to be an insurance referral (Y/N)?: yes If Yes, does the insurance referral need to be placed into the [employer] system? Name of preferred specialist: Dr. 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 Date of visit: 03-19-23 Referral needs date of 03-19-23 for referral documented in this encounter Plan of Treatment Upcoming Encounters Date Type Department Care Team (Late st Contact Info) Description 04/03/2023 10:00 AM EDT Telemedicine Psychiatry, [place] [address] Shahla Lopez CRNP 200 [facility] [place], [place] [address] 04/18/2023 10:40 AM EST Office Visit Dermatology [facility] [address] [place] [address] Alexsandra Butts PA-C 200 [facility] [place] [phone] 05/07/2023 11:00 AM EST Office Visit Psychiatry, [facility] [address] [place] [address] Shahla Lopez CRNP 200 [facility] [place] [address] 10/10/2023 10:00 AM EDT Nurse Only Ancillary [facility] [address] [place] [address] Im, Nurse Annual Wellness [facility] 200 [facility] [place] [address] 10/10/2023 12:00 PM EDT Office Visit General Internal Medicine [facility] 200 [facility] [place] [address] Betty Muñoz MD 200 [facility] [place] [address] 01/31/2024 10:30 AM EDT Office Visit Allergy/Immunology [facility] [place] [address] [place] [address] Malgorzata Ingram PA-C 200 [facility] [place] [address] 03/21/2024 10:00 AM EDT Office Visit Sleep Disorders Ctr [facility] [place] [address] [place] [phone] Carla Montoya DO [address] [place] [address] Scheduled Referrals Name Type Priority Associated Diagnoses Orde r Schedule ADULT/PEDS OPHTHALMOLOGY/OPTOM ETRY REFERRAL OP Referral Within 10 days (routine) Left retinal detachment Ordered: 03/27/2023 Health Maintenance Due Date Last Done Comments [...] this encounter Medical Devices Implanted Type Area Chief Deputy Coroner Device Identifier Shelf Expiration Date Model / Serial / Lot Lens Intraoc 20.0 - [id number] - [id number] Implanted:Qty: 1 on 01/10/2022 by Woodrow Merlos MD at OR [facility] Left: Eye BAUSCH & LOMB 06/03/2026 [id number] / [id number] / [id number] Lens Intraoc 20.0 - [id number] - [id number] Implanted:Qty: 1 on 01/17/2022 by Woodrow Merlos MD at [facility] Right: Eye BAUSCH & LOMB 07/04/2026 [id number] / [id number] / [id number] documented as of this encounter Visit Diagnoses Diagnosis Left retinal detachment- Primary Unspecified retinal detachment documented in this encounter Advance Directives Latest Code Status on File Code Status Date Activated Date Inactivated Comments No Code 01/17/2022 12:53 PM 01/17/2022 7:09 PM This order reflects the patients wishes and were consensually agreed upon. Question Answer Comments Discussion of Advance Directives occurred with: Patient Does the patient have a Living Will? No Does the patient have Health Care Power of Header Up? No Code Status History Code Status Date Activated Date Inactivated Comments No Code 01/10/2022 10:23 AM 01/10/2022 4:37 PM This o rder reflects the patients wishes and were consensually agreed upon. Question Answer Comments Discussion of Advance Directives occurred with: Patient Does the patient have a Living Will? No Does the patient have Health Care Power of Header Up? No Care Teams Orthodontist Relationship Specialty Start Date End Date Betty Muñoz MD 200 [facility] [place] [address] PCP - General Internal Medicine 01/31/21 documented as of this encounter
--- OUTSIDE RECORDS SUMMARY | 2023-05-05 09:10 | External Medical Summary | Summary of Care ---
Author Name Unknown Organization [facility] Address [address] [place] [address] Phone [phone] Care Team Providers Care Surgical Endoscopist Name Role Phone Betty Muñoz MD Primary Care Provider [phone] Reason for Visit * Reason Comments Medication Management Follow Up Encounter Details Date Type Department Care Team Description 02/12/2023 Office Visit Psychiatry, Kaila Wellington [address] [facility] [place] [address] Shahla Lopez CRNP [address] [place] [address] Generalized anxiety disorder*; Panic disorder without agoraphobia; Recurrent major depressive disorder, in partial remission (HCC) Allergies Active Allergy Reactions Severity Noted Date Comments Iodinated Contrast Media Rash 10/06/2009 Iodine Rash 04/17/2001 documented as of this encounter (statuses as of 02/12/2023) Medications Medication Sig Dispensed Refills Start Date End Date Status VITAMIN B COMPLEX PO CAPS 1 cap daily 0 Active ASPIRIN EC 81 MG PO TBECIndications:Dy slipidemia, goal LDL below 100,Old myocardial infarct Take by mouth . 0 1 Active sterile water for irrigation SOLN 240 mL with hypertonic saline rinse PACK 2 Packet 2 Packets 2 times a day. 0 Active Vitamin D 25 MCG (1000 UT) Oral Tablet Take by mouth. 0 Active Magnesium Oxide 400 MG Oral TabletIndications: Migraine variant,Visual aura Take 1 Tab by mouth daily. St 01/31/2021 1 Tab 0 1 Active Metoprolol Succinate ER 25 MG Oral Tablet Extended Release 24 Hour (toPROL XL)Indications:Hyp ertrophic non-obstructive cardiomyopathy (HCC) Take 0.5 Tablets by mouth every evening. 45 Tablet 3 3 Active Atorvastatin Calcium 20 MG Oral Tablet (Lipitor)Indicatio ns:Dyslipidemia, goal LDL below 100 take 1 tablet by mouth once daily 90 Tablet 1 3 Active Mometasone Furoate 50 MCG/ACT Nasal Suspension instill 2 sprays into each nostril once daily if needed for allergies 51 g 1 3 Active Ipratropium Greer 0.03 % Nasal Solution 2 squirts each nostril 2-4 times daily. May precede with nasal saline 90 mL 3 3 Active Zoster Vac Recomb Adjuvanted 50 MCG/0.5ML Intramuscular Suspension Reconstituted (Shingrix)Indicati ons:Need for vaccination for zoster Inject 0.5 mL into a large muscle now and repeat dose in 60 to 180 days 1 Each 1 3 Active CPAP every night at bedtime. 0 Active traZODone HCl 50 MG Oral Tablet (Desyrel)Indicatio ns:Generalized anxiety disorder,Panic disorder without agoraphobia,Recurr ent major depressive disorder, in partial remission (HCC) Take 1 Tablet by mouth at bedtime. 30 Tablet 2 3 Active busPIRone HCl 10 MG Oral Tablet (Buspar)Indication s:Generalized anxiety disorder,Panic disorder without agoraphobia Take 1 Tablet by mouth in the morning and 1 Tablet at noon and 1 Tablet in the evening and 1 Tablet before bedtime. 120 Tablet 2 3 Active LORazepam 0.5 MG Oral Tablet (Ativan)Indication s:Generalized anxiety disorder,Panic disorder without agoraphobia Take 1 Tablet by mouth daily as needed for Anxiety. 30 Tablet 0 3 Active LORazepam 0.5 MG Oral Tablet (Ativan)Indication s:Generalized anxiety disorder,Panic disorder without agoraphobia Take 1 Tablet by mouth daily as needed for Anxiety. 5 Tablet 0 3 02/13/20 23 Discontinued(Ref ill) PARoxetine HCl 10 MG Oral Tablet (pAXil)Indications :Generalized anxiety disorder,Panic disorder without agoraphobia,Recurr ent major depressive disorder, in partial remission (HCC) Take 1 Tablet by mouth in the morning. 30 Tablet 1 3 02/13/20 23 Discontinued documented as of this encounter (statuses as of 02/12/2023) Active Problems Problem Noted Date AGATHA (obstructive [...] as of this encounter (statuses as of 02/12/2023) Resolved Problems Problem Noted Date Resolved Date Deviated nasal septum 12/15/2019 10/03/2021 Rhinorrhea 12/15/2019 01/19/2020 Helicobacter pylori (H. pylori) infection 201503/27/2019 Overview: Treated in 11/2015 Coronary atherosclerosis of [place] coronary shantel ry 11/11/2010 02/06/2018 Old myocardial [...] cyst - R eye 4/95 04/19/200206/2017 OTHER [id number]-[id number] 04/19/2002 03/04/2018 Other atopic dermatitis 04/19/2002 12/28/19 18 Overview: ICD-10 update of inactive term Other allergic rhinitis 04/17/2001 01/19/20 20 Overview: ICD-10 update of inactive term Dyslipidemia, goal to be determined 04/28/2009 Overview: Per Lipid Taxonomy Acute [place], anterior wall 05/31/20 10 Hypoglycemia 12/27/2017 Benign neoplasm of prostate 06/2017 documented as of this encounter (statuses as of 02/12/2023) Immunizations Name Administration Dates Next Due COVID-19 mRNA, LNP-s, No Pre serve, 2-Dose Series (Moderna) 03/29/2021,07/30/2020,07/02/2020 COVID-19, mRNA, LNP-s, PF, B ooster, 100mcg/0.5mg (Moderna) 09/13/2021 Pneumococcal Conjugate Vacc, 13 Valent (Prevnar) 12/18/2016 Pneumococcal Polysaccharide PPV23 (Pneumovax) 12/27/2017,05/21/2006 Season Influenza, Quad, PF, Adjuvanted, 65+ Yrs, IM (FLUAD) 02/14/2020 Seasonal Influenza, PF, 6 mo ns & Above, IM , (Flulaval) 03/01/2018 Seasonal Influenza, Quadriva lent Hd (Fluzone Hd) 04/08/2022,02/22/2021 Seasonal Influenza, Quadriva lent, No Preserve, IM [...] encounter Progress Notes * PARVIZ Perez - 02/12/2023 11:52 AM EDT OUTPATIENT PSYCHIATRY DIVISION OF PSYCHIATRY [facility] Office [address] [place] [id number] MEDICATION MANAGEMENT & PSYCHOTHERAPY RETURN VISIT NOTE Name: Timothy Sorensen JrJil : 1950 Date Seen: 02/12/2023 LOCATION FROM WHICH SERVICE IS DELIVERED [facility] PATIENT'S CURRENT PHYSICAL LOCATION [facility] The patient was seen and interviewed, and available records and data were reviewed today. SUBJECTIVE: Timothy Sorensen Jr. is a 72 year old male presenting for follow-up of [...] loss of appetite. He recently started seeing precision lens centerer and edger for unintended weight loss. These flushing episodes [...] TRIALS: Lexapro Zoloft Remeron Hydroxyzine Effexor Paxil RELEVANT PSYCHIATRIC, MEDICAL, FAMILY OR SOCIAL HISTORY/UPDATE: Current living situation: living with Marital status: Children: 0 Childhood/raised by: mother was single parent, as pt's father when pt was 9 years; his mother always made sure he had what he needed Siblings: 1 younger sister and 1 older sister History of past or current CYS involvement: no History of homelessness/group home living? 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 REVIEW OF SYSTEMS: unremarkable MENTAL STATUS EVALUATION: General Appearance: appropriately dressed, appropriately groomed, and fair eye contact Attitude/Behavior: cooperative, open and friendly, engaged Motor Behavior/Muscle Strength & Tone/Gait & Station: no abnormalities noted Speech: normal volume, tone Mood: anxious Affect: mood-congruent Thought Process: goal directed Thought Content/Perceptions: denies suicidal ideations, homicidal ideations, [...] Insight: fair Judgement: fair Impulse Control: fair Bee Suicide Severity Rating Scale Results 02/12/2023 12:24 [place] SUICIDE SEVERITY RATING SCALE (C-SSRS) Have [...] attitude and or beliefs and cultural and mandaeism beliefs that discourage suicide and support hopefulness Based on these risk and protective factors, this patient's safety risk is assessed to be minimal atthis time. Outpatient Adult Psychiatry Treatment Plan Treatment plan was developed on 09/11/22, treatment will continue to focus on goals below; Treatmentupdate will occur when clinically indicated or by 03/13/23. Patient's goals captured in patient's words: "Want to relax" Crisis Planning: What I can do if [...] Suicide and Crisis Lifeline - 988 and [employer] access to crisis numbers Patient/Family Received Copy of Treatment Plan: Patient has access to [employer] Signature Obtained on Treatment Plan: No Expected family or significant other involvement: Participate in visits, Offer Support and Crisis Support Patient strengths and facilitating factors to care:Recognizes need for change, Seeking help, Goal Oriented, Attempting to realize ones potential, Manages multiple demands in life, Has a purpose in life, Has hobbies, Good support system, Cultural/spiritual/mandaeism and community involvement, Accessto housing, Financial stability, [...] at bedtime. 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 Anxiety and panic [...] to promote control over anxious feelings. 09/11/22: eGnna continues to have episodes of anxiety when [...] per day noon,3-4 and 6 pm. Via [employer] message, pt had reported intolerable side effects [...] due to anxiety. Hehas stopped playing in [employer], is worried about general household tasks, and [...] anxiety/panic is stabilized, continue trazodone as Rx. Diagnosis: Generalized Anxiety Disorder Panic disorder Major depressive disorder, recurrent, in partial remission Rule out mild cognitive impairment Medications: Continue Ativan 0.25 mg to 0.5 mg daily PRN for severe anxiety/panic as noted above Continue trazodone to 50 mg at bedtime for sleep support and to augment antidepressant Decrease to Buspar 10 mg in AM, 10 mg noon, and 10 mg PM for anxiety I have reviewed the patient's controlled substance dispensing history in the Prescription Drug Monitoring Program in compliance with the [facility] regulations before prescribing a controlled substance. Laboratory/Diagnostics: none Counseling: Continue to offer psychotherapy utilizing as adjunct to evaluation, management and prescription of psychiatric medications. Patient to continue additional individual therapy. PCP/medical: Continue to follow up with primary [...] Assessment: Risk assessment was performed for Timothy Hernandez Franchesca Wells. This patient is being treated for mental [...] Supportive listening Problem solving Shahla Lopez, MSN, CHIEF MEDICAL DIRECTOR, PMHNP-BC [facility] Psychiatry [facility] Current Outpatient Medications Medication Sig Dispense Refill LORazepam 0.5 MG Oral Tablet (Ativan) Take 1 Tablet by mouth daily as needed for Anxiety. 30 Tablet0 VITAMIN B COMPLEX PO CAPS 1 cap daily ASPIRIN EC 81 MG PO TBEC Take by mouth . sterile water for irrigation SOLN 240 mL [...] by mouth every evening. 45 Tablet 3 Atorvastatin Calcium 20 MG Oral Tablet (Lipitor) take 1 tablet by mouth once daily 90 Tablet 1 Mometasone Furoate 50 MCG/ACT Nasal Suspension instill 2 sprays into each nostril once daily if needed for allergies 51 g 1 Ipratropium Greer 0.03 % Nasal Solution 2 squirts each nostril 2-4 times daily. May precede with nasal saline 90 mL 3 Zoster Vac Recomb Adjuvanted 50 MCG/0.5ML Intramuscular Suspension Reconstituted (Shingrix) Inject 0.5 mL into a large muscle now and repeat dose in 60 to 180 days 1 Each 1 CPAP every night at bedtime. traZODone HCl 50 MG Oral Tablet (Desyrel) Take 1 Tablet by mouth at bedtime. 30 Tablet 2 busPIRone HCl 10 MG Oral Tablet (Buspar) Take 1 Tablet by mouth in the morning and 1 Tablet at noonand 1 Tablet in the evening and 1 Tablet before bedtime. 120 Tablet 2 No current facility-administered medications for this visit. documented in this encounter Plan of Treatment Upcoming Encounters Date Type Specialty Care Team Description 02/23/2023 Office Visit Psychiatry Lopez, PARVIZ Morales [address] [place] [address] 03/08/2023 Office Visit Cardiology Audrey Su CRNP [address] [place] [address] 03/14/2023 Office Visit Sleep Disorders Carla Montoya DO [address] [place] [address] 04/18/2023 Office Visit Dermatology Alexsandra Butts PA-C [address] [place] [phone] 10/10/2023 Nurse Only Ancillary Im, Nurse Annual Wellness [facility] [address] [place] [address] 10/10/2023 Office Visit Internal Medicine Betty Muñoz MD [address] [place] [address] Health Maintenance Due Date Last Done Comments Hepatitis C Screening 1968 Cologuard 02/22/1996 Fecal Occult Blood Test 02/22/1996 Sigmoidoscopy 02/22/1996 Zoster Vaccines (1 of 2) 2001 DTaP,Tdap,and Td Vaccines (1 - Tdap) 10/11/2007 10/10/2007 COVID-19 Vaccine (5 - Moderna series) 11/08/2021 09/13/2021, 03/29/2021, 07/30/2020, Additional history exists Influenza Vaccine (FLU shot) (#1) 2023 04/08/2022, 02/22/2021, 02/14/2020, Additional history exists Depression Screening 10/05/2023 10/04/2022 Colonoscopy 2027 2017, 02/03, 02/20/2014, Additional history exists Colorectal Cancer Screening 2027 Lipid Panel 09/16/2027 09/15/2022, 10/03, 01/31/2021, Additional history exists AAA Screening Completed 01/23/2017 Pneumococcal Vaccine: 65+ Years Completed 12/27/2017, 12/18/2016, 05/21/2006 GARDASIL-HPV IMMUNIZATION SERIES Aged Out No longer eligible based on patient's age to complete this topic Hepatitis B Aged Out No longer eligi ble based on patient's age to complete this topic MENINGOCOCCAL (MENACTRA/MENVEO) Aged Out No longer eligible based on patient's age to complete this topic documented as of this encounter Medical Devices Implanted Type Area Sweeper Driver Device Identifier Shelf Expiration Date Model / Serial / Lot Lens Intraoc 20.0 - [id number] - [id number] Implanted:Qty: 1 on 01/10/2022 by Woodrow Merlos MD at OR [facility] Left: Eye BAUSCH & LOMB 06/03/2026 [id number] / [id number] / [id number] Lens Intraoc 20.0 - [id number] - [id number] Implanted:Qty: 1 on 01/17/2022 by Woodrow Merlos MD at OR [facility] Right: Eye BAUSCH & LOMB 07/04/2026 [id number] / [id number] / [id number] documented as of this encounter Visit Diagnoses [...] the patient have Health Care Power of Coat Operator? No Code Status History Code Status Date Activated Date Inactivated Comments No Code 01/10/2022 10:23 AM 01/10/2022 4:37 PM This o rder reflects the patients wishes and were consensually agreed upon. Question Answer Comments Discussion of Advance Directives occurred with: Patient Does the patient have a Living Will? No Does the patient have Health Care Power of Coat Operator? No Care Teams Surgical Endoscopist Relationship Specialty Start Date End Date Betty Muñoz MD [address] [place] [address], [place] [address] PCP - General Internal Medicine 01/31/21 documented as of this encounter
--- OUTSIDE RECORDS SUMMARY | 2023-05-05 09:10 | External Medical Summary | Summary of Care ---
Author Name Unknown Organization [facility] Address [address] [place] [address] Phone [phone] Care Team Providers Care Pool Servicer Name Role Phone Betty Muñoz MD Primary Care Provider [phone] Encounter Details Date Type Department Care Team Description 02/17/[address] [facility] [address] [place] [address] [place], Flu Shot [facility] Prac [address] [place] [address] Arrived Allergies Active Allergy Reactions Severity Noted Date Comments Iodinated Contrast Media Rash 10/06/2009 Iodine Rash 04/17/2001 documented as of this encounter (statuses as of 02/17/2023) Medications Medication Sig Dispensed Refills Start Date [...] every evening. 45 Tablet 3 06/15/2022 Active Atorvastatin Calcium 20 MG Oral Tablet (Lipitor)Indications: Dyslipidemia, goal LDL below 100 take 1 tablet by mouth once daily 90 Tablet 1 07/03/2022 Active Mometasone Furoate 50 MCG/ACT Nasal Suspension instill 2 sprays into each nostril once daily if needed for allergies 51 g 1 07/03/2022 Active Ipratropium [place] 0.03 % Nasal Solution 2 squirts each [...] Active traZODone HCl 50 MG Oral Tablet (Desyrel)Indications: Generalized anxiety disorder,Panic disorder without agoraphobia,Recurrent major depressive disorder, in partial remission (HCC) Take 1 Tablet by mouth at bedtime. 30 Tablet 2 12/25/2022 Active busPIRone HCl 10 MG Oral Tablet [...] for Anxiety. 30 Tablet 0 02/12/2023 Active documented as of this encounter (statuses as of 02/17/2023) Active Problems Problem Noted Date AGATHA (obstructive [...] as of this encounter (statuses as of 02/17/2023) Resolved Problems Problem Noted Date Resolved Date Deviated nasal septum 12/15/2019 10/03/2021 Rhinorrhea 12/15/2019 01/19/2020 Helicobacter pylori (H. pylori) infection 201503/27/2019 Overview: Treated in 11/2015 Coronary atherosclerosis of [place] coronary shantel ry 11/11/2010 02/06/2018 Old myocardial [...] determined 04/28/2009 Overview: Per Lipid Taxonomy Acute [place], anterior wall 05/31/20 10 12/27/2017 Benign neoplasm of prostate 06/2017 documented as of this encounter (statuses as of 02/17/2023) Immunizations Name Administration Dates Next Due COVID-19 [...] Office Visit Psychiatry Lopez, PARVIZ Morales [address] [facility] [place] [address] 03/08/2023 Office Visit Cardiology Audrey Su CRNP [address] [place] [address] 03/14/2023 Office Visit Sleep Disorders Carla Montoya DO [address] [place] [address] 04/18/2023 Office Visit Dermatology Alexsandra Butts PA-C [address] [facility] [place] [phone] 10/10/2023 Nurse Only Ancillary Im, Nurse Annual Wellness [facility] [address] [place] [address] 10/10/2023 Office Visit Internal Medicine Betty Muñoz MD [address] [facility] [place] [address] Health Maintenance Due Date Last Done Comments Hepatitis C Screening 1968 Cologuard 02/22/1996 Fecal Occult Blood Test 02/22/1996 Sigmoidoscopy 02/22/1996 Zoster Vaccines (1 of 2) 2001 DTaP,Tdap,and Td Vaccines (1 - Tdap) 10/11/2007 10/10/2007 COVID-19 Vaccine (5 - Moderna series) 11/08/2021 09/13/2021, 03/29/2021, 07/30/2020, Additional history exists Influenza Vaccine (FLU shot) (#1) 2023 02/17/2023, 04/08/2022, 02/22/2021, Additional history exists Depression Screening 10/05/2023 10/04/2022 [...] this encounter Medical Devices Implanted Type Area Propulsion Machinery Service Engineer Device Identifier Shelf Expiration Date Model / Serial / Lot Lens Intraoc 20.0 - [id number] - [id number] Implanted:Qty: 1 on 01/10/2022 by Woodrow Merlos MD at OR [facility] Left: Eye BAUSCH & LOMB 06/03/2026 [id number] / [id number] / [id number] Lens Intraoc 20.0 - [id number] - [id number] Implanted:Qty: 1 on 01/17/2022 by Woodrow Merlos MD at OR [facility] Right: Eye BAUSCH & LOMB 07/04/2026 [id number] / [id number] / [id number] documented as of this encounter Advance Directives [...] the patient have Health Care Power of Popcorn Machine Operator? No Code Status History Code Status Date Activated Date Inactivated Comments No Code 01/10/2022 10:23 AM 01/10/2022 4:37 PM This o rder reflects the patients wishes and were consensually agreed upon. Question Answer Comments Discussion of Advance Directives occurred with: Patient Does the patient have a Living Will? No Does the patient have Health Care Power of Popcorn Machine Operator? No Care Teams Pool Servicer Relationship Specialty Start Date End Date Betty Muñoz MD [address] [place] [address], [place] [address] PCP - General Internal Medicine 01/31/21 documented as of this encounter
--- OUTSIDE RECORDS SUMMARY | 2023-05-05 09:10 | External Medical Summary | Summary of Care ---
Author Name Unknown Organization [facility] Address [address] [place] [address] Phone [phone] Care Team Providers Care Granite Polisher Apprentice Name Role Phone Betty Muñoz MD Primary Care Provider [phone] Reason for Visit * Reason Onset Date Comments Medication Refill 01/17/2023 Encounter Details Date Type Department Care Team Description 01/17/2023 Refill [facility] [address] [place] [address] Shahla Lopez CRNP [address] [place], [place] [id number] Generalized anxiety disorder; Panic disorder without agoraphobia; Recurrent major depressive disorder, in partial remission (HCC) Allergies Active Allergy Reactions Severity Noted Date Comments Iodinated Contrast Media Rash 10/06/2009 Iodine Rash 04/17/2001 documented as of this encounter (statuses as of 01/17/2023) Medications Medication Sig Dispensed Refills Start Date [...] for allergies 51 g 1 07/03/2022 Active LORazepam 0.5 MG Oral Tablet (Ativan)Indications: Generalized anxiety disorder,Panic disorder without agoraphobia Take 1 Tablet by mouth daily as needed for Anxiety. 5 Tablet 0 07/24/2022 Active Ipratropium [place] 0.03 % Nasal Solution 2 squirts each [...] Active traZODone HCl 50 MG Oral Tablet (Desyrel)Indications :Generalized anxiety disorder,Panic disorder without agoraphobia,Recurren t [...] before bedtime. 120 Tablet 2 01/17/2023 Active busPIRone HCl 30 MG Oral TabletIndications:Ge neralized anxiety disorder,Panic disorder without agoraphobia,Recurren t major depressive disorder, in partial remission (HCC) Take 1 Tablet by mouth in the morning and 1 Tablet in the evening. 60 Tablet 1 12/08/2022 3 Discontinue d(Medicatio n/Dose Changed) documented as of this encounter (statuses as of 01/17/2023) Active Problems Problem Noted Date AGATHA (obstructive [...] as of this encounter (statuses as of 01/17/2023) Resolved Problems Problem Noted Date Resolved Date Deviated nasal septum 12/15/2019 10/03/2021 Rhinorrhea 12/15/2019 01/19/2020 Helicobacter pylori (H. 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 documented as of this encounter (statuses as of 01/17/2023) Immunizations Name Administration Dates Next Due COVID-19 mRNA, LNP-s, No Pre serve, 2-Dose Series (Moderna) 03/29/2021,07/30/2020,07/02/2020 Covid-19 Mrna, Lnp-s, No Pre serve, Booster (Moderna) 09/13/2021 Pneumococcal Conjugate Vacc, 13 Valent (Prevnar) 12/18/2016 Pneumococcal Polysaccharide PPV23 (Pneumovax) 12/27/2017,05/21/2006 Seasonal Influenza, Quadriva lent Hd (Fluzone Hd) 04/08/2022,02/22/2021 Seasonal Influenza, Quadriva lent, No Preserve, 6 Mons & Above, IM 03/01/2018 Seasonal Influenza, Quadriva lent, No Preserve, Adjuvanted, 65+ Yrs, IM 02/14/2020 Seasonal Influenza, Quadriva lent, No Preserve, IM [...] encounter Miscellaneous Notes * Telephone Encounter - PARVIZ Perez - 01/17/2023 5:44 PM EDTSigned Prescriptions: Disp Refills busPIRone HCl 10 MG Oral Tablet (Buspar) 120 Ta*2 Sig: Take 1 Tablet by mouth in the morning and 1 Tablet at noon and 1 Tablet in the evening and 1 Tablet before bedtime.Authorizing Provider: SHAHLA LOPEZ * Telephone Encounter - Meaghan Carr RN - 01/17/2023 3:00 PM EDT Pharmacy FAX for refill on Buspirone 10mg. Medication was last filled on 12/08/22 with 1 refills. Patient last seen on 12/08/22 with return appointment scheduled for 01/22/23. Patient had 0 cancelled appointments and 0 NO SHOW appointments. documented in this encounter Plan of Treatment Upcoming Encounters Date Type Specialty Care Team Description 01/22/2023 Office Visit Psychiatry Lopez, PARVIZ Morales [address] [facility] [place] [address] 01/30/2023 Office Visit Allergy & Immunology Malgorzata Ingram PA-C [address] [facility] [place] [address] 02/06/2023 Office Visit Cardiology David Odell MD [address] [place] [address] 03/14/2023 Office Visit Sleep Disorders Carla Montoya DO [address] [place] [address] 04/18/2023 Office Visit Dermatology Alexsandra Butts PA-C [address] [facility] [place] [address] 10/10/2023 Nurse Only Ancillary Im, Nurse Annual Wellness [facility] [address] [facility] [place] [address] 10/10/2023 Office Visit Internal Medicine Betty Muñoz MD [address] [facility] [place] [address] Health Maintenance Due Date Last Done Comments Hepatitis C Screening 1968 Cologuard 02/22/1996 Fecal Occult Blood Test 02/22/1996 Sigmoidoscopy 02/22/1996 Zoster Vaccines (1 of 2) 2001 DTaP,Tdap,and Td Vaccines (1 - Tdap) 10/11/2007 10/10/2007 COVID-19 Vaccine (5 - Moderna series) 11/08/2021 09/13/2021, 03/29/2021, 07/30/2020, Additional history exists Influenza Vaccine (FLU shot) (#1) 2023 04/08/2022, 02/22/2021, 02/14/2020, Additional history exists Depression Screening, Annual for Pts 12 and Over 10/05/2023 10/04/2022 Colonoscopy 2027 2017, 02/03, 02/20/2014, [...] this encounter Medical Devices Implanted Type Area Tank Farm Operator Device Identifier Shelf Expiration Date Model / Serial / Lot Lens Intraoc 20.0 - [id number] - [id number] Implanted:Qty: 1 on 01/10/2022 by Woodrow Merlos MD at [facility] Left: Eye [employer] LOMB 06/03/2026 [id number] / [id number] / [id number] Lens Intraoc 20.0 - [id number] - [id number] Implanted:Qty: 1 on 01/17/2022 by Woodrow Merlos MD at OR [facility] Right: Eye BAUSCH & LOMB 07/04/2026 [id number] / [id number] / [id number] documented as of this encounter Visit Diagnoses Diagnosis Generalized anxiety disorder Panic disorder without agoraphobia Recurrent major depressive [...] the patient have Health Care Power of Membership Director? No Code Status History Code Status Date Activated Date Inactivated Comments No Code 01/10/2022 10:23 AM 01/10/2022 4:37 PM This o rder reflects the patients wishes and were consensually agreed upon. Question Answer Comments Discussion of Advance Directives occurred with: Patient Does the patient have a Living Will? No Does the patient have Health Care Power of Membership Director? No Care Teams Granite Polisher Apprentice Relationship Specialty Start Date End Date Betty Muñoz MD [address] [place] [address] PCP - General Internal Medicine 01/31/21 documented as of this encounter
--- OUTSIDE RECORDS SUMMARY | 2023-05-05 09:10 | External Medical Summary | Summary of Care ---
Author Name Unknown Organization [facility] Address [address] [place] [address] Phone [phone] Care Team Providers Care Dock Worker Name Role Phone Betty Muñoz MD Primary Care Provider [phone] Reason for Visit * Reason Comments Allergy Return Encounter Details Date Type Department Care Team Description 01/30/2023 Office Visit Allergy/Immunology K[place]a [place] [address] [facility] [place] [address] Malgorzata Ingram PA-C [address] [facility] [place] [address] Mixed rhinitis*; Allergic rhinitis due to dust mite; Non-seasonal allergic rhinitis due to animal hair and dander Allergies Active Allergy Reactions Severity Noted Date Comments Iodinated Contrast Media Rash 10/06/2009 Iodine Rash 04/17/2001 documented as of this encounter (statuses as of 01/30/2023) Medications Medication Sig Dispensed Refills Start Date [...] 07/03/2022 Active LORazepam 0.5 MG Oral Tablet (Ativan)Indications:G eneralized anxiety disorder,Panic disorder without agoraphobia Take 1 Tablet by mouth daily as needed for Anxiety. 5 Tablet 0 07/24/2022 Active Ipratropium [place] 0.03 % Nasal Solution 2 squirts each [...] before bedtime. 120 Tablet 2 01/17/2023 Active PARoxetine HCl 10 MG Oral Tablet (pAXil)Indications:Ge neralized anxiety disorder,Panic disorder without agoraphobia,Recurrent major depressive disorder, in partial remission (HCC) Take 1 Tablet by mouth in the morning. 30 Tablet 1 01/22/2023 Active documented as of this encounter (statuses as of 01/30/2023) Active Problems Problem Noted Date AGATHA (obstructive [...] as of this encounter (statuses as of 01/30/2023) Resolved Problems Problem Noted Date Resolved Date Deviated nasal septum 12/15/2019 10/03/2021 Rhinorrhea 12/15/2019 01/19/2020 Helicobacter pylori (H. pylori) infection 201503/27/2019 Overview: Treated in 11/2015 Coronary atherosclerosis of [place] coronary shantel ry 11/11/2010 02/06/2018 Old myocardial [...] Taxonomy Acute [place], anterior wall 05/31/20 10 12/27/2017 Benign neoplasm of prostate 06/2017 documented as of this encounter (statuses as of 01/30/2023) Immunizations Name Administration Dates Next Due COVID-19 [...] Sign Reading Time Taken Comments Blood Pressure 118/80 01/30/2023 1:51 PM EDT Pulse 54 01/30/2023 1:51 PM EDT Temperature - - Respiratory Rate 16 01/30/2023 1:51 PM EDT Oxygen Saturation - - Inhaled Oxygen Concentration - - Weight 70.4 kg (155 lb 4.8 oz) 01/30/2023 1:51 P M EDT Height - - Body Mass Index 23.27 10/17/2022 9:48 AM EDT documented in this encounter Progress Notes * Malgorzata Ingram PA-C - 01/30/2023 2:31 PM EDT SUBJECTIVE: Genna is a pleasant 72 year old here today with his , Ann for follow-up for his mixed rhinitis and deviated nasal septum. He reports he is doing well. He is using a nasal saline rinse followed by Atrovent and Nasonex in the morning. He then uses another nasal saline rinse with Atrovent in the evening. Occasionally he will use Atrovent throughout the day. He finds this regimen very effective at controlling his symptoms. He denies a history of eczema, asthma, food allergies. He denies any recent antibiotic use, upper respiratory infections, sinus infections. Patient Active Problem List Diagnosis Code DYSLIPIDEMIA, [...] (HCC) F33.41 AGATHA (obstructive sleep apnea) G47.33 Past Medical History: Diagnosis Date Acute [place], anterior wall (HCC) [facility] ?embolus cath Benign neoplasm of prostate [...] term Migraine variant 09/24/2018 Sleep apnea, obstructive Past Surgical History: Procedure Laterality Date COLONOSCOPY 12/09/01 Repeat 10 years COLONOSCOPY, DIAGNOSTIC (RECTUM) 01/08/09 hemorrhoids COLONOSCOPY, DIAGNOSTIC (RECTUM) N/A 2017 COLONOSCOPY FLEXIBLE PROXIMAL DIAGNOSTIC performed by Corey Espinosa DO at ENDOSCOPY [facility] COLORECTAL CANCER SCREEN;W/FLE hemorrhoids EGD, FLEXIBLE, DIAGNOSTIC 11/18/2015 + H pylori/ESOPHAGOGASTRODUODENOSCOPY (EGD), FLEXIBLE, TRANSORAL, DIAGNOSTIC performed by Salomon Steele MD at ENDOSCOPY [facility] HEMORRHOIDECTOMY, INTERNAL, 2 + COLUMNS N/A 10/20/2016 HEMORRHOIDECTOMY EXTERNAL AND INTERNAL COMPLEX performed by Marian Andres MD at OR [facility] HEMORRHOIDECTOMY, SIMPLE, 1 COLUMN 04/20/09 Hemorrhoidectomy with LigaSure 04/20/09, [facility], Dr. Blake MISCELLANEOUS ORDER ([facility] ONLY) heart cath- [place] OTHER 02/2006 Left inguinal hernia repair - Dr. Blake REMOVAL OF APPENDIX 1968 [facility] REMOVE CATARACT, INSERT LENS PROSTH Left 01/10/2022 LEFT EXTRACAPSULAR CATARACT REMOVAL WITH INTRAOCULAR LENS performed by Woodrow Merlos MD at [facility] REMOVE CATARACT, INSERT LENS PROSTH Right 01/17/2022 Right EXTRACAPSULAR CATARACT REMOVAL WITH INTRAOCULAR LENS performed by Woodrow Merlos MD at [facility] REPAIR INITIAL INGUINAL HERNIA REDUCIBLE AGE 5 OR MORE 10/12/2009 Right Inguinal hernia Repair, with mesh, cord lipoma [facility] [place] Dr Blake 10/12/2009 No history of prior ENT surgery. Current Outpatient Medications Medication Sig Dispense Refill VITAMIN B COMPLEX PO CAPS 1 cap daily ASPIRIN EC 81 MG PO TBEC Take by mouth . Vitamin D 25 MCG (1000 UT) Oral [...] as needed for Anxiety. 5 Tablet 0 Ipratropium [place] 0.03 % Nasal Solution 2 squirts each nostril 2-4 times daily. May precede with nasal saline 90 mL 3 traZODone HCl 50 MG Oral Tablet (Desyrel) Take 1 Tablet by mouth at bedtime. 30 Tablet 2 busPIRone HCl 10 MG Oral Tablet (Buspar) Take 1 Tablet by mouth in the morning and 1 Tablet at noonand 1 Tablet in the evening and 1 Tablet before bedtime. 120 Tablet 2 PARoxetine HCl 10 MG Oral Tablet (pAXil) Take 1 Tablet by mouth in the morning. 30 Tablet 1 sterile water for irrigation SOLN 240 mL with hypertonic saline rinse PACK 2 Packet 2 Packets 2 times a day. Zoster Vac Recomb Adjuvanted 50 MCG/0.5ML Intramuscular Suspension Reconstituted (Shingrix) Inject 0.5 mL into a large muscle now and repeat dose in 60 to 180 days 1 Each 1 CPAP every night at bedtime. No current facility-administered medications for this visit. Review of patient's allergies indicates: Allergen Reactions Iodinated Contrast Media Rash Iodine Rash Family History Problem Relation Age of Onset Cancer Mother Other (Other) Mother denies any family history of skin diseases or skin cancer Hypertension Father Allergies Sister allergic rhinitis on AIT Social History Tobacco Use Smoking status: Former Packs/day: 2.00 Years: 20.00 Pack years: 40.00 Types: Cigarettes Quit date: 01/02/1993 Years since quittin.0 Smokeless tobacco: Former Tobacco comments: no passive smoke Vaping Use Vaping Use: Never used Substance Use Topics Alcohol use: No Drug use: No Environment/Occupation/Activities of Daily Living: He lives in a 1 story house. It has gas heat and central air conditioning. Has a finished basement which is dry. No current indoor pets. Bedroom is 1st floor and hardwood. 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 BP 118/80 (BP Site: Right Arm, BP Position: Sitting) | Pulse 54 | Resp 16 | Wt 70.4 kg (155 lb 4.8 oz) | BMI 23.27 kg/m | BSA 1.84 m PHYSICAL EXAM: No Acute Distress: Conjunctiva: Normal TM's: Clear Nose: Pale mucosa, Mild inferior turbinate edema, no polyps, no mucopus Oropharynx: Mild erythema and cobblestoning, no lesions or exudates. Neck: No significant adenopathy Lungs: Clear to A&P, no wheezes Cor: RRR, no murmur Skin: No lesions atopic dermatitis; no urticaria, angioedema OBJECTIVE DATA: Allergy skin test 01/19/20 revealed positive reaction to cat. All other environmental skin tests were negative in the face of adequate positive histamine controls. Component Latest Ref Rng & Units 12/22/2019 IGE 0 - 87 kU/L 423.0 (H) NOVEMBER GRASS <0.1 kU/L <0.10 PORFIRIO <0.1 kU/L <0.10 COMMON RAGWEED <0.1 kU/L <0.10 PIGWEED <0.1 kU/L <0.10 OAK <0.1 kU/L <0.10 ELM <0.1 kU/L <0.10 MITE-FARINAE <0.1 kU/L 17.20 (H) MITE-PTERONYSSINUS <0.1 kU/L 9.56 (H) ALTERNARIA <0.1 kU/L <0.10 CAT EPITHELIUM <0.1 kU/L <0.10 DOG EPITHELIUM <0.1 kU/L <0.10 DOG DANDER <0.1 kU/L <0.10 CLADOSPORIUM <0.1 kU/L <0.10 QUINONEZ'S QUARTERS <0.1 kU/L <0.10 PENICILLIUM NOTATUM <0.1 kU/L <0.10 BIRCH <0.1 kU/L <0.10 ASPERGILLUS <0.1 kU/L <0.10 Review of recent MRI of the brain 06/19/19 revealed nasal septal deviation to the right. Paranasal sinuses and mastoid air cells were clear. ASSESSMENT: ICD-10-CM 1. Mixed rhinitis J31.0 2. Allergic rhinitis due to dust mite J30.89 3. Non-seasonal allergic rhinitis due to animal hair and dander J30.81 PLAN: Avoidance measures regarding dust mites, animal dander and nonallergic triggers should be avoided. His nasal symptoms continue to be well controlled. He will continue nasal saline followed by ipratropium 2 sprays in each nostril Nasonex 2 sprays in each nostril in the morning. In the evening he will repeat the nasal saline and ipratropium. He may use the ipratropium 3 times a day if needed. Allergy immunotherapy would be a consideration for the dust mite allergic component of his chronic rhinitis. Unfortunately, he is on beta-rosi therapy which is contraindicated for patients on allergy immunotherapy. Malgorzata Ingram PA-C Allergy and Immunology [facility] Supervising Physician: Silvio Castro MD Type of Supervision: Direct I spent a total of 20-29 minutes (exact time 22 mins) on the date of service in preparation, delivery, and documentation of the care provided to Timothy Sorensen Jr. excluding any time spent in the performance of separately billed services. (This note was completed using the dictation program Fluency Direct. As such, there may be misspellings, word substitutions, or other variations that should not change the essence of the clinical content of this encounter note.If there is need for further clarification, please direct questions to the provider listed above.) documented in this encounter Nursing Notes * Lucinda Aguilar LPN - 01/30/2023 1:49 PM EDT The pt has been properly identified by confirmation of name and date of . Pt here for return visit. documented in this encounter Plan of Treatment Upcoming Encounters Date Type Specialty Care Team Description 02/06/2023 Office Visit Cardiology David Odell MD [address] [place] [id number] 02/12/2023 Office Visit Psychiatry Lopez, PARVIZ Morales [address] [facility] [place] [address] 03/14/2023 Office Visit Sleep Disorders Carla Montoya DO [address] [place] [address] 04/18/2023 Office Visit Dermatology Alexsandra Butts PA-C [address] [facility] [place] [address] 10/10/2023 Nurse Only Ancillary Im, Nurse Annual Wellness [facility] [address] [facility] [place] [address] 10/10/2023 Office Visit Internal Medicine Betty Muñoz MD [address] [place] [address] Health Maintenance Due Date Last Done Comments [...] this encounter Medical Devices Implanted Type Area Licensed Physical Therapist Device Identifier Shelf Expiration Date Model / Serial / Lot Lens Intraoc 20.0 - [id number] - [id number] Implanted:Qty: 1 on 01/10/2022 by Woodrow Merlos MD at OR [facility] Left: Eye [employer]CH [employer] LOMB 06/03/2026 [id number] / [id number] / [id number] Lens Intraoc 20.0 - [id number] - [id number] Implanted:Qty: 1 on 01/17/2022 by Woodrow Merlos MD at OR [facility] Right: Eye BAUSCH & LOMB 07/04/2026 [id number] / [id number] / [id number] documented as of this encounter Visit Diagnoses Diagnosis Mixed rhinitis- Primary Chronic rhinitis Allergic rhinitis due to dust mite Non-seasonal allergic rhinitis due to animal hair and dander documented in this encounter Advance Directives Latest Code Status on File Code Status Date Activated Date Inactivated Comments No Code 01/17/2022 12:53 PM 01/17/2022 7:09 PM This order reflects the patients wishes and were consensually agreed upon. Question Answer Comments Discussion of Advance Directives occurred with: Patient Does the patient have a Living Will? No Does the patient have Health Care Power of Tractor Operator Laser Leveling? No Code Status History Code Status Date Activated Date Inactivated Comments No Code 01/10/2022 10:23 AM 01/10/2022 4:37 PM This o rder reflects the patients wishes and were consensually agreed upon. Question Answer Comments Discussion of Advance Directives occurred with: Patient Does the patient have a Living Will? No Does the patient have Health Care Power of Tractor Operator Laser Leveling? No Care Teams Dock Worker Relationship Specialty Start Date End Date Betty Muñoz MD [address] [place] [address] PCP - General Internal Medicine 01/31/21 documented as of this encounter"
--- OUTSIDE RECORDS SUMMARY | 2023-05-05 09:10 | External Medical Summary | Summary of Care ---
Author Name Unknown Organization [facility] Address [address] [place] [address] Phone [phone] Care Team Providers Care Disease Case Manager Rn Name Role Phone Betty Muñoz MD Primary Care Provider [phone] Encounter Details Date Type Department Care Team Description 02/27/2023 Orders Only Psychiatry, [place] [address] [facility] [place] [address] LopezShahla CRNP [address] [facility] [place] [address] Patient Medical Record Information Allergies Active Allergy Reactions Severity Noted Date Comments Iodinated Contrast Media Rash 10/06/2009 Iodine Rash 04/17/2001 documented as of this encounter (statuses as of 02/27/2023) Medications Medication Sig Dispensed Refills Start Date [...] allergies 51 g 1 07/03/2022 Active Ipratropium [place] 0.03 % Nasal Solution 2 squirts each [...] at bedtime. 30 Tablet 1 02/23/2023 Active documented as of this encounter (statuses as of 02/27/2023) Active Problems Problem Noted Date AGATHA (obstructive [...] as of this encounter (statuses as of 02/27/2023) Resolved Problems Problem Noted Date Resolved Date Deviated nasal septum 12/15/2019 10/03/2021 Rhinorrhea 12/15/2019 01/19/2020 Helicobacter pylori (H. pylori) infection 201503/27/2019 Overview: Treated in 11/2015 Coronary atherosclerosis of [place] coronary shantel ry 11/11/2010 02/06/2018 Old myocardial [...] Per Lipid Taxonomy Acute [place], anterior wall 05/31/20 10 12/27/2017 Benign neoplasm of prostate 06/2017 documented as of this encounter (statuses as of 02/27/2023) Immunizations Name Administration Dates Next Due COVID-19 [...] encounter Progress Notes * PARVIZ Perez - 02/27/2023 10:13 PM EDT Patient Medical Record Information Timothy Sorensen : 1950 Clinician: Shahla Lopez Confirmed: 02/28/2023 2:13 AM Psychotropic ICD-10 Code(s) F41.1 - Generalized anxiety disorder F41.0 - Panic disorder [episodic paroxysmal anxiety] F33.41 - Major depressive disorder, recurrent, in partial remission Failed Medications Lexapro ( escitalopram ), Zoloft ( sertraline ), Remeron ( mirtazapine ), hydroxyzine, Effexor ( venlafaxine ), Paxil ( paroxetine ), Desyrel ( trazodone ), Ativan ( lorazepam ), BuSpar ( buspirone ) Treatment Plan [x]I'm considering augmenting therapy with a new medication or starting/switching to a new medication [x]I'm considering a dosage adjustment to currently prescribed medication(s) Required for Medicare/Medicare Advantage Coverage List all the [facility] medications that you are considering for augmentation or starting/switching to Neurontin ( gabapentin ), Viibryd ( vilazodone ), Abilify ( aripiprazole ), Trintellix ( vortioxetine ), Elavil ( amitriptyline ) List all the [facility] medications that you are considering for dosage adjustment Remeron ( mirtazapine ), BuSpar ( buspirone ) Have you considered non-genetic factors to make a preliminary drug selection, including a personalized medication decision based on the patient's diagnosis, the patient's other medical conditions, other medications the patient is taking, professional judgment, clinical science and basic science pertinent to the drug (e.g. mechanism of action, side effects), the patient's past medical history, andwhen pertinent, family history and the patient's preferences and values? [x] Yes [ ] No documented in this encounter Plan of Treatment Upcoming Encounters Date Type Specialty Care Team Description 03/08/2023 Office Visit Cardiology Audrey Su CRNP [address] [place] [address] 03/12/2023 Office Visit Psychiatry Shahla Lopez CRNP [address] [facility] [place] [address] 03/14/2023 Office Visit Sleep Disorders Carla Montoya DO [address] [place] [address] 04/18/2023 Office Visit Dermatology Alexsandra Butts PA-C [address] [facility] [place] [address] 10/10/2023 Nurse Only Ancillary Im, Nurse Annual Wellness [facility] [address] [place] [address] 10/10/2023 Office Visit Internal Medicine Betty Muñoz MD [address] [place] [address] Health Maintenance Due Date Last Done Comments [...] this encounter Medical Devices Implanted Type Area Environmental Marketing Representative Device Identifier Shelf Expiration Date Model / Serial / Lot Lens Intraoc 20.0 - [id number] - [id number] Implanted:Qty: 1 on 01/10/2022 by oWodrow Merlos MD at [facility] Left: Eye [employer] 06/03/2026 [id number] / [id number] / [id number] Lens Intraoc 20.0 - [id number] - [id number] Implanted:Qty: 1 on 01/17/2022 by Woodrow Merlos MD at [facility] Right: Eye [employer] 07/04/2026 [id number] / [id number] / [id number] documented as of this encounter Advance Directives [...] the patient have Health Care Power of Metal Fabricating Shop Helper? No Code Status History Code Status Date Activated Date Inactivated Comments No Code 01/10/2022 10:23 AM 01/10/2022 4:37 PM This o rder reflects the patients wishes and were consensually agreed upon. Question Answer Comments Discussion of Advance Directives occurred with: Patient Does the patient have a Living Will? No Does the patient have Health Care Power of Metal Fabricating Shop Helper? No Care Teams Disease Case Manager Rn Relationship Specialty Start Date End Date Betty Muñoz MD [address] [place] [id number] PCP - General Internal Medicine 01/31/21 documented as of this encounter
--- OUTSIDE RECORDS SUMMARY | 2023-05-05 09:10 | External Medical Summary | Summary of Care ---
Author Name Unknown Organization [facility] Address [address] [place] [address] Phone [phone] Care Team Providers Care Plaster Maker Name Role Phone Betty Muñoz MD Primary Care Provider [phone] Reason for Visit * Reason Onset Date Comments Medication Refill 12/25/2022 Encounter Details Date Type Department Care Team Description 12/25/2022 Refill Psychiatry, [facility] [address] [facility] [place] [address] Shahla Lopez CRNP [address] [facility] [place] [address] Generalized anxiety disorder; Panic disorder without agoraphobia; Recurrent major depressive disorder, in partial remission (HCC) Allergies Active Allergy Reactions Severity Noted Date Comments Iodinated Contrast Media Rash 10/06/2009 Iodine Rash 04/17/2001 documented as of this encounter (statuses as of 12/25/2022) Medications Medication Sig Dispensed Refills Start Date [...] Anxiety. 5 Tablet 0 07/24/2022 Active Ipratropium [place] 0.03 % Nasal Solution 2 squirts each [...] night at bedtime. 0 Active busPIRone HCl 30 MG Oral TabletIndications:Ge neralized anxiety disorder,Panic disorder without agoraphobia,Recurren t major depressive disorder, in partial remission (HCC) Take 1 Tablet by mouth in the morning and 1 Tablet in the evening. 60 Tablet 1 12/08/2022 Active traZODone HCl 50 MG Oral Tablet (Desyrel)Indications :Generalized anxiety disorder,Panic disorder without agoraphobia,Recurren t major depressive disorder, in partial remission (HCC) Take 1 Tablet by mouth at bedtime. 30 Tablet 2 12/25/2022 Active traZODone HCl 50 MG Oral Tablet (Desyrel)Indications :Generalized anxiety disorder,Panic disorder without agoraphobia,Recurren t major depressive disorder, in partial remission (HCC) Take 1 Tablet by mouth at bedtime. 30 Tablet 2 09/11/2022 3 Discontinue d(Refill) Venlafaxine HCl ER 37.5 MG Oral Capsule Extended Release 24 HourIndications:Gene ralized anxiety disorder,Panic disorder without agoraphobia,Recurren t major depressive disorder, in partial remission (HCC) Take 2 Capsules by mouth in the morning. Since 10/02/22--being weaned off by Marko. 30 Capsule 0 10/09/2022 3 Discontinue d(Patient preference/ discontinua tion) documented as of this encounter (statuses as of 12/25/2022) Active Problems Problem Noted Date AGATHA (obstructive [...] as of this encounter (statuses as of 12/25/2022) Resolved Problems Problem Noted Date Resolved Date Deviated nasal septum 12/15/2019 10/03/2021 Rhinorrhea 12/15/2019 01/19/2020 Helicobacter pylori (H. 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 Authorizing Provider: SHAHLA LOPEZ * Telephone Encounter - Columba Lozano LPN - 12/25/2022 3:46 PM EDT Patient calling for refill on Trazodone. Medication was last filled on 09/11/2022 with 2 refills. Patient last seen on 12/08/2022 with return appointment scheduled for 01/22/2023. Patient had 0 cancelledappointments and 0 NO SHOW appointments. documented in this encounter Plan of Treatment Upcoming Encounters Date Type Specialty Care Team Description 01/22/2023 Office Visit Psychiatry Shahla Lopez CRNP [address] [place] [address] 01/30/2023 Office Visit Allergy & Immunology Malgorzata Ingram PA-C [address] [place] [address] 02/06/2023 Office Visit Cardiology David Odell MD [address] [place] [address] 03/14/2023 Office Visit Sleep Disorders Carla Montoya DO [address] [place] [address] 04/18/2023 Office Visit Dermatology Alexsandra Butts PA-C [address] [place] [phone] 10/10/2023 Nurse Only Ancillary Im, Nurse Annual Wellness [facility] [address] [place] [address] 10/10/2023 Office Visit Internal Medicine Betty Muñoz MD [address] [place] [address] Health Maintenance Due Date Last Done Comments [...] this encounter Medical Devices Implanted Type Area Supervisor Cook Room Device Identifier Shelf Expiration Date Model / Serial / Lot Lens Intraoc 20.0 - [id number] - [id number] Implanted:Qty: 1 on 01/10/2022 by Woodrow Merlos MD at [facility] Left: Eye [employer] 06/03/2026 [id number] / [id number] / [id number] Lens Intraoc 20.0 - [id number] - [id number] Implanted:Qty: 1 on 01/17/2022 by Woodrow Merlos MD at [facility] Right: Eye [employer] 07/04/2026 [id number] / [id number] / [id number] documented as of this encounter Visit Diagnoses [...] the patient have Health Care Power of Ribbon Sweatband Operator? No Code Status History Code Status Date Activated Date Inactivated Comments No Code 01/10/2022 10:23 AM 01/10/2022 4:37 PM This o rder reflects the patients wishes and were consensually agreed upon. Question Answer Comments Discussion of Advance Directives occurred with: Patient Does the patient have a Living Will? No Does the patient have Health Care Power of Ribbon Sweatband Operator? No Care Teams Plaster Maker Relationship Specialty Start Date End Date Betty Muñoz MD [address] [place] [id number] PCP - General Internal Medicine 01/31/21 documented as of this encounter
--- OUTSIDE RECORDS SUMMARY | 2023-05-05 09:10 | External Medical Summary | Summary of Care ---
Author Name Unknown Organization [facility] Address [address] [place] [address] Phone [phone] Care Team Providers Care Disability Case Manager Name Role Phone Betty Muñoz MD Primary Care Provider [phone] Reason for Visit * Reason Comments Medication Management Follow Up Encounter Details Date Type Department Care Team Description 12/08/2022 Office Visit Psychiatry, Kaila Wellington [address] [place] [address] Shahla Lopez CRNP [address] [place] [address] Generalized anxiety disorder*; Panic disorder without agoraphobia; Recurrent major depressive disorder, in partial remission (HCC) Allergies Active Allergy Reactions Severity Noted Date Comments Iodinated Contrast Media Rash 10/06/2009 Iodine Rash 04/17/2001 documented as of this encounter (statuses as of 12/08/2022) Medications Medication Sig Dispensed Refills Start Date [...] Anxiety. 5 Tablet 0 07/24/2022 Active Ipratropium [place] 0.03 % Nasal Solution 2 squirts each nostril 2-4 times daily. May precede with nasal saline 90 mL 3 08/15/2022 Active traZODone HCl 50 MG Oral Tablet (Desyrel)Indications :Generalized anxiety disorder,Panic disorder without agoraphobia,Recurren t major depressive disorder, in partial remission (HCC) Take 1 Tablet by mouth at bedtime. 30 Tablet 2 09/11/2022 Active Zoster Vac Recomb Adjuvanted 50 MCG/0.5ML Intramuscular Suspension Reconstituted (Shingrix)Indication s:Need for vaccination for zoster Inject 0.5 mL into a large muscle now and repeat dose in 60 to 180 days 1 Each 1 10/09/2022 Active Venlafaxine HCl ER 37.5 MG Oral Capsule Extended Release 24 HourIndications:Gene ralized anxiety disorder,Panic disorder without agoraphobia,Recurren t major depressive disorder, in partial remission (HCC) Take 2 Capsules by mouth in the morning. Since 10/02/22--being weaned off by Marko. 30 Capsule 0 10/09/2022 Active CPAP every night at bedtime. 0 Active busPIRone HCl 30 MG Oral TabletIndications:Ge neralized anxiety disorder,Panic disorder without agoraphobia,Recurren t major depressive disorder, in partial remission (HCC) Take 1 Tablet by mouth in the morning and 1 Tablet in the evening. 60 Tablet 1 12/08/2022 Active busPIRone HCl 10 MG Oral Tablet (Buspar)Indications: Generalized anxiety disorder,Panic disorder without agoraphobia,Recurren t major depressive disorder, in partial remission (HCC) Take 1.5 tablets (15 mg) in the morning, 1 tablet (10 mg) at noon and 1.5 tablets (15 mg) at bedtime daily. 120 Tablet 1 11/20/2022 3 Discontinue d(Refill) documented as of this encounter (statuses as of 12/08/2022) Active Problems Problem Noted Date AGATHA (obstructive [...] as of this encounter (statuses as of 12/08/2022) Resolved Problems Problem Noted Date Resolved Date Deviated nasal septum 12/15/2019 10/03/2021 Rhinorrhea 12/15/2019 01/19/2020 Helicobacter pylori (H. 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 : 1950 Date Seen: 12/08/2022 Time Seen: 1045 LOCATION FROM WHICH SERVICE IS DELIVERED [facility] PATIENT'S CURRENT PHYSICAL LOCATION [facility] The patient was seen and interviewed, and available records and data were reviewed today. SUBJECTIVE: Timothy Sorensen Jr. is a 72 year old male presenting for follow-up of anxiety and depression. Timothy Sorensen Jr. is accompanied by for this appointment. CC: Medication management and psychotherapy follow up treatment HISTORY OF PRESENT ILLNESS: *As noted by Odalis Haddad, PhD on 11/29/21:Pt described that he has been experiencing anxiety/nervousness and bouts of depression he thinks that started at the beginningof the pandemic. He is fully vaccinated and has not gotten COVID-19 as far as he is aware. The depression is minor but the anxiety is more primary. 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 Also has some "OCD tendencies" and ocular migraines that have been worse recently. He indicated thathe will sometimes get confused with or without a migraine present- like not being able to comprehend what his is saying or not being able to spell words. The sun can trigger these occular migraines. As noted by Odalis Haddad, PhD on 12/01/21:Pt presents complaining of ocular migraines that spreadfrom one eye to the other. He has blurry foggy,vision almost like cataracts. These last for a minimum of an hour. He will also experience confusion when these occur. Sun can trigger these. He reported that they are more frequent recently. He hascataracttesting scheduled for early December. Pt is seeing a neurologist who recommended a medication for his ocular migraine but ptthought the potential side effects with this medication could be worse thanhissymptoms so he has not taken anything. He has been experiencing anxiety since COVID-19 started. He also had to put his dog down around this sametime. He described anxiety asexperiencing a flushing sensation that is unpleasant. This feeling will sometimes come out of the blue.He reported that he also feels very tried all the time. He never feels as good as he should. He indicated that he is also experiencing some depression- he thinks this started first- recurrentepisodes(mostly in the winter). The anxiety is more recent. He indicated that his symptoms include feeling tired, loss of energy,andloss of appetite. He recently started seeing nuclear control operator for uni ntended weight loss. These flushing episodes have gotten more frequent. In the morning, he will usually feel worse and it gets better as the day goes on. Never treated for anxiety or depression in the past. Pt also described a history ofOCD tendencies- cleanlinessand likingthings in order. He deniedsignificant impairment but his symptomshave increased in the last few years. He reported that physical activityand being engaged in activitycan make his anxiety go away. Describes that one negative thought will bring up anotherand so on when he feels anxious.To managethis acute anxiety, he willhold his thumb which make him feel better. CURRENT PSYCHIATRIC PROVIDERS/SERVICES: None - trying to find new therapy provider MEDICATION SIDE EFFECTS/ADHERENCE: Negative side effects from current prescribed psychotropic medications: nausea Medication adherence: good PREVIOUS PSYCHOTROPIC MEDICATION TRIALS: Lexapro Zoloft Remeron Hydroxyzine Effexor RELEVANT PSYCHIATRIC, MEDICAL, FAMILY OR SOCIAL HISTORY/UPDATE: Current living situation:living with Marital status: Children:0 Childhood/raised by:mother was single parent, as pt's father when pt was 9 years; his motheralways made sure he had what he needed Siblings:1 younger sister and 1 older sister History of past or current CYS involvement:no History of homelessness/intermediate living?no Social support/supportive people in life:, family, friends Leisure/recreational activities:camp, read, play music Adventist/philosophical beliefs:none EDUCATION: Some College 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 There is no height or weight on file to calculate BMI. No height and weight on file for this encounter. Weight at last 3 appointments: Wt Readings from Last 3 Encounters: 10/17/22 69.4 kg (153 lb) 10/09/22 69.4 kg (153 lb 1.6 oz) 10/04/22 70.9 kg (156 lb 6.4 oz) LABORATORY RESULTS: No results found for this or any previous visit (from the past 1344 hour(s)). REVIEW OF SYSTEMS: unremarkable MENTAL STATUS EVALUATION: General Appearance: appropriately dressed, appropriately groomed, and good eye contact Attitude/Behavior: cooperative, open and friendly, engaged Motor Behavior/Muscle Strength & Tone/Gait & Station: no abnormalities noted Speech: poor articulation due to ocular migraine Mood: anxious Affect: mood-congruent Thought Process: goal [...] ability to repeat phrase and name object: impaired by ocular migraine Estimated Intelligence & Fund of Knowledge: Normal Insight: fair Judgement: good Impulse Control: good Kinsey Suicide Severity Rating Scale Results 12/08/2022 10:46 [place] SUICIDE SEVERITY RATING SCALE (C-SSRS) Have [...] attitude and or beliefs and cultural and denominational beliefs that discourage suicide and support hopefulness Based on these risk and protective factors, this patient's safety risk is assessed to be minimal atthis time. Outpatient Adult Psychiatry Treatment Plan Treatment plan was developed on 09/11/22, treatment will continue to focus on goals below; Treatmentupdate will occur when clinically indicated or by 03/13/23. 1. Patient's goals captured in patient's words: "Want to relax" Crisis Planning: What I can do if I ever experience a crisis (much worse symptoms, severe distress or thoughts of self-harm): Journal/Writing, Art/Music, Relaxation/Breathing exercises/Yoga and Talking to loved one or friend or trusted person People I can call in the event of a crisis: Spouse/partner/significant other 2. Additional resources I can utilize if the previous steps are ineffective (e.g: ED, hotlines): Suicide and Crisis Lifeline - 988 and [employer] access to crisis numbers 3. Patient/Family Received Copy of Treatment Plan: Patient has access to [facility] 4. Signature Obtained on Treatment Plan: No 5. Expected family or significant other involvement: Participate in visits, Offer Support and Crisis Support 6. Patient strengths and facilitating factors to care:Recognizes need for change, Seeking help, Goal Oriented, Attempting to realize ones potential, Manages multiple demands in life, Has a purpose inlife, Has hobbies, Good support system, Cultural/spiritual/denominational and community involvement, Access to housing, Financial stability, Cooperative and Able to [...] 72 year old male with presenting symptoms ofMajor Depressive disorder, recurrent, in partial remission, Generalized Anxiety Disorder, and Panic disorder based on above notedreport. Genna was initially anxious in the appt, but gradually was able to become more calm. He acknowledges depression is something he has experienced in the past, but did not recognize it for whatit was. He has been struggling more with anxiety and panic over the past couple years, with symptoms becoming more intense gradually. He had attempted to take Lexapro as prescribed by PCP, but he didnot have a good reaction to the medication [...] increased dose of Zoloft. In fact, Pt hasfelt more unsettled on the medication, stating it [...] Remeron. Zoloft to be stopped, as he is only on 25 mg, he can stop without [...] decision was made to start Effexor XR 37.5 mg in the morning and continue Remeron 15 mg at bedtime. If Effexor is well tolerated, intermediate accountant p jud will be to taper Remeron and titrate [...] complete nights sleep. Pt has started experiencing master coastwise yacht awakenings with increased anxiety. Anxiety and panic [...] trazodone or adding medication such as gabapentin. Diagnosis: Generalized Anxiety Disorder Panic disorder Major depressive disorder, recurrent, in partial remission Rule out mild cognitive impairment Medications: Continue Ativan 0.5 mg daily PRN for severe anxiety/panic - has not been used Continue trazodone to 50 mg at bedtime for sleep support and to augment antidepressant Increase Buspar 30 mg BID for anxiety I have reviewed the patient's controlled substance dispensing history in the Prescription Drug Monitoring Program in compliance with the [facility] regulations before prescribing a controlled substance. Laboratory/Diagnostics: none Counseling: Continue to offer psychotherapy utilizingas adjunct to evaluation, management and prescription ofpsychiatric medications. Patient to continue additional individual therapy. PCP/medical: Continue to follow up with primary care provider and/or medical specialists as scheduled/appropriate. Return Appointment: Timothy Sorensen Jr. is to return in6 weeks. Sooner PRN. This treatment plan was [...] by activating mobile crisis teams and EMS. Psychoeducationwas provided regarding patient's diagnoses and potential treatment modalities, including psychotherapeutic and psychopharmacologic options for treatment. Risks, benefits, alternatives and side effects of medication/s were explained, and the patient verbalized understanding of the ri sks and benefits of using medication as prescribed. The benefits of treatment outweigh the risks. Patient cautioned not to drive, operate heavy machinery, or participate in other tasks requiring fullcognitive alertness until they know how new medications will affect them. Pt encouraged to keep allmedications out of the reach of children. The patient participated in the development of the treatment plan, verbalized understanding, voices no concerns and is agreeable to the treatment plan. Patient is making an informed medical decision to follow the recommendations outlined in this note. Directed pt to call with any questions or concerns, worsening symptoms and/or ask for earlier appointment. Risk Assessment:Risk assessment was performed for Timothy Sorensen Jr.. This patient is being treated for mental health conditions as characterized above; at the time of this visit, there was no indication that this patient was either a risk to self, others, or gravely disabled by symptoms of a mental illness. At the time of this evaluation, there were enough protective factors in place and it was deemed safe to continue with treatment on a outpatient basis with return to clinic in the timeframe described above. Health Maintenance:Timothy Sorensen Jr. was encouraged to keep up to date on regular health maintenance [facility]. Timothy Sorensen Jr. was encouraged to keep active inproductive hobbies and exercise, as this can help manage emotions, improve sleep, wellbeing and overall health. Pt was cautioned to not drink alcohol or use illicit drugs as these can make symptoms worse by blocking the effects of prescribed medications. Advised to avoid tobacco and products containing nicotine and to limit caffeine use. Nicotine and caffeine are stimulants that can cause difficulty with symptom management and pose increased health risks. Please note >17 minutes of counseling time over and above medication management was spent with patient discussing self care and providing supportive therapy, including Supportive listening Problem solving Shahla Lopez, MSN, CHIEF DIETITIAN, PMHNP-BC [facility] Psychiat[facility] Current Outpatient Medications Medication Sig Dispense Refill busPIRone HCl 30 MG Oral Tablet Take 1 Tablet by mouth in the morning and 1 Tablet in the evening. 60 Tablet 1 VITAMIN B COMPLEX PO CAPS 1 cap daily ASPIRIN EC 81 MG PO TBEC Take by mouth . sterile water for irrigation SOLN 240 mL with hypertonic saline rinse PACK 2 Packet 2 Packets 2times a day. Vitamin D 25 MCG (1000 UT) Oral Tablet Take by mouth. Magnesium Oxide 400 MG Oral Tablet Take 1 Tab by mouth daily. St 01/31/2021 1 Tab 0 Metoprolol Succinate ER 25 MG Oral Tablet Extended Release 24 Hour (toPROL XL) Take 0.5 Tabletsby mouth every evening. 45 Tablet 3 Atorvastatin Calcium 20 MG Oral Tablet (Lipitor) take 1 tablet by mouth once daily 90 Tablet 1 Mometasone Furoate 50 MCG/ACT Nasal Suspension instill 2 sprays into each nostril once daily ifneeded for allergies 51 g 1 LORazepam 0.5 MG Oral Tablet (Ativan) Take 1 Tablet by mouth daily as needed for Anxiety. 5 Tablet 0 Ipratropium [place] 0.03 % Nasal Solution 2 squirts each nostril 2-4 times daily. May precede with nasal saline 90 mL 3 traZODone HCl 50 MG Oral Tablet (Desyrel) Take 1 Tablet by mouth at bedtime. 30 Tablet 2 Zoster Vac Recomb Adjuvanted 50 MCG/0.5ML Intramuscular Suspension Reconstituted (Shingrix) Inject 0.5 mL into a large muscle now and repeat dose in 60 to 180 days 1 Each 1 Venlafaxine HCl ER 37.5 MG Oral Capsule Extended Release 24 Hour Take 2 Capsules by mouth in the morning. Since 10/02/22--being weaned off by Marko. 30 Capsule 0 CPAP every night at bedtime. No current facility-administered medications for this visit. documented in this encounter Plan of Treatment Upcoming Encounters Date Type Specialty Care Team Description 01/22/2023 Office Visit Psychiatry Lopez, PARVIZ Morales [address] [place] [id number] 01/30/2023 Office Visit Allergy & Immunology Malgorzata Ingram PA-C [address] [place] [address] 02/06/2023 Office Visit Cardiology David Odell MD [address] [place] [id number] 03/14/2023 Office Visit Sleep Disorders Carla Montoya, DO [address] [place] [id number] 04/18/2023 Office Visit Dermatology Alexsandra Butts PA-C [address] [place] [phone] 10/10/2023 Nurse Only Ancillary Im, Nurse Annual [facility] [place] [address] [place] [address] 10/10/2023 Office Visit Internal Medicine Betty Muñoz MD [address] [place] [address] Health Maintenance Due Date Last Done Comments [...] 09/16/2027 09/15/2022, 10/03, 01/31/2021, Additional history exists ABDOMINAL AORTIC ANEURYSM (AAA) SCREENING Completed 01/23/2017 Pneumococcal Vaccine: 65+ Years Completed [...] encounter Medical Devices Implanted Type Area Supervisor Cytology Device Identifier Shelf Expiration Date Model / Serial / Lot Lens Intraoc 20.0 - [id number] - [id number] Implanted:Qty: 1 on 01/10/2022 by Woodrow Merlos MD at [facility] Left: Eye [employer] 06/03/2026 [id number] / [id number] / [id number] Lens Intraoc 20.0 - [id number] - [id number] Implanted:Qty: 1 on 01/17/2022 by Woodrow Merlos MD at [facility] Right: Eye [employer] 07/04/2026 [id number] / [id number] / [id number] documented as of this encounter Visit Diagnoses [...] the patient have Health Care Power of Fitter/Welder? No Code Status History Code Status Date Activated Date Inactivated Comments No Code 01/10/2022 10:23 AM 01/10/2022 4:37 PM This o rder reflects the patients wishes and were consensually agreed upon. Question Answer Comments Discussion of Advance Directives occurred with: Patient Does the patient have a Living Will? No Does the patient have Health Care Power of Fitter/Welder? No Care Teams Disability Case Manager Relationship Specialty Start Date End Date Betty Muñoz MD [address] [place] [address] PCP - General Internal Medicine 01/31/21 documented as of this encounter
--- OUTSIDE RECORDS SUMMARY | 2023-05-05 09:10 | External Medical Summary | Summary of Care ---
Author Name Unknown Organization [facility] Address [address] [place] [address] Phone [phone] Care Team Providers Care Full Service Supervisor Name Role Phone Betty Muñoz MD Primary Care Provider [phone] Reason for Visit * Reason Comments Medication Management Follow Up Encounter Details Date Type Department Care Team Description 02/23/2023 Office Visit Psychiatry, Kaila Wellington [address] [place] [address] Shahla Lopez CRNP [address] [place] [address] Generalized anxiety disorder*; Panic disorder without agoraphobia; Recurrent major depressive disorder, in partial remission (HCC) Allergies Active Allergy Reactions Severity Noted Date Comments Iodinated Contrast Media Rash 10/06/2009 Iodine Rash 04/17/2001 documented as of this encounter (statuses as of 02/24/2023) Medications Medication Sig Dispensed Refills Start Date [...] allergies 51 g 1 07/03/2022 Active Ipratropium Jackson 0.03 % Nasal Solution 2 squirts each [...] 01/17/2023 Active LORazepam 0.5 MG Oral Tablet (Ativan)Indications: Generalized anxiety disorder,Panic disorder without agoraphobia Take 1 Tablet by mouth daily as needed for Anxiety. 30 Tablet 0 02/12/2023 Active Mirtazapine 15 MG Oral Tablet (Remeron)Indications :Generalized anxiety disorder,Panic disorder without agoraphobia,Recurren t major depressive disorder, in partial remission (HCC) Take 1 Tablet by mouth at bedtime. 30 Tablet 1 02/23/2023 Active traZODone HCl 50 MG Oral Tablet (Desyrel)Indications :Generalized anxiety disorder,Panic disorder without agoraphobia,Recurren t major depressive disorder, in partial remission (HCC) Take 1 Tablet by mouth at bedtime. 30 Tablet 2 12/25/2022 3 Discontinue d(Patient preference/ discontinua tion) documented as of this encounter (statuses as of 02/24/2023) Active Problems Problem Noted Date AGATHA (obstructive [...] as of this encounter (statuses as of 02/24/2023) Resolved Problems Problem Noted Date Resolved Date Deviated nasal septum 12/15/2019 10/03/2021 Rhinorrhea 12/15/2019 01/19/2020 Helicobacter pylori (H. 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 : 1950 Date Seen: 02/23/2023 LOCATION FROM WHICH SERVICE IS DELIVERED [facility] PATIENT'S CURRENT PHYSICAL LOCATION [facility] The patient was seen and interviewed, and [...] he is sitting and thinking. 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 Alsohas some "OCD tendencies" [...] loss of appetite. He recently started seeing aircraft pneudraulics repairer for unintended weight loss. These flushing episodes [...] or current CYS involvement: no History of homelessness/prison living? 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 If Effexor is well tolerated, [place] [facility] plan will be to taper Remeron and [...] complete nights sleep. Pt has started experiencing soap tender awakenings with increased anxiety. Anxiety and panic [...] due to anxiety. Hehas stopped playing in [employer] band, is worried about general household tasks, [...] BID PRN for moderate to severe anxiety. Diagnosis: Generalized Anxiety Disorder Panic disorder Major depressive disorder, recurrent, in partial remission Rule out mild cognitive impairment Medications: Increase Ativan 0.25 mg to 0.5 mg BID PRN for severe anxiety/panic as noted above Discontinue trazodone to 50 mg at bedtime for sleep support and to augment antidepressant Continue Buspar 10 mg in AM, 10 mg noon, and 10 mg PM for anxiety Start Remeron 15 mg at bedtime I have reviewed the patient's controlled substance dispensing history in the Prescription Drug Monitoring Program in compliance with the [facility] regulations before prescribing a controlled substance. Laboratory/Diagnostics: [...] Supportive listening Problem solving Shahla Lopez, MSN, ROLL HAULER, PMHNP-[facility] Current Outpatient Medications Medication Sig Dispense Refill Mirtazapine 15 MG Oral Tablet (Remeron) Take 1 Tablet by mouth at bedtime. 30 Tablet 1 VITAMIN B COMPLEX PO CAPS [...] needed for allergies 51 g 1 Ipratropium Jackson 0.03 % Nasal Solution 2 squirts each [...] Su CRNP [address] [place] [address] 03/12/2023 Office Visit Psychiatry Lopez, PARVIZ Morales [address] [place] [address] 03/14/2023 Office Visit Sleep Disorders Carla Montoya, [address] [place] [address] 04/18/2023 Office Visit Dermatology Alexsandra Butts PA-C [address] [place] [phone] 10/10/2023 Nurse Only Ancillary Im, Nurse Annual Wellness [place] [address] [place] [address] 10/10/2023 Office Visit Internal Medicine Betty Muñoz MD [address] [place] [address] Health Maintenance Due Date Last Done Comments [...] this encounter Medical Devices Implanted Type Area Kiln Cleaner Device Identifier Shelf Expiration Date Model / Serial / Lot Lens Intraoc 20.0 - [id number] - [id number] Implanted:Qty: 1 on 01/10/2022 by Woodrow Merlos MD at OR [facility] Left: Eye BAUSCH & LOMB 06/03/2026 [id number] / [id number] / [id number] Lens Intraoc 20.0 - [id number] - [id number] Implanted:Qty: 1 on 01/17/2022 by Woodrow Merlos MD at OR [facility] Right: Eye BAUSCH & LOMB 07/04/2026 [id number] / [id number] / [id number] documented as of this encounter Visit Diagnoses [...] the patient have Health Care Power of School Age Lead Teacher? No Code Status History Code Status Date Activated Date Inactivated Comments No Code 01/10/2022 10:23 AM 01/10/2022 4:37 PM This o rder reflects the patients wishes and were consensually agreed upon. Question Answer Comments Discussion of Advance Directives occurred with: Patient Does the patient have a Living Will? No Does the patient have Health Care Power of School Age Lead Teacher? No Care Teams Full Service Supervisor Relationship Specialty Start Date End Date Betty Muñoz MD [address] [facility] [place] [address] PCP - General Internal Medicine 01/31/21 documented as of this encounter
--- OUTSIDE RECORDS SUMMARY | 2023-05-05 09:10 | External Medical Summary | Summary of Care ---
Author Name Unknown Organization [facility] Address [address] [place] [address] Phone [phone] Care Team Providers Care Dye Line Operator Name Role Phone Betty Muñoz MD Primary Care Provider [phone] Encounter Details Date Type Department Care Team Description 2023 Result Scan Unspecified Department <No scans attached> Allergies Active Allergy Reactions Severity Noted Date [...] allergies 51 g 1 07/03/2022 Active Ipratropium Edwards 0.03 % Nasal Solution 2 squirts each [...] 11/2015 Coronary atherosclerosis of [place] coronary shantel ry 11/11/2010 02/06/2018 Old myocardial [...] epidermal cyst - R eye 495 04/19/2002 10/0 06/2017 OTHER ACNE-93 04/19/2002 03/04/2018 Other atopic dermatitis 04/19/2002 12/28/19 [...] Su CRNP [address] [place] [address] 03/12/2023 Office Visit Psychiatry Lopez, PARVIZ Morales 200 [facility] [place] [address] 03/14/2023 Office Visit Sleep Disorders Carla Montoya DO [address] [place] [address] 04/18/2023 Office Visit Dermatology Alexsandra Butts PA-C 200 [facility] [place] [phone] 10/10/2023 Nurse Only Ancillary Im, Nurse Annual Wellness [facility] [place] [facility] [place] [address] 10/10/2023 Office Visit Internal Medicine Betty Muñoz MD 200 [facility] [place] [address] Health Maintenance Due Date Last Done Comments [...] this encounter Medical Devices Implanted Type Area Brush Hand Device Identifier Shelf Expiration Date Model / Serial / Lot Lens Intraoc 20.0 - [id number] - [id number] Implanted:Qty: 1 on 01/10/2022 by Woodrow Merlos MD at OR [facility] Left: Eye BAUSCH & LOMB 06/03/2026 [id number] / [id number] / [id number] Lens Intraoc 20.0 - [id number] - [id number] Implanted:Qty: 1 on 01/17/2022 by Woodrow Merlos MD at OR [facility] Right: Eye BAUSCH & LOMB 07/04/2026 [id number] / [id number] / [id number] documented as of this encounter Procedures Procedure Name Priority Date/Time Associated Diagnosis Comments PROCEDURE SCANNED RESULT 2023 documented in this encounter Results * PROCEDURE SCANNED RESULT (2023) 2023 No Physician Data Unknown SURGERY documented in this encounter Advance Directives Latest Code Status on File Code Status Date Activated Date Inactivated Comments No Code 01/17/2022 12:53 PM 01/17/2022 7:09 PM This order reflects the patients wishes and were consensually agreed upon. Question Answer Comments Discussion of Advance Directives occurred with: Patient Does the patient have a Living Will? No Does the patient have Health Care Power of Clinical Rehabilitation Specialist? No Code Status History Code Status Date Activated Date Inactivated Comments No Code 01/10/2022 10:23 AM 01/10/2022 4:37 PM This o rder reflects the patients wishes and were consensually agreed upon. Question Answer Comments Discussion of Advance Directives occurred with: Patient Does the patient have a Living Will? No Does the patient have Health Care Power of Clinical Rehabilitation Specialist? No Care Teams Dye Line Operator Relationship Specialty Start Date End Date Betty Muñoz MD [address] [place] [address] PCP - General Internal Medicine 01/31/21 documented as of this encounter
--- OUTSIDE RECORDS SUMMARY | 2023-05-05 09:10 | External Medical Summary | Summary of Care ---
Author Name Unknown Organization [facility] Address [address] [place] [address] Phone [phone] Care Team Providers Care Account Manager Name Role Phone Betty Muñoz MD Primary Care Provider [phone] Reason for Visit * Reason Comments Medication Management Follow Up Encounter Details Date Type Department Care Team Description 01/22/2023 Office Visit Psychiatry, Kaila Wellington [address] [place] [address] Shahla Lopez CRNP [address] [place] [address] Generalized anxiety disorder*; Panic disorder without agoraphobia; Recurrent major depressive disorder, in partial remission (HCC) Allergies Active Allergy Reactions Severity Noted Date Comments Iodinated Contrast Media Rash 10/06/2009 Iodine Rash 04/17/2001 documented as of this encounter (statuses as of 01/23/2023) Medications Medication Sig Dispensed Refills Start Date [...] Anxiety. 5 Tablet 0 07/24/2022 Active Ipratropium Guin 0.03 % Nasal Solution 2 squirts each [...] as of this encounter (statuses as of 01/23/2023) Active Problems Problem Noted Date AGATHA (obstructive [...] as of this encounter (statuses as of 01/23/2023) Resolved Problems Problem Noted Date Resolved Date Deviated nasal septum 12/15/2019 10/03/2021 Rhinorrhea 12/15/2019 01/19/2020 Helicobacter pylori (H. 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 : 1950 Date Seen: 01/23/2023 LOCATION FROM WHICH SERVICE IS DELIVERED [facility] PATIENT'S CURRENT PHYSICAL LOCATION [facility] The patient was seen and interviewed, [...] he is sitting and thinking. 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 Alsohas some "OCD tendencies" [...] loss of appetite. He recently started seeing cork slabs sawyer for unintended weight loss. These flushing episodes [...] or current CYS involvement: no History of homelessness/halfway living? no Social support/supportive people in life: , family, friends Leisure/recreational activities: camp, read, play music Buddhist/philosophical beliefs: none EDUCATION: Some College OCCUPATIONAL HISTORY: [...] Insight: fair Judgement: fair Impulse Control: fair [place] Suicide Severity Rating Scale Results 01/22/2023 11:28 [place] SUICIDE SEVERITY RATING SCALE (C-SSRS) Have [...] attitude and or beliefs and cultural and sikhism beliefs that discourage suicide and support hopefulness [...] Suicide and Crisis Lifeline - 988 and [employer] access to crisis numbers Patient/Family Received Copy of Treatment Plan: Patient has access to [employer] Signature Obtained on Treatment Plan: No Expected family or significant other involvement: Participate in visits, Offer Support and Crisis Support Patient strengths and facilitating factors to care:Recognizes need for change, Seeking help, Goal Oriented, Attempting to realize ones potential, Manages multiple demands in life, Has a purpose in life, Has hobbies, Good support system, Cultural/spiritual/sikhism and community involvement, Accessto housing, Financial stability, [...] at bedtime. If Effexor is well tolerated, bed bug exterminator plan will be to taper Remeron and [...] complete nights sleep. Pt has started experiencing pst manager awakenings with increased anxiety. Anxiety and panic [...] Trazodone and buspar will remain as prescribed. Diagnosis: Generalized Anxiety Disorder Panic disorder Major depressive disorder, recurrent, in partial remission Rule out mild cognitive impairment Medications: Continue Ativan 0.5 mg daily PRN for severe anxiety/panic Continue trazodone to 50 mg at bedtime for sleep support and to augment antidepressant Continue Buspar 15 mg in AM, 15 mg noon, and 10 mg PM for anxiety Start paxil 10 mg at bedtime for anxiety and depression I have reviewed the patient's controlled substance dispensing history in the Prescription Drug Monitoring Program in compliance with the [facility] regulations before prescribing a controlled substance. [...] Supportive listening Problem solving Shahla Lopez, MSN, MUNITIONS FACTORY WORKER, PMHNP-BC [facility] Psychiatry [facility] Current Outpatient Medications Medication Sig Dispense Refill PARoxetine HCl 10 MG Oral Tablet (pAXil) Take 1 Tablet by mouth in the morning. 30 Tablet 1 VITAMIN B COMPLEX PO [...] needed for Anxiety. 5 Tablet 0 Ipratropium Guin 0.03 % Nasal Solution 2 squirts each [...] Encounters Date Type Specialty Care Team Description 01/30/2023 Office Visit Allergy & Immunology Malgorzata Ingram PA-C [address] [place] [address] 02/06/2023 Office Visit Cardiology David Odell MD [address] [place] [address] 02/12/2023 Office Visit Psychiatry Lopez, PARVIZ Morales [address] [place] [address] 03/14/2023 Office Visit Sleep Disorders Carla Montoya, [address] [place] [address] 04/18/2023 Office Visit Dermatology Alexsandra Butts PA-C [address] [place] [phone] 10/10/2023 Nurse Only Ancillary Im, Nurse Annual Wellness [facility] [address] [facility] [place] [address] 10/10/2023 Office Visit Internal Medicine Betty Muñoz MD [address] [facility] [place] [address] Health Maintenance Due Date Last Done Comments [...] this encounter Medical Devices Implanted Type Area Research Dairy Farm Supervisor Device Identifier Shelf Expiration Date Model / Serial / Lot Lens Intraoc 20.0 - [id number] - [id number] Implanted:Qty: 1 on 01/10/2022 by Woodrow Merlos MD at OR [facility] Left: Eye BAUSCH & LOMB 06/03/2026 [id number] / [id number] / [id number] Lens Intraoc 20.0 - [id number] - [id number] Implanted:Qty: 1 on 01/17/2022 by Woodrow Merlos MD at OR [facility] Right: Eye BAUSCH & LOMB 07/04/2026 [id number] / [id number] / [id number] documented as of this encounter Visit Diagnoses [...] the patient have Health Care Power of Furnace Hand? No Code Status History Code Status Date Activated Date Inactivated Comments No Code 01/10/2022 10:23 AM 01/10/2022 4:37 PM This o rder reflects the patients wishes and were consensually agreed upon. Question Answer Comments Discussion of Advance Directives occurred with: Patient Does the patient have a Living Will? No Does the patient have Health Care Power of Furnace Hand? No Care Teams Account Manager Relationship Specialty Start Date End Date Betty Muñoz MD [address] [place] [address], [place] [address] PCP - General Internal Medicine 01/31/21 documented as of this encounter
--- OUTSIDE RECORDS SUMMARY | 2023-05-05 09:10 | External Medical Summary | Summary of Care ---
Author Name Unknown Organization [facility] Address [address] [place] [address] Phone [phone] Care Team Providers Care Sheet Rock Hanger Name Role Phone Betty Muñoz MD Primary Care Provider [phone] Reason for Visit * Reason Comments Medication Management Follow Up Encounter Details Date Type Department Care Team Description 02/23/2023 Office Visit Psychiatry, Kaila Wellington [address] [place] [address] Shahla Lopez CRNP [address] [place] [address] Generalized anxiety disorder*; Panic disorder without agoraphobia; [...] allergies 51 g 1 07/03/2022 Active Ipratropium Henderson 0.03 % Nasal Solution 2 squirts each [...] mouth at bedtime. 30 Tablet 2 12/25/2022 Discontinue d(Patient preference/ discontinua tion) documented as [...] Overview: Treated in 11/2015 Coronary atherosclerosis of [place] coronary shantel ry 11/11/2010 02/06/2018 Old myocardial [...] determined 04/28/2009 Overview: Per Lipid Taxonomy Acute [place], anterior wall 05/31/20 10 12/27/2017 Benign neoplasm [...] PM EDT OUTPATIENT PSYCHIATRY DIVISION OF PSYCHIATRY [facility] Office [address] [place] [address] MEDICATION MANAGEMENT & PSYCHOTHERAPY RETURN VISIT NOTE Name: Timothy Sorensen Jr. : 1950 Date Seen: 02/23/2023 LOCATION FROM WHICH SERVICE IS DELIVERED [facility] PATIENT'S CURRENT PHYSICAL LOCATION [facility] The patient was seen and interviewed, and [...] he is sitting and thinking. 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 Alsohas some "OCD tendencies" [...] loss of appetite. He recently started seeing offbearer sewer pipe for unintended weight loss. These flushing episodes [...] or current CYS involvement: no History of homelessness/long term living? 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 in [employer] [...] Insight: fair Judgement: fair Impulse Control: fair [place] Suicide Severity Rating Scale Results 02/23/2023 23:45 [...] attitude and or beliefs and cultural and roman catholic beliefs that discourage suicide and support hopefulness [...] Suicide and Crisis Lifeline - 988 and [employer] access to crisis numbers Patient/Family Received Copy of Treatment Plan: Patient has access to [employer] Signature Obtained on Treatment Plan: No Expected family or significant other involvement: Participate in visits, Offer Support and Crisis Support Patient strengths and facilitating factors to care:Recognizes need for change, Seeking help, Goal Oriented, Attempting to realize ones potential, Manages multiple demands in life, Has a purpose in life, Has hobbies, Good support system, Cultural/spiritual/roman catholic and community involvement, Accessto housing, Financial stability, [...] at bedtime. If Effexor is well tolerated, usp plan will be to taper Remeron and [...] complete nights sleep. Pt has started experiencing hydraulic plumber helper awakenings with increased anxiety. Anxiety and panic [...] due to anxiety. Hehas stopped playing in [employer] band, is worried about general household tasks, [...] Drug Monitoring Program in compliance with the [facility] regulations before prescribing a controlled substance. [...] Supportive listening Problem solving Shahla Lopez, MSN, PRENATAL GENETIC COUNSELOR, PMHNP-[facility] Current Outpatient Medications Medication Sig [...] needed for allergies 51 g 1 Ipratropium Henderson 0.03 % Nasal Solution 2 squirts each [...] Su CRNP [address] [place] [address] 03/12/2023 Office Visit Psychiatry Lopez, PARVIZ Morales [address] [place] [address] 03/14/2023 Office Visit Sleep Disorders Carla Montoya, [address] [place] [address] 04/18/2023 Office Visit Dermatology Alexsandra Butts PA-C [address] [place] [phone] 10/10/2023 Nurse Only Ancillary Im, Nurse Annual Wellness [place] [address] [place] [address] 10/10/2023 Office Visit Internal Medicine Betty Muñoz MD [address] [place] [address] Health Maintenance Due Date Last Done Comments [...] this encounter Medical Devices Implanted Type Area Corduroy Brusher Operator Device Identifier Shelf Expiration Date Model / Serial / Lot Lens Intraoc 20.0 - [id number] - [id number] Implanted:Qty: 1 on 01/10/2022 by Woodrow Merlos MD at OR [facility] Left: Eye BAUSCH & LOMB 06/03/2026 [id number] / [id number] / [id number] Lens Intraoc 20.0 - [id number] - [id number] Implanted:Qty: 1 on 01/17/2022 by Woodrow Merlos MD at OR [facility] Right: Eye BAUSCH & LOMB 07/04/2026 [id number] / [id number] / [id number] documented as of this encounter Visit Diagnoses [...] the patient have Health Care Power of Grey Percher? No Code Status History Code Status Date Activated Date Inactivated Comments No Code 01/10/2022 10:23 AM 01/10/2022 4:37 PM This o rder reflects the patients wishes and were consensually agreed upon. Question Answer Comments Discussion of Advance Directives occurred with: Patient Does the patient have a Living Will? No Does the patient have Health Care Power of Grey Percher? No Care Teams Sheet Rock Hanger Relationship Specialty Start Date End Date Betty Muñoz MD 200 [place] [address] PCP - General Internal Medicine 01/31/21 documented as of this encounter
[2023-05-05] MEDS ORDERED: SODIUM CHLORIDE 0.9% 1,000 ML IV ONE (09:24)
--- NOTE | 2023-05-05 09:28 | Emergency Department Note ---
Impression & Plan Altered mental status, COVID-19 ED Provider Note NAME: YANDY ZHANG AGE: 73 SEX: M : 1950 ARRIVES VIA: Walk-In INFORMANT: Patient ED PROVIDER(S): Zacarias Cox DO CHIEF COMPLAINT: AMS HPI: Patient is a 73-year-old male who presents to the ER for altered mental status. Symptoms started yesterday with some weakness, runny nose, and congestion. He then became very confused. He has been having trouble putting sentences together. Patient denies any headache, neck pain or chest pain. No shortness of breath, nausea, vomiting or diarrhea. No dysuria, urgency, or frequency. No other exacerbating remitting factors. History was obtained by as patient is unable to give history. ADDITIONAL HISTORY OBTAINED: Per HPI Chronic Medical/Social Conditions Affecting Care: Per HPI PAST MEDICAL HISTORY:See Below PAST SURGICAL HISTORY:See Below FAMILY HISTORY:See Below SOCIAL HISTORY:See Below HOME MEDICATIONS:See Below ALLERGIES:See Below VITALS:See Below PHYSICAL EXAMINATION: GENERAL: Sitting up in bed, alert, well appearing, well nourished, no distress, non-toxic EYE EXAM: normal conjunctiva. PERRL and EOM's grossly intact. OROPHARYNX: no exudate, no erythema, lips, buccal mucosa, and tongue normal and mucous membranes are moist NECK: supple, no nuchal rigidity, no adenopathy, non-tender LUNGS: Clear to auscultation. Normal chest wall mechanics HEART: no murmurs, S1 normal and S2 normal ABDOMEN: abdomen soft, non-tender, normo-active bowel sounds, no masses, no rebound or guarding. UPPER EXTREMITIES: upper extremities are grossly normal. LOWER EXTREMITIES: No pitting edema. NEURO EXAM: Oriented to person, place, but not year, cranial nerves II-XII intact, normal speech, no weakness of arms, no weakness of legs. No drift. Finger to nose intact. Gross sensation intact. MEDICAL DECISION MAKING: Patient is a 73-year-old male who presents ER for altered mental status. History was obtained by as he was confused. IV was established blood work was obtained. External records reviewed. Labs show no significant leukocytosis or anemia. BMP along with LFTs was unremarkable. Troponin was slightly elevated at 22. COVID was positive. Lipase was normal. Chest x-ray was clean. CT head was negative. Patient was updated bedside as well as and was admitted for further work-up of the confusion. No signs of meningitis or encephalitis. He denies any head pain. There is no nuchal rigidity. External Records Reviewed: Seen vp patient at [facility] on 04/2019 for trouble hearing Consults/Care Managements Discussions: Per [facility] Triage Nursing notes reviewed. Limited review of prior medical records performed Vital Signs: reviewed and remarkable for no significant abnormalities Differential diagnosis: Differential diagnoses includes but is not limited to toxic, metabolic, infectious, traumatic, cardiac, neurologic, hematologic, psychiatric and inflammatory etiologies. ER treatment provided: See below Diagnostics interpreted by me include EKG and cardiac monitoring as listed below: -Cardiac Monitoring: An order was placed for continuous cardiac monitoring. The monitor shows a rate of 85 with sinus rhythm. -ECG: Sinus rhythm rate 87 Normal axis T wave inversions in the lateral leads with subtle ST wave changes QTc 457 -Laboratory studies:Interpreted by me as stated above in MDM and shown below. Imaging studies: Xrays: As interpreted by me: Portable AP upright 1 view of the chest shows no focal CTs show: none Procedures:none Critical Care: None Past Med/Surg History Social History Smoking Status: Former smoker Tobacco Type: Cigarettes Feels Safe at Home: Yes Allergies Allergies Allergy/AdvReac Type Severity Reaction Status Date / Time Iodinated Contrast Media Allergy Mild RASH Verified 05/05/23 11:30 iodine Allergy Mild RASH Verified 05/05/23 11:30 Home Meds Home Medications Medication Instructions Recorded Confirmed ascorbic acid (vitamin C) 500 mg 500 mg PO QAM ##0 02/18/14 05/05/23 tablet (Vitamin C) aspirin 81 mg tablet 81 mg PO QAM ##0 02/18/14 05/05/23 cyanocobalamin (vitamin B-12) 1,000 mcg PO QAM #0 tabs 02/19/14 05/05/23 1,000 mcg tablet (Vitamin B-12) atorvastatin 20 mg tablet 20 mg PO QAM 05/05/23 05/05/23 buspirone 10 mg tablet 10 mg PO TID 05/05/23 05/05/23 ergocalciferol (vitamin D2) 1,000 1,000 unit PO DAILY 05/05/23 05/05/23 unit capsule lorazepam 0.5 mg tablet 0.25 mg PO DAILY PRN Anxiety 05/05/23 05/05/23 magnesium oxide 400 mg PO DAILY 05/05/23 05/05/23 metoprolol succinate 25 mg 12.5 mg PO PM 05/05/23 05/05/23 tablet,extended release 24 hr mirtazapine 15 mg tablet 30 mg PO HS 05/05/23 05/05/23 mometasone 50 mcg/actuation nasal 2 spray intranasal DAILY PRN 05/05/23 05/05/23 spray ALLERGIES Results & Data (ED) Vital Signs Vital Signs - 24 hr 05/05/23 09:09 05/05/23 09:49 05/05/23 09:52 Temperature 36.3 C L Temperature Source Temporal Artery Scan Pulse Rate 82 65 67 Pulse Rate from SpO2 Sensor Pulse Rhythm Regular Respiratory Rate 16 20 Respiratory Effort / Characteristics Non-Labored Respiratory Depth Normal Blood Pressure 120/67 Blood Pressure Mean 84 Pulse Oximetry 96 95 Oxygen Delivery Method Room Air Room Air Sepsis Recent Fever Within 48 Hours Yes Sepsis New/Unexplained Change in Mental Status Yes Sepsis Action Taken by Nursing No Action Required 05/05/23 10:00 05/05/23 11:54 Temperature Temperature Source Pulse Rate 59 L 86 Pulse Rate from SpO2 Sensor 60 Pulse Rhythm Respiratory Rate 20 17 Respiratory Effort / Characteristics Respiratory Depth Blood Pressure 135/73 132/109 H Blood Pressure Mean 93 116 Pulse Oximetry 96 98 Oxygen Delivery Method Sepsis Recent Fever Within 48 Hours Sepsis New/Unexplained Change in Mental Status Sepsis Action Taken by Nursing Laboratory Data 05/05/23 09:40 05/05/23 09:40 Lab Results 05/05/23 Range/Units 09:40 WBC 7.50 (4.8-10.8) K/ul RBC 4.23 L (4.70-6.10) M/uL Hgb 13.3 L (14.0-18.0) g/dl Hct 37.3 L (42.0-52.0) % MCV 88.2 (80.0-100.0) fL MCH 31.4 (25.0-34.0) pg MCHC 35.7 (32.0-36.0) g/dL RDW Std Deviation 39.8 (36.4-46.3) fL RDW Coeff of Larissa 12.3 (11.5-14.5) % Plt Count 162 (130-400) K/uL MPV 10.9 (9.4-12.4) fL Immature Gran % (Auto) 0.3 % Neut % (Auto) 73.8 % Lymph % (Auto) 13.5 % [place] % (Auto) 12.3 % Eos % (Auto) 0.0 % Baso % (Auto) 0.1 % Neut # (Auto) 5.54 (1.40-6.50) K/uL Lymph # (Auto) 1.01 L (1.20-3.40) K/uL [place] # (Auto) 0.92 H (0.11-0.59) K/uL Eos # (Auto) 0.00 (0.00-0.50) K/uL Baso # (Auto) 0.01 (0.00-0.20) K/uL Immature Gran # (Auto) 0.02 (0.01-0.20) K/uL Sodium 134 L (136-145) mmol/L Potassium 3.6 (3.5-5.1) mmol/L Chloride 101 (98-107) mmol/L Carbon Dioxide 24 (21-32) mmol/L Anion Gap 9 (3-11) BUN 15 (6-23) mg/dl Creatinine 1.07 (0.6-1.4) mg/dl Est Cr Clr Drug Dosing 62.4 ml/min Est GFR ( Amer) 80.0 ml/min Est GFR (Non-Af Amer) 69.0 ml/min BUN/Creatinine Ratio 14.0 (10-20) Glucose 126 H (70-99(Fasting)) mg/dl Calcium 8.4 L (8.6-10.3) mg/dl Total Bilirubin 1.1 H (0.2-1.0) mg/dl AST 26 (13-39) U/L ALT 20 (7-52) U/L Alkaline Phosphatase 41 (34-104) U/L Troponin I High Sens 22.7 H (0-20) pg/ml Total Protein 6.2 (6.0-8.3) gm/dl Albumin 4.0 (3.4-5.0) gm/dl Globulin 2.2 L (2.5-4.0) gm/dl Albumin/Globulin Ratio 1.8 (0.9-2) Lipase 33 (11-82) U/L SARS-CoV-2, RNA, NAAT POSITIVE A* (NEGATIVE) Administered Medications Magnesium Sulfate/Dextrose (Magnesium Sulfate / D5w) 1 gm in 100 mls @ 50 mls/hr IV ONE ONE Stop: 05/05/23 14:36 Last Admin: 05/05/23 13:11 Dose: 50 mls/hr Documented By: NDW Discontinued Medications Sodium Chloride (Nss) 1,000 mls @ 999 mls/hr IV .Q1H1M ONE Stop: 05/05/23 10:24 Last Admin: 05/05/23 09:53 Dose: 999 mls/hr Documented By: MNE Imaging Data Radiologist's Impression: Head CT 05/05/23 09:24 CT OF THE HEAD WITHOUT CONTRAST CLINICAL HISTORY: Altered mental status. COMPARISON STUDY: No previous studies for comparison. CT DOSE: 625.8 mGy.cm TECHNIQUE: Helical axial images of the head were obtained without IV contrast. Automated exposure control was utilized for the study. A dose lowering technique was utilized adhering to the principles of ALARA. FINDINGS: No acute intracranial hemorrhage, midline shift or mass effect is present. The ventricular system is unremarkable. The basal cisterns are patent. No extra-axial collections are present. There are no findings to suggest acute dural sinus thrombosis or acute territorial infarct. White matter hypodensities favor small vessel disease. There is mild ethmoid sinus mucosal thickening. IMPRESSION: No acute intracranial findings. ACT 112: Negative or not required by law. Electronically signed by: Gibson Peterson M.D. 05/05/2023 10:41 AM Chest X-Ray 05/05/23 09:25 XR chest 1V portable CLINICAL HISTORY: Chest pain, nonspecific. COMPARISON STUDY: No previous studies for comparison. FINDINGS: Lung volumes are normal. Lungs are clear. Suspected nipple shadow projects over the left lower lung. There is no pneumothorax or pleural effusion. Cardiac size is normal. Mediastinal contours are normal. There is no evidence for pulmonary edema. IMPRESSION: No acute cardiopulmonary findings. ACT 112: Negative or not required by law. Electronically signed by: Gibson Peterson M.D. 05/05/2023 9:48 AM Discharge Plan Visit Data Chief Complaint: Confusion Stated Complaint: MENTAL CONFUSION ED Provider: Zacarias Cox Discharge Problem: Altered mental status, COVID-19 Forms Stand Alone Forms: [employer] [facility] Prescriptions Prescriptions: No Action ascorbic acid (vitamin C) [Vitamin C] 500 mg Tablet 500 mg PO QAM Qty: 0 aspirin 81 mg Tablet 81 mg PO QAM Qty: 0 cyanocobalamin (vitamin B-12) [Vitamin B-12] 1,000 mcg Tablet 1,000 mcg PO QAM Qty: 0 atorvastatin 20 mg tablet 20 mg PO QAM lorazepam 0.5 mg tablet 0.25 mg PO DAILY PRN (Reason: Anxiety) buspirone 10 mg tablet 10 mg PO TID mometasone 50 mcg/actuation spray,non-aerosol 2 spray INTRANASAL DAILY PRN (Reason: ALLERGIES) mirtazapine 15 mg tablet 30 mg PO HS metoprolol succinate 25 mg tablet extended release 24 hr 12.5 mg PO PM Vitamin D2 1,000 unit Capsule 1,000 unit PO DAILY magnesium oxide 400 mg PO DAILY Referrals Referrals: Wiliam Moore DO [Physician] - Discharge Problem: Altered mental status Qualifiers: Altered mental status type: unspecified Qualified Code(s): R41.82 - Altered mental status, unspecified
--- NOTE | 2023-05-05 09:49 | XRay Report ---
XR chest 1V portable CLINICAL HISTORY: Chest pain, nonspecific. COMPARISON STUDY: No previous studies for comparison. FINDINGS: Lung volumes are normal. Lungs are clear. Suspected nipple shadow projects over the left lo wer lung. There is no pneumothorax or pleural effusion. Cardiac size is normal. Mediastinal contours are normal. There is no evidence for pulmonary edema. IMPRESSION: No acute cardiopulmonary findings. ACT 112: Negative or not required by law. Electronically signed by: Gibson Peterson M.D. 05/05/2023 9:48 AM
[2023-05-05 10:23] LABS: Basophils # (auto) 0.01 K/uL (0.00-0.20); Basophils % (auto) 0.1 %; Hematocrit (blood only) 37.3 % (42.0-52.0); Hemoglobin 13.3 g/dl (14.0-18.0); Immature Granulocytes # (auto) 0.02 K/uL (0.01-0.20); Immature Granulocytes % (auto) 0.3 %; Lymphocytes # (auto) 1.01 K/uL (1.20-3.40); Lymphocytes % (auto) 13.5 %; Mean Corpuscular Hemoglobin 31.4 pg (25.0-34.0); Mean Corpuscular Hgb Conc 35.7 g/dL (32.0-36.0); Mean Corpuscular Volume 88.2 fL (80.0-100.0); Mean Platelet Volume 10.9 fL (9.4-12.4); Monocytes # (auto) 0.92 K/uL (0.11-0.59); Monocytes % (auto) 12.3 %; Neutrophils # (auto) 5.54 K/uL (1.40-6.50); Neutrophils % (auto) 73.8 %; Platelet Count 162 K/uL (130-400); RDW Coefficient of Variation 12.3 % (11.5-14.5); RDW Standard Deviation 39.8 fL (36.4-46.3); Red Blood Count 4.23 M/uL (4.70-6.10)
[2023-05-05 10:38] LABS: Albumin Globulin Ratio 1.8 (0.9-2); Bilirubin,Total 1.1 mg/dl (0.2-1.0); Calcium 8.4 mg/dl (8.6-10.3); Creatinine Clr Calc Pharmacy 62.4 ml/min; Globulin 2.2 gm/dl (2.5-4.0); Potassium 3.6 mmol/L (3.5-5.1); Total Protein 6.2 gm/dl (6.0-8.3)
--- NOTE | 2023-05-05 10:43 | CT Scan Report ---
CT OF THE HEAD WITHOUT CONTRAST CLINICAL HISTORY: Altered mental status. COMPARISON STUDY: No previous studies for comparison. CT DOSE: 625.8 mGy.cm TECHNIQUE: Helical axial images of the head were obtained without IV contrast. Automated exposure con trol was utilized for the study. A dose lowering technique was utilized adhering to the principles o f ALARA. FINDINGS: No acute intracranial hemorrhage, midline shift or mass effect is present. The ventricular system is unremarkable. The basal cisterns are patent. No extra-axial collections are present. There are no findings to suggest acute dural sinus thrombosis or acute territorial infarct. White matter hy podensities favor small vessel disease. There is mild ethmoid sinus mucosal thickening. IMPRESSION: No acute intracranial findings. ACT 112: Negative or not required by law. Electronically signed by: Gibson Peterson M.D. 05/05/2023 10:41 AM
[2023-05-05 10:44] LABS: Troponin I High Sensitivity 22.7 pg/ml (0-20)
--- NOTE | 2023-05-05 12:32 | Electrocardiogram Report ---
Test Reason : Blood Pressure : / mmHG Vent. Rate : 087 BPM Atrial Rate : 073 BPM P-R Int : 140 ms QRS Dur : 102 ms QT Int : 380 ms P-R-T Axes : 073 064 107 degrees QTc Int : 457 ms Sinus rhythm with occasional , and consecutive Premature ventricular complexes and Premature atrial c omplexes Abnormal ECG When compared with ECG of 09-OCT-1998 14:10, Premature ventricular complexes are now Present Premature atrial complexes are now Present ST now depressed in Inferior leads ST no longer elevated in Anterior leads T wave inversion less evident in Anterior leads Confirmed by Td Grant ([id number]) on 05/05/2023 12:31:46 PM Referred By: REFERRED SELF Confirmed By:Td Grant
--- NOTE | 2023-05-05 12:33 | History & Physical Report ---
Date of Service May 05, 2023 Assessment & Plan (1) COVID-19: Plan: COVID 19 Infection CXR showed no Pneumonia Patient is saturating well on room air Minimal troponin elevation likely secondary to above Check Procalcitonin, CRP Blood Cultures obtained Patient/family prefers to minimize medications as able No plan to start remdesivir, dexamethasone currently Isolation precautions--Airborne/Contact Encourage frequent Proning Nebs PRN Altered mental status Suspected metabolic encephalopathy secondary to COVID, hypercarbia, ? Meds contributing UA not suggestive of UTI Mildly elevated CO2 on VBG CT head showed no acute findings Obtain MRI brain Continue CPAP Consider cardiology evaluation if needed Delirium precautions Hypertension Continue Metoprolol Patient family prefers to minimize medications Monitor BP for now PACs PVCs Apical variant hypertrophic cardiomyopathy Monitor and replace electrolytes as needed Echo pending AGATHA CPAP HS Hyponatremia Will give gentle IV fluids Monitor Sodium levels GURVINDER Panic disorder Depression Patient/family prefers to continue home medications for now Continue BuSpar, Remeron, low dose ativan Consider changing medications if remains confused DVT Px: SCDs for now, MRI pending Code Status Full Code History of Present Illness Chief Complaint: Confused Primary Care Provider: Betty Muñoz MD Patient is a 73-year-old male with history of obstructive sleep apnea on CPAP, generalized anxiety disorder, depression, ocular migraine, GERD, dyslipidemia, apical variant hypertrophic cardiomyopathy as per records and other medical problems presents with history of change in mental status, cough, fever. Patient is oriented during my encounter but still intermittently confused as per family. Most of the history is obtained from patient's over the phone. As per patient's family, patient was noticed to have change in mental status since yesterday after he woke up. He was noted to have low-grade fever as well. noticed patient to have some expressive aphasia and he has been not been using CPAP appropriately. Patient also reports having known expectorant and cough. He also reported numbness in fingers and toes yesterday which currently resolved. Denies any history of chest pain, dyspnea, dizziness, wheezing, hemoptysis, fall, head trauma, syncope, headache, change in vision, slurred speech, facial deformity, nausea, vomiting, abdominal pain, diarrhea, dysuria, hematuria. Allergies Allergy/AdvReac Type Severity Reaction Status Date / Time Iodinated Contrast Media Allergy Mild RASH Verified 05/05/23 11:30 iodine Allergy Mild RASH Verified 05/05/23 11:30 Home Medications Medication Instructions Recorded Confirmed Type ascorbic acid (vitamin C) 500 mg 500 mg PO QAM ##0 02/18/14 05/05/23 History tablet (Vitamin C) aspirin 81 mg tablet 81 mg PO QAM ##0 02/18/14 05/05/23 History cyanocobalamin (vitamin B-12) 1,000 mcg PO QAM #0 tabs 02/19/14 05/05/23 History 1,000 mcg tablet (Vitamin B-12) atorvastatin 20 mg tablet 20 mg PO QAM 05/05/23 05/05/23 History buspirone 10 mg tablet 10 mg PO TID 05/05/23 05/05/23 History ergocalciferol (vitamin D2) 1,000 1,000 unit PO DAILY 05/05/23 05/05/23 History unit capsule lorazepam 0.5 mg tablet 0.25 mg PO DAILY PRN Anxiety 05/05/23 05/05/23 History magnesium oxide 400 mg PO DAILY 05/05/23 05/05/23 History metoprolol succinate 25 mg 12.5 mg PO PM 05/05/23 05/05/23 History tablet,extended release 24 hr mirtazapine 15 mg tablet 30 mg PO HS 05/05/23 05/05/23 History mometasone 50 mcg/actuation nasal 2 spray intranasal DAILY PRN 05/05/23 05/05/23 History spray ALLERGIES Past Med/Surg History Medical History GURVINDER (generalized anxiety disorder) Surgical History History of cataract surgery Family History Mother Cancer Social History Smoking Status: Former smoker Tobacco Type: Cigarettes Hx Alcohol Use: No Hx Substance Use: No Relay Tester Required: No Beliefs That Will Affect Care: None Current Living Situation: Spouse Other Information That Helps Us Care for You: No Feels Safe at Home: Yes Safety Concerns: Feels Safe At This Time Assistive Devices: Glasses and Hearing Aid - Bilateral Review of Systems Review of Systems: All systems reviewed & are unremarkable except as noted in Subjective Physical Exam Physical Exam: Physical Exam: Vitals signs as noted above General Appearance:Moderately built and nourished, no apparent distress Head: normocephalic, Atraumatic Eyes: normal inspection, EOMI Neck: supple, Trachea midline Respiratory/Chest: Decreased breath sounds, CTA, No accessory muscle use Cardiovascular: S1, S2, No murmur Abdomen/GI:Soft, Non tender, Bowel sounds present Extremities/Musculoskeletal:normal inspection, no edema Neurologic/Psych:AAOX2, grossly no focal neurological deficits Skin: normal color, warm Results & Data Results & Data Vital Signs (Past 12 Hours) Vital Signs Temp Pulse Resp BP Pulse Ox O2 Del Method 05/05/23 11:54 86 17 132/109 H 98 05/05/23 10:00 59 L 20 135/73 96 05/05/23 09:52 67 05/05/23 09:49 65 20 95 Room Air 05/05/23 09:09 36.3 C L 82 16 120/67 96 Room Air Laboratory Results Short CBC 05/05/23 Range/Units 09:40 WBC 7.50 (4.8-10.8) K/ul Hgb 13.3 L (14.0-18.0) g/dl Hct 37.3 L (42.0-52.0) % Plt Count 162 (130-400) K/uL BMP 05/05/23 09:40 Sodium 134 L Potassium 3.6 Chloride 101 Carbon Dioxide 24 BUN 15 Creatinine 1.07 Glucose 126 H Calcium 8.4 L Liver Function 05/05/23 Range/Units 09:40 Total Bilirubin 1.1 H (0.2-1.0) mg/dl AST 26 (13-39) U/L ALT 20 (7-52) U/L Alkaline Phosphatase 41 (34-104) U/L Albumin 4.0 (3.4-5.0) gm/dl Urine 05/05/23 Range/Units Unknown Urine Color Yellow Urine Appearance Clear (Clear) Urine pH 7.0 (4.5-7.5) Ur Specific [place] 1.006 (1.000-1.030) Urine Protein Negative (Negative) Urine Glucose (UA) Negative (Negative) Diagnostic Findings CT head:No acute intracranial findings. CXR:No acute cardiopulmonary findings. ECG Additional Comments: EKG: PACs, PVCs, ST changes in inferior leads, QTc 457.
[2023-05-05] MEDS ORDERED: MAGNESIUM SULFATE / D5W 1 GM/100 ML BAG IV ONE (12:37)
[2023-05-05] MEDS ORDERED: POTASSIUM CHLORIDE CRTAB 20 MEQ TABCR PO ONE (12:53)
[2023-05-05] MEDS ORDERED: ALBUT/IPRATROP 3MG/0.5MG NEB 3 ML VIAL NEB PRN (15:15)
[2023-05-05] MEDS ORDERED: FLUTICASONE PROPIONATE NA SPR 16 GM BTL PRN (15:15)
[2023-05-05] MEDS ORDERED: ACETAMINOPHEN 325 MG TAB PO PRN (15:15)
[2023-05-05] MEDS ORDERED: ONDANSETRON INJ 2 MG/ML 2 ML VIAL IV PRN (15:15)
[2023-05-05] MEDS ORDERED: NSS + 20MEQ KCL 20 MEQ/1,000 ML BAG IV ONE (15:15)
[2023-05-05] MEDS ORDERED: guaiFENesin/DEXTROM SYRUP 100MG/10MG 5ML UDC PO PRN (15:15)
[2023-05-05] MEDS ORDERED: POLYETHYLENE (MIRALAX) 17 GM PACK PO PRN (15:15)
[2023-05-05 15:23] LABS: Base Excess VBG 2.4 mEq/L; HCO3 VBG 30 mmol/L; Oxygen Saturation VBG < 60.0 %; PCO2 VBG 58 mmHg (38-50); PO2 VBG < 20 mmHg; pH VBG 7.32 (7.36-7.41)
[2023-05-05 15:34] LABS: Appearance Urine Clear (Clear); Bilirubin Urine Negative (Negative); Blood Urine Negative (Negative); Color Urine Yellow; Glucose Urine UA Negative (Negative); Ketones Urine Negative (Negative); Leukocyte Esterase Urine Negative (Negative); Nitrite Urine Negative (Negative); Protein Urine Negative (Negative); Specific Gravity Urine 1.006 (1.000-1.030); Urobilinogen Urine Negative (Negative)
[2023-05-05 15:44] LABS: Magnesium 2.4 mg/dl (1.7-2.4)
[2023-05-05 15:51] LABS: Troponin I High Sensitivity 28.9 pg/ml (0-20)
--- NOTE | 2023-05-05 16:49 | Magnetic Resonance Report ---
MRI OF THE BRAIN WITHOUT CONTRAST CLINICAL HISTORY: Altered mental status. COMPARISON STUDY: Head CT performed earlier today. TECHNIQUE: Utilizing a 1.5 Taylor magnet and dedicated coil, multiplanar, multiecho imaging of the bra in was performed without IV contrast. FINDINGS: There are no foci of restricted diffusion to suggest acute infarct. No acute intracranial h emorrhage, midline shift or mass effect is present. Ventricular system is unremarkable. Basal cistern s are patent. There are no extra-axial collections. Flow-voids for the major intracranial vessels are present. White matter T2 hyperintense foci favor small vessel disease. Note is made of multiple smal l foci of susceptibility artifact within the brain on the gradient echo sequence. Calvarial signal is normal. There is mild ethmoid sinus mucosal thickening. There is no mastoid fluid. No intracranial m asses identified on unenhanced exam. IMPRESSION: 1. No acute intracranial findings. 2. Multiple small foci of susceptibility artifact on the gradient echo sequence. These favor small fo ci of old blood products or amyloid. ACT 112: Negative or not required by law. Electronically signed by: Gibson Peterson M.D. 05/05/2023 4:47 PM
[2023-05-05] MEDS: busPIRone 5 MG TAB PO SCH ×2 (18:18→20:58)
[2023-05-05] MEDS: METOPROLOL SUCC 25MG EXT REL TAB PO SCH (20:58)
[2023-05-05] MEDS: MIRTAZAPINE TAB 15 MG TAB PO SCH (20:59)
[2023-05-06 06:21] LABS: Basophils # (auto) 0.02 K/uL (0.00-0.20); Basophils % (auto) 0.4 %; Hematocrit (blood only) 39.3 % (42.0-52.0); Hemoglobin 13.6 g/dl (14.0-18.0); Immature Granulocytes # (auto) 0.02 K/uL (0.01-0.20); Immature Granulocytes % (auto) 0.4 %; Lymphocytes % (auto) 17.6 %; Mean Corpuscular Hemoglobin 31.5 pg (25.0-34.0); Mean Corpuscular Hgb Conc 34.6 g/dL (32.0-36.0); Mean Platelet Volume 10.5 fL (9.4-12.4); Monocytes # (auto) 0.74 K/uL (0.11-0.59); Neutrophils % (auto) 68.6 %; Platelet Count 147 K/uL (130-400); RDW Coefficient of Variation 12.5 % (11.5-14.5); RDW Standard Deviation 41.6 fL (36.4-46.3); Red Blood Count 4.32 M/uL (4.70-6.10); White Blood Count 5.68 K/ul (4.8-10.8)
[2023-05-06 06:39] LABS: Albumin Globulin Ratio 1.6 (0.9-2); Albumin Level 3.8 gm/dl (3.4-5.0); BUN Creatinine Ratio 16.2 (10-20); Bilirubin,Total 0.9 mg/dl (0.2-1.0); C Reactive Protein 7.13 mg/dl (0-0.5); Creatinine Clr Calc Pharmacy 65.9 ml/min; Est GFR (African American) 87.8 ml/min; Est GFR (Non-African American) 75.8 ml/min; Globulin 2.4 gm/dl (2.5-4.0); Magnesium 1.9 mg/dl (1.7-2.4); Phosphorus 2.8 mg/dl (2.5-4.9); Potassium 4.2 mmol/L (3.5-5.1); Total Protein 6.2 gm/dl (6.0-8.3)
[2023-05-06] MEDS ORDERED: Nursing to Pharmacy Communication SCH (07:00)
[2023-05-06 07:38] LABS: Estimated Average Glucose 117 mg/dl; Hemoglobin A1C 5.7 % (4.5-5.6)
[2023-05-06] MEDS: busPIRone 5 MG TAB PO SCH ×3 (07:38→17:20)
[2023-05-06] MEDS: ATORVASTATIN 20 MG TAB PO SCH (07:39)
[2023-05-06] MEDS: ASPIRIN 81 MG ECTAB PO SCH (07:39)
[2023-05-06] MEDS: CHOLECALCIFEROL 1,000 UNITS 25 MCG TAB PO SCH (07:39)
[2023-05-06] MEDS: MAGNESIUM OXIDE 400 MG TAB PO SCH (07:39)
[2023-05-06] MEDS: ASCORBIC ACID 500 MG TAB PO SCH (07:39)
[2023-05-06] MEDS: CYANOCOBALAMIN (B-12) 500 MCG TABLET PO SCH (07:40)
[2023-05-06] MEDS ORDERED: CHLORASEPTIC 1.4% SOLN 180 ML BTL MT PRN (10:09)
[2023-05-06] MEDS ORDERED: COUGH DROP (SUGAR FREE) LOZ 24 LOZ/1 BOX BUCCAL PRN (10:09)
--- NOTE | 2023-05-06 12:35 | Hospitalist Progress Note ---
Date of Service May 06, 2023 Assessment & Plan (1) COVID-19: Plan: Patient is a 73-year-old male with history of obstructive sleep apnea on CPAP, generalized anxiety disorder, depression, ocular migraine, GERD, dyslipidemia, apical variant hypertrophic cardiomyopathy admitted with expressive aphasia and confusion in the setting of a covid infection. COVID 19 Infection CXR showed no Pneumonia Patient is saturating well on room air Minimal troponin elevation likely secondary to above Procalcitonin wnl, CRP >7 Blood Cultures with NGTD Patient/family prefers to minimize medications as able No plan to start remdesivir, dexamethasone currently Isolation precautions--Airborne/Contact Encourage frequent Proning Nebs PRN Altered mental status Expressive Aphasia Suspected metabolic encephalopathy secondary to COVID, hypercarbia, possible Meds contributing UA not suggestive of UTI Mildly elevated CO2 on VBG CT head showed no acute findings MRI brain with question of amyloid deposits- consult placed to neurology. Appreciate recs Continue CPAP Delirium precautions Hypertension Continue Metoprolol Patient family prefers to minimize medications Monitor BP for now PACs PVCs Apical variant hypertrophic cardiomyopathy Monitor and replace electrolytes as needed Echo with no acute changes AGATHA CPAP HS Hyponatremia Sodium 134 on admission IV fluids Currently resolved and w/in normal limits GURVINDER Panic disorder Depression Patient/family prefers to continue home medications for now Continue BuSpar, Remeron, low dose ativan Consider changing medications if remains confused Diet: HH DVT Ppx: Lovenox SQ CODE STATUS: Full Code Admission and Anticipated Discharge Date Admission Date: May 05, 2023 Subjective Pt seen with at bedside. Still having word finding difficulty. Pt frustrated. Symptoms started about 72 hours ago. Notes half-way memory intact. Review of Systems Review of Systems: All systems reviewed & are unremarkable except as noted in Subjective Physical Exam Physical Exam: General: Alert, oriented. No acute distress Skin: No noted rashes or bruises Psych: Appropriate mood and affect Neuro: difficulty expressing himself verbally HEENT: NC/AT Chest: Nontender to palpation. CV: RRR, Normal s1, s2. No murmurs appreciated Resp: Breath sounds decreased bilaterally, no increased effort of breathing. Abdomen: Soft, nontender, nondistended. Extremities: No edema in lower extremities bilaterally. Results & Data Results & Data Vital Signs (Past 12 Hours) Vital Signs Temp Pulse Pulse Resp BP Pulse Ox O2 Del Method 05/06/23 12:00 37.0 C 56 L 18 145/75 H 95 Room Air 05/06/23 08:10 37.2 C 62 18 117/78 95 Room Air 05/06/23 08:07 61 05/06/23 08:00 Room Air 05/06/23 04:24 37.0 C 62 17 124/73 92 Room Air
--- NOTE | 2023-05-06 13:27 | Electrocardiogram Report ---
Test Reason : Blood Pressure : / mmHG Vent. Rate : 065 BPM Atrial Rate : 065 BPM P-R Int : 136 ms QRS Dur : 102 ms QT Int : 452 ms P-R-T Axes : 065 052 102 degrees QTc Int : 470 ms Normal sinus rhythm T wave abnormality, consider lateral ischemia Prolonged QT Abnormal ECG When compared with ECG of 05-MAY-2023 09:37, Premature ventricular complexes are no longer Present Premature atrial complexes are no longer Present Confirmed by Td Grant ([id number]) on 05/06/2023 1:26:37 PM Referred By: REFERRED SELF Confirmed By:Td Grant
[2023-05-06] MEDS ORDERED: GADOBUTROL 65ML VIAL IV ONE (17:01)
--- NOTE | 2023-05-06 17:51 | Neurology Consultation ---
Date of Consultation May 06, 2023 Assessment & Plan (1) Expressive aphasia: Expressive aphasia possibly secondary to anxiety Recommend obtain MRI brain with contrast MRA or CTA (with pretreatment given documented allergy) SLT fort cognitive evaluation Plan for continue outpatient follow up Recommend neuropsych testing Continue to monitor/control anxiety Recommend continue positive airway pressure mask at times of sleep Telehealth Consultation Telehealth Information Telehealth Information: I performed this visit using a real-time telehealth connection between my location and the patients location ([facility]). After connecting through interactive tele-video, patient was identified by name and date of and/or wristband check.Patient (or authorized healthcare customer service representative teller) was informed that this was a telemedicine visit and it was being conducted confidentially over secure lines. My office door was closed and no one else was present in the room with me.Patient (or authorized healthcare customer service representative teller) provided consent to proceed with the visit, expressed an understanding of privacy and security of the telemedicine visit, and gave permission to have a hospital customer service representative teller in the room in order to assist with the visit and to conduct portions of the visit, as needed. I informed the patient (or authorized healthcare customer service representative teller) that I reviewed their record and presented the opportunity for them to ask any questions regarding the visit today. The patient agreed to participate. History of Present Illness Reason for Consultation: Expressive aphasia Requesting Physician: Dr. Small Attending Physician: Mela Small MD History of Present Illness 73 year old male presented this admission with complaint of decreased mentation and features of expressive aphasia was febrile and found to be Covid positive. at bedside during televideo consultation helpful as historian. Notably patient has significant history of anxiety. He has difficulty speaking appears to have word finding difficulty and immediately becomes severely anxious. Patient and confirm he was not having this difficulty days ago. Currently able to deny pain or discomfort. describes some forgetfulness over the years but has not had any signs concerning for dementia. She reports searching internet for MRI findings concerning for amyloidosis. 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 I have explained no evidence of stroke to account for new onset features of expressive aphasia. He has no difficulty follow complex/embedded commands. He has difficulty with fluency but does not stutter. Able to deny cephalgia or cervicalgia. Denies hx of intracranial hemorrhage or truama. Denies chest pain/palpitations or shortness of breath. No reported changes in vision hearing dizziness syncope seizure like activity or paresthesia. Denies recent fevers chills nausea vomiting changes in bowels or bladder. Denies recent medication changes. He has reportedly not been consistently utilizing CPAP at home and reports intense migraines (reportedly ocular migraine) happening previously but less intense and less frequently following outpatient management of anxiety with psychiatry team. and patient report photophobia at night so patient no longer drives at night time. There is no reported weakness or difficulty with ambulation or coordination I have explained my recommendation to undergo MRI brain with contrast as well as a vascular study of cerebrovascular. I also recommend Speech therapy to perform cognitive evaluation and recommend continued outpatient follow up with adult neurology Allergies Allergy/AdvReac Type Severity Reaction Status Date / Time Iodinated Contrast Media Allergy Mild RASH Verified 05/05/23 11:30 iodine Allergy Mild RASH Verified 05/05/23 11:30 Home Medications Medication Instructions Recorded Confirmed Type ascorbic acid (vitamin C) 500 mg 500 mg PO QAM ##0 02/18/14 05/05/23 History tablet (Vitamin C) aspirin 81 mg tablet 81 mg PO QAM ##0 02/18/14 05/05/23 History cyanocobalamin (vitamin B-12) 1,000 mcg PO QAM #0 tabs 02/19/14 05/05/23 History 1,000 mcg tablet (Vitamin B-12) atorvastatin 20 mg tablet 20 mg PO QAM 05/05/23 05/05/23 History buspirone 10 mg tablet 10 mg PO TID 05/05/23 05/05/23 History ergocalciferol (vitamin D2) 1,000 1,000 unit PO DAILY 05/05/23 05/05/23 History unit capsule lorazepam 0.5 mg tablet 0.25 mg PO DAILY PRN Anxiety 05/05/23 05/05/23 History magnesium oxide 400 mg PO DAILY 05/05/23 05/05/23 History metoprolol succinate 25 mg 12.5 mg PO PM 05/05/23 05/05/23 History tablet,extended release 24 hr mirtazapine 15 mg tablet 30 mg PO HS 05/05/23 05/05/23 History mometasone 50 mcg/actuation nasal 2 spray intranasal DAILY PRN 05/05/23 05/05/23 History spray ALLERGIES Patient History Medical History GURVINDER (generalized anxiety disorder) Surgical History History of cataract surgery Family History Mother Cancer Social History Smoking Status: Former smoker Tobacco Type: Cigarettes Hx Alcohol Use: No Hx Substance Use: No Qa Internship Required: No Beliefs That Will Affect Care: None Current Living Situation: Spouse Other Information That Helps Us Care for You: No Feels Safe at Home: Yes Safety Concerns: Feels Safe At This Time Assistive Devices: Glasses and Hearing Aid - Bilateral Physical Exam Neurological Examination: Mental Status: Awake and alert. Oriented to person, place, and time. Slowed fluency/ expressive aphasia Affect remains appropriate. CN testing: I: Denies changes in ability to smell II:Reports no changes in visual acuity III/IV/: No evidence of gaze preference, hippus, nystagmus or roving eye movements V: Facial sensation reportedly grossly intact to light touch bilaterally VII: Facial movements appear without evidence of asymmetry VIII: Hearing appears grossly intact to loud voice bilaterally IX/X: Palate appears to elevate symmetrically XI: Shoulder shrug appears symmetric/ grossly intact bilaterally XII: Tongue protrudes midline without evidence of biting Motor exam: Strength appears grossly intact/symmetric in all extremities Sensory: Sensation is reportedly grossly intact throughout Coordination: Finger to nose and heel to prasad were intact. No apparent evidence of dysmetria or dysdiadochokinesia Reflexes: Deferred Gait: Deferred Results & Data Vital Signs (Past 12 Hours) Vital Signs Temp Pulse Pulse Resp BP Pulse Ox O2 Del Method 05/06/23 16:08 58 L 05/06/23 12:00 37.0 C 56 L 18 145/75 H 95 Room Air 05/06/23 08:10 37.2 C 62 18 117/78 95 Room Air 05/06/23 08:07 61 05/06/23 08:00 Room Air Laboratory Results Abnormal lab results 05/05/23 05/05/23 05/06/23 Range/Units 19:30 21:22 05:47 RBC 4.32 L (4.70-6.10) M/uL Hgb 13.6 L (14.0-18.0) g/dl Hct 39.3 L (42.0-52.0) % Lymph # (Auto) 1.00 L (1.20-3.40) K/uL Mccormick # (Auto) 0.74 H (0.11-0.59) K/uL Hemoglobin A1c 5.7 H (4.5-5.6) % Calcium 8.0 L (8.6-10.3) mg/dl Troponin I High Sens 30.2 H 31.2 H (0-20) pg/ml C-Reactive Protein 7.13 H (0-0.5) mg/dl Globulin 2.4 L (2.5-4.0) gm/dl Diagnostic Findings Head MRA 05/06/23 13:37 Brain MRA HISTORY: expressive aphasia TECHNIQUE: 3-D [id number] MRA of the brain was performed without contrast. COMPARISON STUDY: Brain MRI 05/05/2023. FINDINGS: Visualized intracranial internal carotid arteries, distal vertebral arteries, and basilar artery are widely patent. There is no significant stenosis, occlusion, or aneurysm seen within the bilateral ACAs, MCAs, or recruitment assistant. Hypoplastic distal right vertebral artery terminates into the right posterior inferior cerebellar artery. This is considered to be a normal variant. IMPRESSION: No significant stenosis, occlusion, or aneurysm within the [place]. ACT 112: Negative or not required by law. Electronically signed by: Agustin Harris M.D. 05/06/2023 5:50 PM Neck MRA 05/06/23 13:37 NECK MRA HISTORY: expressive aphasia TECHNIQUE: [id number] and gadolinium-enhanced MRA of the neck was performed both before and after the intravenous administration of contrast. All measurements were calculated based on NASCET criteria. COMPARISON STUDY: None. FINDINGS: The aortic arch and proximal great vessels are widely patent. There is no significant stenosis, occlusion, or dissection identified within the bilateral common carotid, internal carotid, or vertebral arteries. Incidental note is made of a hypoplastic right vertebral artery. IMPRESSION: No significant stenosis, occlusion, or dissection identified within the carotid or vertebral arteries. ACT 112: Negative or not required by law. Electronically signed by: Agustin Harris M.D. 05/06/2023 5:53 PM Medications Administered Home Medications Medication Instructions Recorded Confirmed Last Taken ascorbic acid (vitamin C) 500 mg 500 mg PO QAM ##0 02/18/14 05/05/23 05/04/23 tablet (Vitamin C) aspirin 81 mg tablet 81 mg PO QAM ##0 02/18/14 05/05/23 05/04/23 cyanocobalamin (vitamin B-12) 1,000 mcg PO QAM #0 tabs 02/19/14 05/05/23 05/04/23 1,000 mcg tablet (Vitamin B-12) atorvastatin 20 mg tablet 20 mg PO QAM 05/05/23 05/05/23 05/04/23 buspirone 10 mg tablet 10 mg PO TID 05/05/23 05/05/23 05/05/23 ergocalciferol (vitamin D2) 1,000 1,000 unit PO DAILY 05/05/23 05/05/23 Unknown unit capsule lorazepam 0.5 mg tablet 0.25 mg PO DAILY PRN Anxiety 05/05/23 05/05/23 Unknown magnesium oxide 400 mg PO DAILY 05/05/23 05/05/23 Unknown metoprolol succinate 25 mg 12.5 mg PO PM 05/05/23 05/05/23 05/04/23 tablet,extended release 24 hr mirtazapine 15 mg tablet 30 mg PO HS 05/05/23 05/05/23 05/04/23 mometasone 50 mcg/actuation nasal 2 spray intranasal DAILY PRN 05/05/23 05/05/23 Unknown spray ALLERGIES Active Medications Generic Name Dose Route Start Last Admin Trade Name Isidoro PRN Reason Stop Dose Admin Ascorbic Acid 500 mg 05/06/23 09:00 05/06/23 07:39 Ascorbic Acid 500 Mg Tab PO 06/05/23 08:59 500 mg QAM POWER Administration Aspirin 81 mg 05/06/23 09:00 05/06/23 07:39 Aspirin 81 Mg Ectab PO 06/05/23 08:59 81 mg QAM POWER Administration Atorvastatin Calcium 20 mg 05/06/23 09:00 05/06/23 07:39 Atorvastatin 20 Mg Tab PO 06/05/23 08:59 20 mg QAM POWER Administration Buspirone HCl 10 mg 05/06/23 07:00 05/06/23 17:20 Buspirone 5 Mg Tab PO 06/05/23 06:59 10 mg TID@0700,1200,1700 POWER Administration Cyanocobalamin 1,000 mcg 05/06/23 09:00 05/06/23 07:40 Cyanocobalamin (B-12) 500 Mcg Tablet PO 06/05/23 08:59 1,000 mcg QAM POWER Administration Magnesium Oxide 400 mg 05/06/23 09:00 05/06/23 07:39 Magnesium Oxide 400 Mg Tab PO 06/05/23 08:59 400 mg DAILY POWER Administration Menthol 1 janessa 05/06/23 10:09 05/06/23 12:12 Cough Drop (Sugar Free) Janessa 24 Janessa/1 Box BUCCAL 06/05/23 10:08 1 janessa Q4H PRN Administration Sore Throat Metoprolol Succinate 12.5 mg 05/05/23 21:00 05/05/23 20:58 Metoprolol Succ 25mg Ext Rel Tab PO 06/04/23 20:59 12.5 mg PM POWER Administration Mirtazapine 30 mg 05/05/23 21:00 05/05/23 20:59 Mirtazapine Tab 15 Mg Tab PO 06/04/23 20:59 30 mg HS POWER Administration Vitamin D 1,000 units 05/06/23 09:00 05/06/23 07:39 Cholecalciferol 1,000 Units 25 Mcg Tab PO 06/05/23 08:59 1,000 units DAILY POWER Administration
--- NOTE | 2023-05-06 17:53 | Magnetic Resonance Report ---
Brain MRA HISTORY: expressive aphasia TECHNIQUE: 3-D [id number] MRA of the brain was performed without contrast. COMPARISON STUDY: Brain MRI 05/05/2023. FINDINGS: Visualized intracranial internal carotid arteries, distal vertebral arteries, and basilar a rtery are widely patent. 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 Hypoplastic distal right vertebral artery terminates into the right poste rior inferior cerebellar artery. This is considered to be a normal variant. IMPRESSION: No significant stenosis, occlusion, or aneurysm within the [place]. ACT 112: Negative or not required by law. Electronically signed by: Agustin Harris M.D. 05/06/2023 5:50 PM
--- NOTE | 2023-05-06 17:56 | Magnetic Resonance Report ---
NECK MRA HISTORY: expressive aphasia TECHNIQUE: [id number] and gadolinium-enhanced MRA of the neck was performed both before and after the intravenous administration of contrast. All measurements were calculated based on NASCET criteri a. COMPARISON STUDY: None. FINDINGS: The aortic arch and proximal great vessels are widely patent. There is no significant sten osis, occlusion, or dissection identified within the bilateral common carotid, internal carotid, or v ertebral arteries. Incidental note is made of a hypoplastic right vertebral artery. IMPRESSION: No significant stenosis, occlusion, or dissection identified within the carotid or vertebral arteries . ACT 112: Negative or not required by law. Electronically signed by: Agustin Harris M.D. 05/06/2023 5:53 PM
[2023-05-06] MEDS: MIRTAZAPINE TAB 15 MG TAB PO SCH (21:02)
[2023-05-06] MEDS: METOPROLOL SUCC 25MG EXT REL TAB PO SCH (21:02)
[2023-05-06] MEDS ORDERED: ENOXAPARIN INJ 40 MG/0.4 ML SYR SQ SCH (22:00)
[2023-05-07] MEDS: ENOXAPARIN INJ 40 MG/0.4 ML SYR SQ SCH (07:39)
[2023-05-07] MEDS: CYANOCOBALAMIN (B-12) 500 MCG TABLET PO SCH (07:40)
[2023-05-07] MEDS: ASPIRIN 81 MG ECTAB PO SCH (07:40)
[2023-05-07] MEDS: ASCORBIC ACID 500 MG TAB PO SCH (07:40)
[2023-05-07] MEDS: CHOLECALCIFEROL 1,000 UNITS 25 MCG TAB PO SCH (07:40)
[2023-05-07] MEDS: MAGNESIUM OXIDE 400 MG TAB PO SCH (07:41)
[2023-05-07] MEDS: ATORVASTATIN 20 MG TAB PO SCH (07:41)
[2023-05-07] MEDS: busPIRone 5 MG TAB PO SCH ×3 (07:41→16:54)
[2023-05-07 08:40] LABS: Basophils # (auto) 0.02 K/uL (0.00-0.20); Basophils % (auto) 0.4 %; Eosinophils # (auto) 0.06 K/uL (0.00-0.50); Eosinophils % (auto) 1.1 %; Hematocrit (blood only) 38.3 % (42.0-52.0); Hemoglobin 13.3 g/dl (14.0-18.0); Immature Granulocytes # (auto) 0.02 K/uL (0.01-0.20); Immature Granulocytes % (auto) 0.4 %; Lymphocytes % (auto) 27.7 %; Mean Corpuscular Hemoglobin 31.4 pg (25.0-34.0); Mean Corpuscular Hgb Conc 34.7 g/dL (32.0-36.0); Mean Corpuscular Volume 90.3 fL (80.0-100.0); Mean Platelet Volume 10.4 fL (9.4-12.4); Monocytes # (auto) 0.66 K/uL (0.11-0.59); Monocytes % (auto) 12.2 %; Neutrophils # (auto) 3.15 K/uL (1.40-6.50); Neutrophils % (auto) 58.2 %; Platelet Count 154 K/uL (130-400); RDW Coefficient of Variation 12.5 % (11.5-14.5); RDW Standard Deviation 40.9 fL (36.4-46.3); Red Blood Count 4.24 M/uL (4.70-6.10); White Blood Count 5.41 K/ul (4.8-10.8)
[2023-05-07 08:52] LABS: Albumin Globulin Ratio 1.6 (0.9-2); Albumin Level 3.7 gm/dl (3.4-5.0); BUN Creatinine Ratio 15.2 (10-20); Bilirubin,Total 0.7 mg/dl (0.2-1.0); Calcium 8.4 mg/dl (8.6-10.3); Creatinine Clr Calc Pharmacy 64.9 ml/min; Est GFR (African American) 87.8 ml/min; Est GFR (Non-African American) 75.8 ml/min; Globulin 2.3 gm/dl (2.5-4.0); Magnesium 1.9 mg/dl (1.7-2.4); Phosphorus 2.4 mg/dl (2.5-4.9)
[2023-05-07] MEDS: LORazepam 0.5 MG TAB PO PRN (09:31)
[2023-05-07] MEDS ORDERED: POT PHOSPHATE MONOBASIC W/ SOD TAB PO ONE (09:48)
--- NOTE | 2023-05-07 12:46 | Electrocardiogram Report ---
Test Reason : Blood Pressure : / mmHG Vent. Rate : 056 BPM Atrial Rate : 056 BPM P-R Int : 128 ms QRS Dur : 100 ms QT Int : 472 ms P-R-T Axes : 068 057 096 degrees QTc Int : 455 ms Sinus bradycardia T wave abnormality, consider anterolateral ischemia Abnormal ECG When compared with ECG of 06-MAY-2023 06:20, T wave inversion more evident in Anterior leads Confirmed by Td Grant ([id number]) on 05/07/2023 12:46:06 PM Referred By: REFERRED SELF Confirmed By:Td Garnt
--- NOTE | 2023-05-07 13:51 | Hospitalist Progress Note ---
Date of Service May 07, 2023 Assessment & Plan (1) COVID-19: Plan: Patient is a 73-year-old male with history of obstructive sleep apnea on CPAP, generalized anxiety disorder, depression, ocular migraine, GERD, dyslipidemia, apical variant hypertrophic cardiomyopathy admitted with expressive aphasia and confusion in the setting of a covid infection. COVID 19 Infection CXR showed no Pneumonia Patient is saturating well on room air Minimal troponin elevation likely secondary to above Procalcitonin wnl, CRP >7 Blood Cultures with NGTD Patient/family prefers to minimize medications as able No plan to start remdesivir, dexamethasone currently Isolation precautions--Airborne/Contact Encourage frequent Proning Nebs PRN Altered mental status Expressive Aphasia Suspected metabolic encephalopathy secondary to COVID, hypercarbia, possible Meds contributing UA not suggestive of UTI Mildly elevated CO2 on VBG CT head showed no acute findings MRI brain with question of amyloid deposits Consult placed to neurology. Appreciate recs -MRA ordered, no acute findings -consider MRI brain with contrast -recommended Neuro and neuropsych close followup after d/c -stated that expressive aphasia possibly secondary to anxiety -speech consult- speech recommending outpt speech evaluation and rx -Continue to monitor/control anxiety -continue CPAP mask at times of sleep Delirium precautions. Frequent reorientation, avoid sedating medications Hypertension Continue Metoprolol Patient family prefers to minimize medications Monitor BP for now PACs PVCs Apical variant hypertrophic cardiomyopathy Monitor and replace electrolytes as needed Echo with no acute changes AGATHA CPAP HS Hyponatremia Sodium 134 on admission IV fluids Currently resolved and w/in normal limits GURVINDER Panic disorder Depression Patient/family prefers to continue home medications for now Continue BuSpar, Remeron, low dose ativan Consider changing medications if remains confused Diet: HH DVT Ppx: Lovenox SQ CODE STATUS: Full Code Dispo: Home with home health services Admission and Anticipated Discharge Date Admission Date: May 05, 2023 Subjective Pt seen with at bedside. Still having word finding difficulty. states she will have difficulty at home with him due to the confusion, would like CM assistance with help at home. Review of Systems Review of Systems: All systems reviewed & are unremarkable except as noted in Subjective Physical Exam Physical Exam: General: Alert, oriented. No acute distress Skin: No noted rashes or bruises Psych: Appropriate mood and affect Neuro: difficulty expressing himself verbally HEENT: NC/AT Chest: Nontender to palpation. CV: RRR, Normal s1, s2. No murmurs appreciated Resp: Breath sounds decreased bilaterally, no increased effort of breathing. Abdomen: Soft, nontender, nondistended. Extremities: No edema in lower extremities bilaterally. Results & Data Results & Data Vital Signs (Past 12 Hours) Vital Signs Temp Pulse Pulse Resp BP BP Pulse Ox 05/07/23 11:58 36.7 C 63 18 143/88 H 96 05/07/23 08:00 05/07/23 07:29 36.7 C 60 18 118/70 96 05/07/23 07:17 55 L 05/07/23 03:16 36.7 C 62 17 101/60 96 O2 Del Method 05/07/23 11:58 Room Air 05/07/23 08:00 Room Air 05/07/23 07:29 Room Air 05/07/23 07:17 05/07/23 03:16 Room Air
[2023-05-07 19:21] VITALS: RESP 18
[2023-05-07] MEDS: MIRTAZAPINE TAB 15 MG TAB PO SCH (20:58)
[2023-05-07] MEDS: METOPROLOL SUCC 25MG EXT REL TAB PO SCH (20:58)
[2023-05-08] MEDS: busPIRone 5 MG TAB PO SCH ×2 (07:23→12:05)
[2023-05-08] MEDS: ENOXAPARIN INJ 40 MG/0.4 ML SYR SQ SCH (07:23)
[2023-05-08] MEDS: CYANOCOBALAMIN (B-12) 500 MCG TABLET PO SCH (07:24)
[2023-05-08] MEDS: ATORVASTATIN 20 MG TAB PO SCH (07:24)
[2023-05-08] MEDS: CHOLECALCIFEROL 1,000 UNITS 25 MCG TAB PO SCH (07:24)
[2023-05-08] MEDS: ASCORBIC ACID 500 MG TAB PO SCH (07:24)
[2023-05-08] MEDS: ASPIRIN 81 MG ECTAB PO SCH (07:24)
[2023-05-08] MEDS: MAGNESIUM OXIDE 400 MG TAB PO SCH (07:24)
[2023-05-08 08:22] VITALS: TEMP 98.2
[2023-05-08 08:34] LABS: Basophils # (auto) 0.02 K/uL (0.00-0.20); Basophils % (auto) 0.5 %; Eosinophils # (auto) 0.09 K/uL (0.00-0.50); Eosinophils % (auto) 2.4 %; Hematocrit (blood only) 38.5 % (42.0-52.0); Hemoglobin 13.4 g/dl (14.0-18.0); Lymphocytes # (auto) 1.25 K/uL (1.20-3.40); Lymphocytes % (auto) 33.7 %; Mean Corpuscular Hemoglobin 31.4 pg (25.0-34.0); Mean Corpuscular Hgb Conc 34.8 g/dL (32.0-36.0); Mean Corpuscular Volume 90.2 fL (80.0-100.0); Mean Platelet Volume 10.5 fL (9.4-12.4); Monocytes % (auto) 10.8 %; Neutrophils # (auto) 1.95 K/uL (1.40-6.50); Neutrophils % (auto) 52.6 %; Platelet Count 165 K/uL (130-400); RDW Coefficient of Variation 12.2 % (11.5-14.5); RDW Standard Deviation 40.1 fL (36.4-46.3); Red Blood Count 4.27 M/uL (4.70-6.10); White Blood Count 3.71 K/ul (4.8-10.8)
[2023-05-08 08:48] LABS: Albumin Globulin Ratio 1.5 (0.9-2); Albumin Level 3.7 gm/dl (3.4-5.0); BUN Creatinine Ratio 18.3 (10-20); Bilirubin,Total 0.7 mg/dl (0.2-1.0); Calcium 8.7 mg/dl (8.6-10.3); Creatinine Clr Calc Pharmacy 76.2 ml/min; Est GFR (African American) 102.4 ml/min; Est GFR (Non-African American) 88.3 ml/min; Globulin 2.4 gm/dl (2.5-4.0); Magnesium 1.8 mg/dl (1.7-2.4); Phosphorus 3.1 mg/dl (2.5-4.9); Potassium 3.7 mmol/L (3.5-5.1); Total Protein 6.1 gm/dl (6.0-8.3)
[2023-05-08] MEDS: LORazepam 0.5 MG TAB PO PRN (10:36)
[2023-05-08 11:32] VITALS: PULSE 53; O2SAT 97
--- NOTE | 2023-05-08 13:15 | Hospitalist Progress Note ---
Date of Service May 08, 2023 Assessment & Plan (1) COVID-19: Plan: Patient is a 73-year-old male with history of obstructive sleep apnea on CPAP, generalized anxiety disorder, depression, ocular migraine, GERD, dyslipidemia, apical variant hypertrophic cardiomyopathy admitted with expressive aphasia and confusion in the setting of a covid infection. COVID 19 Infection CXR showed no Pneumonia Patient is saturating well on room air Minimal troponin elevation likely secondary to above Procalcitonin wnl, CRP >7 Blood Cultures with NGTD Patient/family prefers to minimize medications as able No plan to start remdesivir, dexamethasone currently Isolation precautions--Airborne/Contact Encourage frequent Proning Nebs PRN Altered mental status Expressive Aphasia Suspected metabolic encephalopathy secondary to COVID, hypercarbia, possible Meds contributing UA not suggestive of UTI Mildly elevated CO2 on VBG CT head showed no acute findings MRI brain with question of amyloid deposits Consult placed to neurology. Appreciate recs -MRA ordered, no acute findings -consider MRI brain with contrast -recommended Neuro and neuropsych close followup after d/c -stated that expressive aphasia possibly secondary to anxiety -speech consult- speech recommending outpt speech evaluation and rx -Continue to monitor/control anxiety -continue CPAP mask at times of sleep Delirium precautions. Frequent reorientation, avoid sedating medications Hypertension Continue Metoprolol Patient family prefers to minimize medications Monitor BP for now PACs PVCs Apical variant hypertrophic cardiomyopathy Monitor and replace electrolytes as needed Echo with no acute changes AGATHA CPAP HS Hyponatremia Sodium 134 on admission IV fluids Currently resolved and w/in normal limits GURVINDER Panic disorder Depression Patient/family prefers to continue home medications for now Continue BuSpar, Remeron, low dose ativan Consider changing medications if remains confused Diet: HH DVT Ppx: Lovenox SQ CODE STATUS: Full Code Dispo: Home with home health services Admission and Anticipated Discharge Date Admission Date: May 05, 2023 Physical Exam Physical Exam: General: Alert, oriented. No acute distress Skin: No noted rashes or bruises Psych: Appropriate mood and affect Neuro: difficulty expressing himself verbally HEENT: NC/AT Chest: Nontender to palpation. CV: RRR, Normal s1, s2. No murmurs appreciated Resp: Breath sounds decreased bilaterally, no increased effort of breathing. Abdomen: Soft, nontender, nondistended. Extremities: No edema in lower extremities bilaterally. Results & Data Results & Data Vital Signs (Past 12 Hours) Vital Signs Temp Pulse Pulse Resp BP Pulse Ox O2 Del Method 05/08/23 11:31 36.8 C 53 L 18 136/68 97 Room Air 05/08/23 08:20 36.8 C 51 L 18 111/70 96 Room Air 05/08/23 08:00 47 L 05/08/23 08:00 Room Air 05/08/23 04:39 36.7 C 55 L 18 137/75 96 Room Air
--- NOTE | 2023-05-08 13:42 | Discharge Summary ---
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 Patient is oriented during my encounter but still intermittently confused as per family. Most of the history is obtained from patient's over the phone. As per patient's family, patient was noticed to have change in mental status since yesterday after he woke up. He was noted to have low-grade fever as well. noticed patient to have some expressive aphasia and he has been not been using CPAP appropriately. Patient also reports having known expectorant and cough. He also reported numbness in fingers and toes yesterday which currently resolved. Denies any history of chest pain, dyspnea, dizziness, wheezing, hemoptysis, fall, head trauma, syncope, headache, change in vision, slurred speech, facial deformity, nausea, vomiting, abdominal pain, diarrhea, dysuria, hematuria. Admission Exam Per Admitting Provider Vitals signs as noted above General Appearance:Moderately built and nourished, no apparent distress Head: normocephalic, Atraumatic Eyes: normal inspection, EOMI Neck: supple, Trachea midline Respiratory/Chest: Decreased breath sounds, CTA, No accessory muscle use Cardiovascular: S1, S2, No murmur Abdomen/GI:Soft, Non tender, Bowel sounds present Extremities/Musculoskeletal:normal inspection, no edema Neurologic/Psych:AAOX2, grossly no focal neurological deficits Skin: normal color, warm Principal Dx & Hospital Course #1 = Principal Diagnosis (1) Expressive aphasia: (2) GURVINDER (generalized anxiety disorder): (3) History of cataract surgery: (4) COVID-19: (5) Altered mental status: Plan Patient is a 73-year-old male with history of obstructive sleep apnea on CPAP, generalized anxiety disorder, depression, ocular migraine, GERD, dyslipidemia, apical variant hypertrophic cardiomyopathy admitted with expressive aphasia and confusion in the setting of a covid infection. COVID 19 Infection CXR showed no Pneumonia Patient saturated well on room air, did not require oxygen supplementation at any time Minimal troponin elevation likely secondary to above Procalcitonin wnl, CRP >7 Blood Cultures with NGTD Patient/family prefered to minimize medications as able Did not want remdesivir or dexamethasone which were not indicated given no increased oxygen requirement Isolation precautions--Airborne/Contact Nebulizers PRN PCP followup after discharge Altered mental status Expressive Aphasia Suspected metabolic encephalopathy secondary to COVID, hypercarbia, possible meds such as lorazepam contributing UA not suggestive of UTI Mildly elevated CO2 on VBG CT head showed no acute findings MRI brain without contrast with a question of amyloid deposits Consult placed to neurology. Appreciate recs -MRA ordered as advised- no acute findings noted -consider MRI brain with contrast outpatient if symptoms persist or worsen -recommended Neuro and neuropsych close followup after discharge -suggested that expressive aphasia possibly secondary to anxiety -speech consult- speech recommending outpt speech evaluation and rx -Continue to monitor/control anxiety -continue CPAP mask at times of sleep Delirium precautions. Frequent reorientation, avoid sedating medications Rash Pt with concern for itching and rash on his back Prescribed Triamcinolone cream for use at home upon discharge PCP followup Hyponatremia Sodium 134 on admission IV fluids Currently resolved and w/in normal limits Sodium 140 on discharge Continue to monitor after discharge Hypertension Continue Metoprolol Patient family prefers to minimize medications Monitor BP PCP follow up PACs PVCs Apical variant hypertrophic cardiomyopathy Monitor and repleted electrolytes as needed Echo with no acute changes AGATHA CPAP HS, continue GURVINDER Panic disorder Depression Patient/family prefers to continue home medications for now Continue BuSpar, Remeron, low dose ativan Consider changing medications if remains confused PCP follow up Discharge Exam General: Alert, oriented. No acute distress Skin: faint maculopapular eruption noted on the back Psych: Appropriate mood and affect Neuro: difficulty expressing himself verbally HEENT: NC/AT Chest: Nontender to palpation. CV: RRR, Normal s1, s2. No murmurs appreciated Resp: Breath sounds decreased bilaterally, no increased effort of breathing. Abdomen: Soft, nontender, nondistended. Extremities: No edema in lower extremities bilaterally. Updated Medication List Medication Instructions Recorded Confirmed Type ascorbic acid (vitamin C) 500 mg 500 mg PO QAM ##0 02/18/14 05/05/23 History tablet (Vitamin C) aspirin 81 mg tablet 81 mg PO QAM ##0 02/18/14 05/05/23 History cyanocobalamin (vitamin B-12) 1,000 mcg PO QAM #0 tabs 02/19/14 05/05/23 History 1,000 mcg tablet (Vitamin B-12) atorvastatin 20 mg tablet 20 mg PO QAM 05/05/23 05/05/23 History buspirone 10 mg tablet 10 mg PO TID 05/05/23 05/05/23 History ergocalciferol (vitamin D2) 1,000 1,000 unit PO DAILY 05/05/23 05/05/23 History unit capsule lorazepam 0.5 mg tablet 0.25 mg PO DAILY PRN Anxiety 05/05/23 05/05/23 History magnesium oxide 400 mg PO DAILY 05/05/23 05/05/23 History metoprolol succinate 25 mg 12.5 mg PO PM 05/05/23 05/05/23 History tablet,extended release 24 hr mirtazapine 15 mg tablet 30 mg PO HS 05/05/23 05/05/23 History mometasone 50 mcg/actuation nasal 2 spray intranasal DAILY PRN 05/05/23 05/05/23 History spray ALLERGIES triamcinolone acetonide 0.1 % 1 applic topical BID #30 grams 05/08/23 Rx topical cream Hospital Stay Data Consultations 05/05/23 11:09 ED Decision to Admit Stat 05/06/23 10:07 Consult Neurology Routine Diagnostic Imagining Performed 05/05/23 09:24 CT head/brain wo con Stat 05/05/23 15:15 MRI Brain [MR brain wo con] Routine 05/06/23 13:37 MRI Angio Head [MR angio head wo con] Urgent MRI Angio Neck [MR angio neck wo/w con] Urgent Head CT 05/05/23 09:24 CT OF THE HEAD WITHOUT CONTRAST CLINICAL HISTORY: Altered mental status. COMPARISON STUDY: No previous studies for comparison. CT DOSE: 625.8 mGy.cm TECHNIQUE: Helical axial images of the head were obtained without IV contrast. Automated exposure control was utilized for the study. A dose lowering technique was utilized adhering to the principles of ALARA. FINDINGS: No acute intracranial hemorrhage, midline shift or mass effect is present. The ventricular system is unremarkable. The basal cisterns are patent. No extra-axial collections are present. There are no findings to suggest acute dural sinus thrombosis or acute territorial infarct. White matter hypodensities favor small vessel disease. There is mild ethmoid sinus mucosal thickening. IMPRESSION: No acute intracranial findings. ACT 112: Negative or not required by law. Electronically signed by: Gibson Peterson M.D. 05/05/2023 10:41 AM Chest X-Ray 05/05/23 09:25 XR chest 1V portable CLINICAL HISTORY: Chest pain, nonspecific. COMPARISON STUDY: No previous studies for comparison. FINDINGS: Lung volumes are normal. Lungs are clear. Suspected nipple shadow projects over the left lower lung. There is no pneumothorax or pleural effusion. Cardiac size is normal. Mediastinal contours are normal. There is no evidence for pulmonary edema. IMPRESSION: No acute cardiopulmonary findings. ACT 112: Negative or not required by law. Electronically signed by: Gibson Peterson M.D. 05/05/2023 9:48 AM Brain MRI 05/05/23 15:15 MRI OF THE BRAIN WITHOUT CONTRAST CLINICAL HISTORY: Altered mental status. COMPARISON STUDY: Head CT performed earlier today. TECHNIQUE: Utilizing a 1.5 Taylor magnet and dedicated coil, multiplanar, multiecho imaging of the brain was performed without IV contrast. FINDINGS: There are no foci of restricted diffusion to suggest acute infarct. No acute intracranial hemorrhage, midline shift or mass effect is present. Ventricular system is unremarkable. Basal cisterns are patent. There are no extra-axial collections. Flow-voids for the major intracranial vessels are present. White matter T2 hyperintense foci favor small vessel disease. Note is made of multiple small foci of susceptibility artifact within the brain on the gradient echo sequence. Calvarial signal is normal. There is mild ethmoid sinus mucosal thickening. There is no mastoid fluid. No intracranial masses identified on unenhanced exam. IMPRESSION: 1. No acute intracranial findings. 2. Multiple small foci of susceptibility artifact on the gradient echo sequence. These favor small foci of old blood products or amyloid. ACT 112: Negative or not required by law. Electronically signed by: Gibson Peterson M.D. 05/05/2023 4:47 PM Head MRA 05/06/23 13:37 Brain MRA HISTORY: expressive aphasia TECHNIQUE: 3-D [id number] MRA of the brain was performed without contrast. COMPARISON STUDY: Brain MRI 05/05/2023. FINDINGS: Visualized intracranial internal carotid arteries, distal vertebral arteries, and basilar artery are widely patent. There is no significant stenosis, occlusion, or aneurysm seen within the bilateral ACAs, MCAs, or chicken handler. Hypoplastic distal right vertebral artery terminates into the right posterior inferior cerebellar artery. This is considered to be a normal variant. IMPRESSION: No significant stenosis, occlusion, or aneurysm within the [place]. ACT 112: Negative or not required by law. Electronically signed by: Agustin Harris M.D. 05/06/2023 5:50 PM Neck MRA 05/06/23 13:37 NECK MRA HISTORY: expressive aphasia TECHNIQUE: [id number] and gadolinium-enhanced MRA of the neck was performed both before and after the intravenous administration of contrast. All measurements were calculated based on NASCET criteria. COMPARISON STUDY: None. FINDINGS: The aortic arch and proximal great vessels are widely patent. There is no significant stenosis, occlusion, or dissection identified within the bilateral common carotid, internal carotid, or vertebral arteries. Incidental note is made of a hypoplastic right vertebral artery. IMPRESSION: No significant stenosis, occlusion, or dissection identified within the carotid or vertebral arteries. ACT 112: Negative or not required by law. Electronically signed by: Agustin Harris M.D. 05/06/2023 5:53 PM Pending Results Patient Have Any Pending Studies at Discharge: No Discharge Instructions Given to Patient (Per Discharging Provider) Mr. Sorensen, Perfecto were admitted with confusion and an inability to express yourself verbally in the setting of covid infection. You have remained stable with your covid infection. Continue to self isolate for a total of 10 days from the start of your symptoms. We are testing you for Lyme Disease and if positive will follow up with you for next steps. You were seen by a Neurologist for the expressive aphasia. They were concerned that your symptoms might be related to your extreme anxiety that you are currently being treated and further evaluated for. They recommended further followup outpatient for this with both Neurology and a neuropsychologist. You were also seen by speech therapy and they recommend outpatient speech services to help as well. Please continue with your anxiety treatments and your use of CPAP when you sleep at night. You noted a rash on your back on the day of discharge. Prescribing you the topical medication triamcinolone to help with it. Please use it as directed. Please also keep close follow up with your primary care provider after discharge. Total Time Total Time Spent Total Time Spent (In Minutes): > 30 minutes
[2023-05-08 14:00] VITALS: BP 118/70
[2023-05-08 15:17] LABS: Lyme Ab IgG w/WB Rflx Negative (Negative); Lyme Ab IgM w/WB Rflx Negative (Negative)
== END 2023-05-08 16:45 | disposition home health service (06) | DRG 177 ==
LOC: ED 09:02 → EDINP 13:07 → SUATTDRO 13:07 → 2S 15:16